=== PATIENT | male | born 1965 | race Caucasian/White ===

== ENCOUNTER → 2017-12-12 09:40 | Outpatient (CLI) | payer BC, SELFPAY ==
[2017-12-12 11:07] LABS: Amphetamine Urine VISTA NEGATIVE (<1000 ng/mL); Barbiturate Urine VISTA NEGATIVE (< 200 ng/mL); Benzodiazepine Urine VISTA NEGATIVE (< 200 ng/mL); Cocaine Urine VISTA NEGATIVE (< 300 ng/mL); Ecstacy Urine VISTA NEGATIVE (< 500 ng/mL); Methadone Urine VISTA NEGATIVE (< 300 ng/mL); PCP Urine VISTA NEGATIVE (< 25 ng/mL); THC Urine VISTA NEGATIVE (< 50 ng/mL); Vista UDS pH Range 5
== END ==
PROVIDERS: Family Provider Family Medicine; PCP Family Medicine; Referring Provider Anesthesiology Pain Medicine; Visit Provider Anesthesiology Pain Medicine
DX: F11.20 Opioid dependence, uncomplicated (principal)
CPT/HCPCS: 80307

== ENCOUNTER → 2018-05-24 13:29 | Outpatient (CLI) | payer BC, SELFPAY ==
--- NOTE | 2018-05-24 13:34 | MRI_ITS ---
STUDY: MRI LUMBAR SPINE WITHOUT CONTRAST REASON FOR EXAM: Male, 52 years old. Lower back pain TECHNIQUE: Standardized fat and water weighted pulse sequences were obtained in the sagittal and axial planes. COMPARISON: None FINDINGS: T12-L1: Normal endplates. Normal disc height, hydration and morphology. Normal bilateral facet joints. Normal central canal and bilateral lateral recesses. Normal bilateral intervertebral neural foramina. Normal lumbar lordosis. There is no substantial scoliosis. Normal conus medullaris that terminates at the L1 level. L1-2: Endplate spondylosis. Decreased disc height and small circumferential disc bulge. Degenerative changes of the bilateral facet joints. Mild narrowing of the central canal and bilateral intervertebral neural foramina. L2-3: Normal endplates. Normal disc height, hydration and morphology. Normal bilateral facet joints. Normal central canal and bilateral lateral recesses. Normal bilateral intervertebral neural foramina. L3-4: Endplate spondylosis. Decreased disc height and small circumferential disc bulge. Degenerative changes of the bilateral facet joints. Mild narrowing of the central canal and bilateral intervertebral neural foramina. L4-5: Endplate spondylosis. Decreased disc height and moderate circumferential disc bulge. 5 mm spondylolisthesis. Degenerative changes of the bilateral facet joints. Severe narrowing of the central canal and moderate narrowing of the bilateral intervertebral neural foramina. L5-S1: Endplate spondylosis. Bilateral laminectomy and posterior fusion. Degenerative changes of the bilateral facet joints. Mild narrowing of the bilateral intervertebral neural foramina. Normal visualized sacral ala. Normal visualized paraspinous soft tissue structures. MRI/Spine Lumbar (Routine) IMPRESSION: Multilevel degenerative changes, as described above. Electronically Signed: Clint Cope, at 8:21 EDT Tel , Service support ,
--- NOTE | 2018-05-24 13:50 | RAD_ITS ---
STUDY: X-RAY - ORBITS REASON FOR EXAM: Male, 52 years old. This study is being performed as a clearance examination for exclusion of orbital metal, prior to the performance of an MRI examination. TECHNIQUE: 2 view(s) of the orbits were obtained. COMPARISON: None. FINDINGS: Normal bilateral orbits without a metallic orbital foreign body. Normal visualized facial bones. Normal paranasal sinuses. The soft tissue structures are unremarkable. RAD/Orbits for Foreign Body IMPRESSION: No demonstrated metallic orbital foreign body. The patient is cleared for an MRI examination. Electronically Signed: Severino Leone, at 13:59 EDT , Service support ,
== END ==
LOC: MRI 13:30
PROVIDERS: Family Provider Family Medicine; PCP Family Medicine; Referring Provider Anesthesiology Pain Medicine; Visit Provider Anesthesiology Pain Medicine
DX: M54.9 Dorsalgia, unspecified (principal); M79.606 Pain in leg, unspecified
CPT/HCPCS: 70030; 72148

== ENCOUNTER → 2019-09-24 10:05 | Outpatient (CLI) | payer BC, SELFPAY ==
[2019-09-24 12:29] LABS: Amphetamine Urine VISTA NEGATIVE (<1000 ng/mL); Barbiturate Urine VISTA NEGATIVE (< 200 ng/mL); Benzodiazepine Urine VISTA NEGATIVE (< 200 ng/mL); Cocaine Urine VISTA NEGATIVE (< 300 ng/mL); Ecstacy Urine VISTA NEGATIVE (< 500 ng/mL); Methadone Urine VISTA NEGATIVE (< 300 ng/mL); PCP Urine VISTA NEGATIVE (< 25 ng/mL); THC Urine VISTA NEGATIVE (< 50 ng/mL); Vista UDS pH Range 7
== END ==
PROVIDERS: PCP Family Medicine; Referring Provider Anesthesiology Pain Medicine; Visit Provider Anesthesiology Pain Medicine
DX: F11.20 Opioid dependence, uncomplicated (principal)
CPT/HCPCS: 80307

== ENCOUNTER → 2020-04-05 09:18 | Outpatient (CLI) | payer BC, SELFPAY ==
[2020-04-05 10:13] LABS: Amphetamine Urine VISTA NEGATIVE (<1000 ng/mL); Barbiturate Urine VISTA NEGATIVE (< 200 ng/mL); Benzodiazepine Urine VISTA NEGATIVE (< 200 ng/mL); Cocaine Urine VISTA NEGATIVE (< 300 ng/mL); Ecstacy Urine VISTA POSITIVE (< 500 ng/mL); Methadone Urine VISTA NEGATIVE (< 300 ng/mL); PCP Urine VISTA NEGATIVE (< 25 ng/mL); THC Urine VISTA NEGATIVE (< 50 ng/mL); Vista UDS pH Range 5
== END ==
PROVIDERS: PCP Family Medicine; Referring Provider Anesthesiology Pain Medicine; Visit Provider Anesthesiology Pain Medicine
DX: F11.20 Opioid dependence, uncomplicated (principal)
CPT/HCPCS: 80307

== ENCOUNTER → 2021-02-24 10:24 | Outpatient (CLI) | payer BC, SELFPAY ==
[2021-02-24 11:05] LABS: Amphetamine Urine VISTA NEGATIVE (<1000 ng/mL); Barbiturate Urine VISTA NEGATIVE (< 200 ng/mL); Benzodiazepine Urine VISTA NEGATIVE (< 200 ng/mL); Cocaine Urine VISTA NEGATIVE (< 300 ng/mL); Ecstacy Urine VISTA POSITIVE (< 500 ng/mL); Methadone Urine VISTA NEGATIVE (< 300 ng/mL); PCP Urine VISTA NEGATIVE (< 25 ng/mL); THC Urine VISTA NEGATIVE (< 50 ng/mL); Vista UDS pH Range 6
== END ==
PROVIDERS: PCP Family Medicine; Visit Provider Anesthesiology Pain Medicine
DX: F11.20 Opioid dependence, uncomplicated (principal)
CPT/HCPCS: 80307

== ENCOUNTER → 2022-02-23 | Outpatient (CLI) | payer BC, SELFPAY ==
[2022-02-23 10:45] LABS: Amphetamine Urine VISTA NEGATIVE (<1000 ng/mL); Barbiturate Urine VISTA NEGATIVE (< 200 ng/mL); Benzodiazepine Urine VISTA NEGATIVE (< 200 ng/mL); Cocaine Urine VISTA NEGATIVE (< 300 ng/mL); Ecstacy Urine VISTA POSITIVE (< 500 ng/mL); Methadone Urine VISTA NEGATIVE (< 300 ng/mL); PCP Urine VISTA NEGATIVE (< 25 ng/mL); THC Urine VISTA NEGATIVE (< 50 ng/mL); Vista UDS pH Range 5
== END | disposition home or self-care (01) ==
PROVIDERS: PCP Family Medicine; Referring Provider Anesthesiology Pain Medicine; Visit Provider Anesthesiology Pain Medicine
DX: F11.20 Opioid dependence, uncomplicated (principal)
CPT/HCPCS: 80307

== ENCOUNTER → 2024-10-30 | Outpatient (CLI) | payer BC, SELFPAY ==
--- NOTE | 2024-10-30 08:34 | RAD_ITS ---
PROCEDURE: CERV SPINE 2 OR 3 VIEWS 10/30/2024 REASON FOR EXAM: RADICULOPATHY, CERVICAL REGION TECHNIQUE: CERV SPINE 2 OR 3 VIEWS COMPARISON: None. FINDINGS: BONES: No fracture or focal osseous lesion. Anatomic spinal alignment. DISC/DEGENERATIVE CHANGES: Moderate disc space narrowing at C6-C7. Minimal vertebral endplate osteophytes at a few levels. Multilevel facet arthropathy bilaterally. SOFT TISSUES: No acute abnormality seen. RAD/Cerv Spine 2 or 3 Views IMPRESSION: 1. No acute osseous abnormality. 2. Spondylosis and degenerative disc disease. Reading Location: [id number]
== END | disposition home or self-care (01) ==
PROVIDERS: PCP Family Medicine; Referring Provider Anesthesiology Pain Medicine; Visit Provider Anesthesiology Pain Medicine
DX: M54.12 Radiculopathy, cervical region (principal)
CPT/HCPCS: 72040

== ENCOUNTER → 2024-12-12 | Outpatient (CLI) | payer BC, SELFPAY ==
--- NOTE | 2024-12-12 07:29 | MRI_ITS ---
PROCEDURE: SPINE CERVICAL (ROUTINE) 12/12/2024 REASON FOR EXAM: RADICULOPATHY TECHNIQUE: Procedure Code: MRISP Modality: MR Procedure: SPINE CERVICAL (ROUTINE) Multiplanar and multisequence images were obtained without IV contrast administration. COMPARISON: Radiographs dated 10/30/2024. FINDINGS: No acute fracture. Minimal grade 1 anterolisthesis of C4 on C5. Minimal to mild disc narrowing with anterior and posterior annular tears are noted at C4-5, C5-6, and C6-7. The bone marrow signal is unremarkable. The cervical cord is normal in size and signal. The cervicomedullary junction and prevertebral soft tissues appear unremarkable. C2-3: Unremarkable. No significant canal or neural foraminal narrowing. C3-4: Mild posterior disc bulge and mild bilateral facet arthrosis result in mild bilateral neural foraminal narrowing. No significant thecal sac narrowing. C4-5: Minimal grade 1 anterolisthesis of C4 on C5, mild disc narrowing, mild bilateral uncovertebral spurring, and left facet arthrosis result in moderate left and mild right neural foraminal narrowing. C5-6: Mild disc narrowing, a diffuse posterior disc bulge, bilateral uncovertebral spurring, and bilateral facet arthrosis result in mild narrowing of the thecal sac to 9 mm (AP) and severe bilateral neural foraminal narrowing. C6-7: Moderate disc narrowing, a diffuse posterior disc bulge, bilateral uncovertebral spurring, and bilateral facet arthrosis result in borderline narrowing of the thecal sac to 10 mm (AP) and severe right and mild left neural foraminal narrowing. C7-T1: Unremarkable. No significant canal or neural foraminal narrowing. MRI/Spine Cervical (Routine) IMPRESSION: Moderate cervical spondylosis, as described above. Reading Location: [id number]
--- OUTSIDE RECORDS SUMMARY | 2024-12-12 07:30 | XMS RPT_ITS | CCD ---
Author Organization [facility] Care Team Providers Care Independent Distributor Name Role Phone Silvia TERRENCE, Marimar Hutchison Unavailable Unavailable Primary Care Provider Unavailabl e Jose Manuel TREVINO, Kelli Unavailable Patrice CATHERINE, Marin Olsen Unavailable [phone] Sheets DO, Navya C Primary Care Provider Sheets DO, Navya C Primary Care Provider Sheets DO, Navya C Primary Care Provider [phone] Sheets DO, Navya C Primary Care Provider SHEETS, NAVYA C Referring Unavailable SHEETS, NAVYA C Primary Care Unavailable Unavailable Primary Care Provider UnavailLianet Pierce MD Unavailable [phone] SHEETS, NAVYA C Primary Care Unavailable KARON BRANDON Attending Unavailable SHEETS, NAVYA C Attending Unavailable SELF Referring Unavailable SHEETS, NAVYA C Primary Care Unavailable SHEETS, NAVYA C Referring Unavailable SHEETS, NAVYA C Primary Care Unavailable SHEETS, NAVYA C Attending Unavailable SHEETS, NAVYA C Primary Care Unavailable SHEETS, NAVYA C Attending Unavailable SELF Referring Unavailable SHEETS, NAVYA C Primary Care Unavailable SHEETS, NAVYA C Referring Unavailable SHEETS, NAVYA C Primary Care Unavailable PROVIDER, UNKNOWN Admitting Unavailable PROVIDER, UNKNOWN Attending Unavailable LIANET ALONZO Attending Unavailable PROVIDER, UNKNOWN Admitting Unavailable PROVIDER, UNKNOWN Attending Unavailable PROVIDER, UNKNOWN Admitting Unavailable PROVIDER, UNKNOWN Admitting Unavailable PROVIDER, UNKNOWN Attending Unavailable PROVIDER, UNKNOWN Admitting Unavailable LIANET ALONZO Attending Unavailable Sheets DO, Dr. Navya Primary Care Provider Dr. Michael King MD Attending Provider Dr. Michael King MD Referring Provider Navya Rodríguez Primary Care Unavailable Michael King Attending Unavailable Michael King Referring Unavailable Michael King Referring Unavailable Navya Rodríguez Primary Care Unavailable Michael King Attending Unavailable Allergies Allergy Classification Reported Allergen(s) Allergy Type Date of Onset Reaction(s) Facility Chlorpheniramine / Pseudoephedrine (2 sources) Chlorpheniramine / Pseudoephedrine Drug Allergy 10-20-19 16 [facility] Glycopeptides (antibiotic) (2 sources) Vancomycin Drug Allergy 10-20-19 16 [facility] Pollen (2 sources) Pollen Substance Allergy 11-28-19 15 Other: See Comments [facility] (4 sources) House dust mite; Translations: [DUST MITES] allergy to substance 11-28-19 15 head congestion [facility] Work Phone: (4 sources) Mold Extract; Translations: [MOLD] Drug Allergy 09-24-19 21 head congestion [facility] Work Phone: (4 sources) PLANT POLLENS; Translations: [PLANT POLLENS] allergy to substance 09-24-19 21 hay fever [facility] Work Phone: (20 sources) Chlorpheniramine / Pseudoephedrine; Translations: [MED-HIST] Drug Allergy 10-20-19 16 [facility] (20 sources) Pollen; Translations: [POLLENS EXTRACT] Drug Allergy 11-28-19 15 Other: See Comments [facility] (20 sources) Vancomycin; Translations: [VANCOMYCIN] Drug Allergy 10-20-19 16 [facility] (14 sources) redtop grass pollen extract; Translations: [GRAMINEAE POLLENS] Drug Allergy 11-28-19 15 Other [facility] Medications Current Medications Medication Drug Class(es) Dates Sig (Normalized) Sig (Original) cephalexin 500 mg oral capsule (3 sources) Cephalosporin Antibacterial Start: 08-28-2023 End: 09-02-2023 take 1 capsule by mouth four times daily cephALEXin (KEFLEX) 500 mg capsule Take 1 capsule by mouth four times daily for 5 days. 20 capsule 0 08/28/2023 09/02/2023 Active Start: 08-18-2022 End: 08-25-2022 take 1 capsule by mouth four times daily cephALEXin (KEFLEX) 500 mg capsule Take 1 capsule by mouth four times daily for 7 days. 28 capsule 0 08/18/2022 08/25/2022 Active Comment on above: Take 1 capsule by [facility] four times daily for 7 days. erythromycin 0.005 mg/mg ophthalmic ointment (1 source) Macrolide, Macrolide Antimicrobial Start: 023 End: erythromycin (ROMYCIN) 5 mg/gram (0.5 %) ophthalmic ointment Use 1 application in the left eye four times daily for 7 days. 1 g 0 07/08/2022 07/15/2022 Active Comment on above: Use 1 application in the left eye four times daily for 7 days. ondansetron 4 mg disintegrating oral tablet (1 source) Serotonin-3 Receptor Antagonist Start: End: take 1 tablet by mouth every six hours as needed ondansetron orally disintegrating (ZOFRAN ODT) 4 mg disintegrating tablet Take 1 tablet by mouth every 6 hours as needed for nausea/vomiting for up to 7 days. 20 tablet 0 07/11/2021 07/18/2021 Active Comment on above: Take 1 tablet by [facility] every 6 hours as needed for nausea/vomiting for up to 7 days. predniSONE 1 mg oral tablet (20 sources) Start: 025 End: 025 take 2 tablets by mouth once daily, then take 1 tablet by mouth once daily predniSONE (DELTASONE) 1 MG tablet Indications: Polymyalgia rheumatica (HCC) Take 2 Tablets by mouth daily for 30 days, THEN 1 Tablet daily. 90 Tablet 09/29/2024 11/28/2024 Active Start: 07-03-2024 End: 09-01-2024 take 4 tablets by mouth once daily, then take 3 tablets by mouth once daily predniSONE (DELTASONE) 1 MG tablet Indications: Polymyalgia rheumatica (HCC) Take 4 Tablets by mouth daily for 30 days, THEN 3 Tablets daily. 210 Tablet 07/03/2024 09/01/2024 Active Start: 03-03-2024 End: 06-01-2024 take 4 tablets by mouth once daily, then take 3 tablets by mouth once daily, then take 2 tablets by mouth once daily predniSONE (DELTASONE) 1 MG tablet Take 4 Tablets by mouth daily for 30 days, THEN 3 Tablets daily for 30 days, THEN 2 Tablets daily. 270 Tablet 03/03/2024 06/01/2024 Active Start: 03-03-2024 End: 10-06-2024 take 1 tablet by mouth once daily predniSONE (DELTASONE) 5 MG tablet Take 1 Tablet by mouth daily. 30 Tablet 2 03/03/2024 07/03/2024 Discontinued Start: 12-10-2023 End: 02-08-2024 take 3.5 tablets by mouth once daily predniSONE (DELTASONE) 5 MG tablet Take 3.5 Tablets by mouth daily. 105 Tablet 1 12/10/2023 02/08/2024 Active Start: 08-21-2023 End: 12-10-2023 take 1 tablet by mouth once daily predniSONE (DELTASONE) 20 mg tablet Indications: Arthralgia, unspecified joint Take 1 tablet by mouth once daily. 20 tablet 11/23/2023 Active Start: 09-11-2022 End: 09-16-2022 take 2 tablets by mouth once daily predniSONE (DELTASONE) 20 mg tablet Take 2 tablets by mouth once daily for 5 days. 10 tablet 0 09/11/2022 09/16/2022 Active Start: 10-13-2021 take 3 tablets by mo ut once daily, then take 2 tablets by mouth once daily, then take 1 tablet by mouth once daily predniSONE (DELTASONE) 20 mg tablet Indications: Poison sai Take 3 pills by mouth daily for 3 days, then 2 pills by mouth daily for 3 days, then 1 pill by mouth daily for 3 days 18 tablet 0 10/13/2021 Active take 1 tablet by danny once daily predniSONE (DELTASONE) 1 mg tablet Indications: Chronic left shoulder pain Take 1 mg by mouth once daily. Active Comment on above: Take 3 pills by mout h daily for 3 days, then 2 pills by mouth daily for 3 days, then 1 pill by mouth daily for 3 days Take 2 tablets by mo uth once daily for 5 days. sertraline 50 mg oral tablet (20 sources) Serotonin Reuptake Inhibitor Start: 05-07-2023 End: 08-28-2024 take 1 tablet by mouth once daily sertraline (ZOLOFT) 50 MG tablet Take 50 mg by mouth daily. 10/15/2023 Active Start: 08-06-2020 End: 02-12-2023 take 1 tablet by mouth once daily sertraline (ZOLOFT) 50 mg tablet Indications: Depressive disorder take 1 tablet by mouth once daily 30 tablet 2 02/12/2023 Active Comment on above: take 1 tablet by danny th once daily SUMAtriptan 100 mg oral tablet (20 sources) Serotonin-1b and Serotonin-1d Receptor Agonist Start: 1 End: 5 take 1 tablet by mouth every two hours, then take 2 tablets by mouth every twenty-four hours SUMAtriptan (IMITREX) 100 MG tablet take 1 tablet by mouth AT ONSET OF HEADACHE may repeat in 2 hours IF headache PERSISTS maximum daily dose of 2 tablets ( 200 milligrams ) every 24 hours 11/13/2023 Active Comment on above: take 1 tablet by danny th AT ONSET OF HEADACHE may repeat in 2 hours if needed maximum daily dose of 2 Take 1 tablet when h eadache starts, may take again in 2 hours, no more than 2 tablets in 24 hours traMADol hydrochloride 50 mg oral tablet (20 sources) Opioid Agonist Start: 0 take 1 tablet by mouth twice daily TRAMADOL HCL 50 MG TABS 1 tablet by mouth twice a day tramadol [id number] [facility] Start: 05-12-2019 take 1 tablet by danny th three times daily tramadol (ULTRAM) 50 MG tablet Take 50 mg by mouth 3 times daily. 11/02/2023 Active Comment on above: tid traZODone hydrochloride 150 mg oral tablet (20 sources) Serotonin Reuptake Inhibitor Start: 2 End: 5 take 1 tablet by mouth at bedtime trazodone 150 MG tablet Take 150 mg by mouth at bedtime. 10/04/2023 Active Start: 05-08-2021 take 1 tablet by danny th at bedtime traZODone (DESYREL) 150 mg tablet Indications: Chronic insomnia take 1 tablet by mouth at bedtime 30 tablet 5 05/08/2021 Active Start: 09-23-2020 take 2 tablets by mo uth once daily TRAZODONE HCL 50 MG TABS 2 tablet by mouth every night trazodone [id number] Tamra Campos [employer] ARTIST Comment on above: take 1 tablet by danny th at bedtime Take 1 tablet by danny th daily at bedtime. Completed/Discontinued Medications Medication Drug Class(es) Dates Sig (Normalized) Sig (Original) [id number] 200 actuat albuterol 0.09 mg/actuat metered dose inhaler (20 sources) beta2-Adrenergic Agonist Start: 07-15-2020 End: 09-04-2023 take 2 puff(s) by inhalation every four hours as needed albuterol HFA (PROAIR HFA) 90 mcg/actuation inhaler Indications: Mild intermittent asthma with acute exacerbation Inhale 2 Puffs as instructed every 4 hours as needed. 1 Each 2 07/15/2020 09/04/2023 Discontinued Comment on above: Inhale 2 Puffs as in structed every 4 hours as needed. betamethasone 3 mg/ml / betamethasone acetate 3 mg/ml injectable suspension (1 source) Corticosteroid Start: 04-23-2023 End: 04-23-2023 betamethasone acetate-betamethas one sodium phosphate 6 mg injection (CELESTONE) fluticasone propionate 0.05 mg/actuat metered dose nasal spray (20 sources) Corticosteroid Start: 04-04-2021 End: 09-04-2023 take 1 spray(s) nasal route once daily fluticasone (FLONASE) 50 mcg/actuation nasal spray instill 1 spray into each nostril once daily 16 g 2 09/20/2021 09/04/2023 Discontinued Comment on above: instill 1 spray into each nostril once daily fluticasone / salmeterol (20 sources) Corticosteroid, beta2-Adrenergic Agonist Start: 06-29-2021 End: 08-21-2023 take 1 puff(s) by mouth twice daily fluticasone-salmet neena (ADVAIR, WIXELA) 250-50 mcg/dose inhaler Indications: Moderate persistent asthma, uncomplicated inhale 1 puff by mouth twice a day 1 Each 2 06/29/2021 08/21/2023 Discontinued (Other) Start: 06-29-2021 take 1 puff(s) by [facility] twice daily fluticasone-salmeterol (ADVAIR, WIXELA) 250-50 mcg/dose inhaler Indications: Moderate persistent asthma, uncomplicated inhale 1 puff by mouth twice a day 1 Each 2 06/29/2021 Active Start: 05-04-2021 End: 06-29-2021 take 1 puff(s) by mouth twice daily fluticasone-salmeterol (ADVAIR, WIXELA) 250-50 mcg/dose inhaler Indications: Moderate persistent asthma, uncomplicated inhale 1 puff by mouth twice a day 1 Each 2 06/29/2021 Active Comment on above: inhale 1 puff by danny th twice a day inhale 1 puff by danny and INTO THE LUNGS twice a day Lidocaine (1 source) Antiarrhythmic, Amide Local Anesthetic Start: 4 End: 4 lidocaine 10 mg/mL (1 %) 1 mL injection (XYLOCAINE) lisinopril 10 mg oral tablet (11 sources) Angiotensin Converting Enzyme Inhibitor Start: 2 take 1 tablet by mouth once daily lisinopril (ZESTRIL, PRINIVIL) 10 mg tablet Indications: Essential hypertension take 1 tablet by mouth once daily 30 tablet 1 05/19/2021 Active lisinopril table t tablet by mouth lisinopril tablet Shahida Lopez Comment on above: take 1 tablet by danny once daily loperamide hydrochloride 2 mg oral capsule (5 sources) Opioid Agonist Start: 2 End: 2 take 1 capsule by mouth every six hours as needed loperamide (IMODIUM) 2 mg cap(s) Take 1 capsule by mouth four times daily as needed for diarrhea for up to 7 days. 20 capsule 0 07/11/2021 Active Comment on above: Take 1 capsule by [facility] four times daily as needed for diarrhea for up to 7 days. 12 hr morphine sulfate 15 mg extended release oral tablet (20 sources) Opioid Agonist Start: 1 take 1 tablet by mouth twice daily MS CONTIN 15 MG CR-TABS 1 tablet by mouth twice a day morphine [id number] Tamra Pichardos [employer] Start: 10-22-2019 take 1 tablet by danny th twice daily morphine SR (MS CONTIN, ORAMORPH SR) 15 mg 12 hr tablet TAKE 1 TABLET BY MOUTH TWICE DAILY for up to 28 days 10/22/2019 Active Comment on above: TAKE 1 TABLET BY DANNY TH TWICE DAILY for up to 28 days naproxen 500 mg oral tablet (1 source) Nonsteroidal Anti-inflammatory Drug Start: 12-05-2019 NAPROSYN 500 MG TABS 1 tablet by mouth as directed as needed naproxen [id number] Tamra Campos [employer] ART[employer] Problems Active Problems Problem Classification Problem Date Documented Da te Episodic/Chronic Allergic reactions (12 sources) Contact dermatitis due to poison sai; Translations: [Allergic contact dermatitis due to plants, except food] Onset: 05-03-2018 05-03-2018 Episodic Asthma (20 sources) Uncomplicated moderate persistent asthma; Translations: [Moderate persistent asthma, uncomplicated] Onset: 11-19-2015 Chronic Disorders of lipid metabolism (20 sources) Mixed hyperlipidemia; Translations: [Mixed hyperlipidemia] Onset: 06-22-2017 06-22-2017 Chronic Essential hypertension (11 sources) Essential hypertension; Translations: [Essential (primary) hypertension] 03-08-2021 Chronic Headache; including migraine (20 sources) Migraine without aura, not refractory ; Translations: [Migraine without aura, not intractable, without status migrainosus] Onset: 05-03-2018 05-03-2018 Chronic Miscellaneous mental health disorders (20 sources) Chronic insomnia; Translations: [Psychophysiologic insomnia] Onset: 10-13-2016 Resolved: 03-23-2017 03-23-2017 Chronic Mood disorders (20 sources) Depressive disorder; Translations: [Depressive disorder] 03-08-2021 Chronic Osteoarthritis (4 sources) Bilateral primary osteoarthritis of knee; Translations: [Osteoarthrosis, localized, primary, lower leg] Onset: 08-21-2019 08-21-2019 Chronic Other aftercare (2 sources) Postoperative visit; Translations: [Encounter for other specified surgical aftercare] Onset: 06-21-2021 06-22-2021 Episodic Other connective tissue disease (4 sources) History of total knee arthroplasty; Translations: [Presence of right artificial knee joint] Onset: 04-04-2021 04-05-2021 Chronic Other connective tissue disease (20 sources) Polymyalgia rheumatica; Translations: [Polymyalgia rheumatica] Onset: 12-25-2023 12-25-2023 Chronic Other connective tissue disease (1 source) Polymyalgia rheumatica; Translations: [Polymyalgia rheumatica (HCC)] Onset: 12-31-2023 Chronic Other connective tissue disease (3 sources) H/O: osteoarthritis; Translations: [Personal history of other diseases of the musculoskeletal system and connective tissue] 11-23-2023 Episodic Other gastrointestinal disorders (1 source) Stool DNA-based colorectal cancer screening positive; Translations: [Other fecal abnormalities] 11-03-2022 Episodic Other nervous system disorders (1 source) Other chronic pain; Translations: [Chronic left shoulder pain] Onset: 10-06-2024 Chronic Other nervous system disorders (3 sources) Paresthesia of hand ; Translations: [Anesthesia of skin] 08-29-2023 Episodic Other nervous system disorders (2 sources) Anesthesia of skin; Translations: [Numbness and tingling in left hand] Onset: 08-29-2023 Episodic Other nervous system disorders (2 sources) Paresthesia of skin; Translations: [Numbness and tingling in left hand] Onset: 08-29-2023 Episodic Other non-traumatic joint disorders (4 sources) Arthropathy of knee joint; Translations: [Ankylosis, unspecified knee] Onset: 05-20-2021 05-20-2021 Chronic Other non-traumatic joint disorders (20 sources) Pain in left shoulder; Translations: [Pain in joint, shoulder region] Onset: 06-22-2017 06-22-2017 Episodic Other non-traumatic joint disorders (2 sources) Joint pain; Translations: [Pain in unspecified joint] 10-23-2023 Episodic Other non-traumatic joint disorders (2 sources) Hip pain; Translations: [Pain in right hip] 10-23-2023 Episodic Other non-traumatic joint disorders (6 sources) Multiple joint pain; Translations: [Pain in unspecified joint] 11-23-2023 Episodic Other non-traumatic joint disorders (1 source) Chronic pain of left upper limb; Translations: [Pain in left shoulder] 10-06-2024 Episodic Other nutritional; endocrine; and metabolic disorders (20 sources) Obese class I; Translations: [Obesity, unspecified] Onset: 06-22-2017 06-22-2017 Chronic Other nutritional; endocrine; and metabolic disorders (20 sources) Body mass index 30+ - obesity; Translations: [Body mass index (BMI) 31.0-31.9, adult] Onset: 04-21-2019 05-20-2021 Chronic Other screening for suspected conditions (not mental disorders or infectious disease) (1 source) Encounter for screening for malignant neoplasm of prostate; Translations: [Screening for prostate cancer] Onset: 10-06-2024 Episodic Residual codes; unclassified (3 sources) Edema of right lower leg; Translations: [Localized edema] Onset: 06-20-2021 06-20-2021 Episodic Spondylosis; intervertebral disc disorders; other back problems (4 sources) Degeneration of lumbar intervertebral disc; Translations: [Other intervertebral disc degeneration, lumbar region] Onset: 06-24-2018 06-24-2018 Chronic Spondylosis; intervertebral disc disorders; other back problems (20 sources) Spinal stenosis; Translations: [Spinal stenosis, site unspecified] Onset: 11-19-2015 Resolved: 05-26-2016 06-24-2018 Episodic Superficial injury; contusion (1 source) Abrasion of left upper arm, initial encounter; Translations: [Abrasion of left arm, initial encounter] Onset: 10-24-2024 Episodic Unclassified (1 source) Chronic pain of left upper limb 10-28-2024 Unclassified (1 source) Obesity, Class I, BMI 30-34.9; Translations: [Obesity, Class I, BMI 30-34.9] Onset: 06-22-2017 Unclassified (1 source) F/U HTN 6 Month Onset: 07-02-2024 Past or Other Problems Problem Classification Problem Date Documented Date Episodic/Chronic Fracture of lower limb (20 sources) Fracture of tibial plateau; Translations: [Displaced bicondylar fracture of unspecified tibia, initial encounter for closed fracture] Onset: 01-07-2015 Resolved: 11-19-2015 11-19-2015 Episodic Immunizations and screening for infectious disease (11 sources) Patient encounter status; Translations: [Encounter for immunization] Onset: 11-23-2023 09-22-2022 Episodic Infective arthritis and osteomyelitis (except that caused by tuberculosis or sexually transmitted disease) (4 sources) Bacterial arthritis; Translations: [Pyogenic arthritis, unspecified] Onset: 12-17-2014 12-17-2014 Episodic Joint disorders and dislocations; trauma-related (4 sources) Tear of medial meniscus of knee; Translations: [Other tear of medial meniscus, current injury, left knee, initial encounter] Onset: 10-31-2019 10-31-2019 Episodic Joint disorders and dislocations; trauma-related (4 sources) Tear of medial meniscus of knee; Translations: [Other tear of medial meniscus, current injury, right knee, initial encounter] Onset: 12-02-2015 12-02-2015 Episodic Other acquired deformities (4 sources) Stenosis of lumbar vertebral foramen; Translations: [Other biomechanical lesions of lumbar region] Onset: 06-24-2018 06-24-2018 Episodic Other acquired deformities (4 sources) Spondylolisthesis; Translations: [Spondylolisthesis, lumbar region] Onset: 06-24-2018 06-24-2018 Episodic Other circulatory disease (20 sources) Elevated blood-pressure reading without diagnosis of hypertension; Translations: [Elevated blood-pressure reading, without diagnosis of hypertension] Onset: 08-21-2023 08-21-2023 Episodic Other connective tissue disease (4 sources) Lateral epicondylitis of right humerus; Translations: [Lateral epicondylitis, right elbow] Onset: 2019 2019 Episodic Other connective tissue disease (4 sources) Complete rotator cuff tear or rupture of left shoulder, not specified as traumatic; Translations: [Complete rupture of rotator cuff] Onset: 09-06-2017 09-06-2017 Episodic Other connective tissue disease (8 sources) Impingement syndrome of shoulder region; Translations: [Impingement syndrome of left shoulder] Onset: 06-24-2015 09-06-2017 Episodic Other connective tissue disease (20 sources) Triggering of digit; Translations: [Trigger finger, right middle finger] Onset: 09-22-2022 09-22-2022 Episodic Other connective tissue disease (20 sources) Tendonitis of left ankle; Translations: [Other enthesopathy of left foot and ankle] Onset: 08-21-2023 08-21-2023 Episodic Other infections; including parasitic (20 sources) Personal history of other infectious and parasitic diseases; Translations: [History of COVID-19] Onset: 05-20-2021 05-20-2021 Episodic Other non-traumatic joint disorders (9 sources) Shoulder pain; Translations: [Pain in left shoulder] Onset: 06-22-2017 06-22-2017 Episodic Other non-traumatic joint disorders (20 sources) Bilateral chronic pain of upper limbs; Translations: [Pain in right shoulder] Onset: 08-21-2023 08-21-2023 Episodic Other non-traumatic joint disorders (2 sources) Pain in unspecified joint; Translations: [Arthralgia, unspecified joint] Onset: 11-23-2023 Episodic Other nutritional; endocrine; and metabolic disorders (1 source) Personal history of other endocrine, nutritional and metabolic disease; Translations: [History of hypokalemia] Onset: 12-28-2023 Episodic Other skin disorders (20 sources) Eruption; Translations: [Rash and other nonspecific skin eruption] Onset: 03-23-2017 Resolved: 06-22-2017 06-22-2017 Episodic Residual codes; unclassified (4 sources) Edema of left lower leg; Translations: [Localized edema] Onset: 12-05-2019 12-05-2019 Episodic Residual codes; unclassified (4 sources) History of arthroscopy of knee joint; Translations: [Other specified postprocedural states] Onset: 12-05-2019 12-05-2019 Episodic Residual codes; unclassified (4 sources) History of arthroscopy of knee joint; Translations: [Other specified postprocedural states] Onset: 12-17-2015 12-17-2015 Episodic Unclassified (4 sources) Problem Results Test Name Value Interpretation Reference Range Facility C-REACTIVE PROTEINon 025 CRP [Mass/Vol] mg/L Normal <0.5 [facility] Comment on above: Performed By: #### C RP #### [facility] [address] [place], [place], ERYTHROCYTE SEDIMENTATION RA Annelise 10-31-2024 ESR (Bld) [Velocity] 27 mm/h High <=20 [facility] Comment on above: Performed By: #### E SR ####[facility] [id number] [place], [place], Progress Noteson 10-31-2024 Internet Developer Authentication Interface Message Text Patient was identified by name and date of . Savannah Lion MA Venipuncture performed on right hand with no complications. Site free of swelling and redness. Pressure held on site until hemostasis achieved. Placed cotton ball and tape on site. Pt tolerated procedure well. Normal [facility] [employer] [facility] Cerv Spine 2 or 3 Viewson Cerv Spine 2 or 3 Views [facility] [address] [place], [place] [address] Cerv Spine 2 or 3 Views MR#: [id number] Acct: [id number] Name: ALIX WOODY Rep #: [id number] : 1965 M 58 From: Natalia Sanabria MD PCP: Dr. Navya Rodríguez DO Status: REG CLI Study: Cerv Spine 2 or 3 Views Date of Exam: 10/30/24 Exam# [id number] Ordering Dr: Michael King MD PROCEDURE: CERV SPINE 2 OR 3 VIEWS 10/30/2024 REASON FOR EXAM: RADICULOPATHY, CERVICAL REGION TECHNIQUE: CERV SPINE 2 OR 3 VIEWS COMPARISON: None. FINDINGS: BONES: No fracture or focal osseous lesion. Anatomic spinal alignment. DISC/DEGENERATIVE CHANGES: Moderate disc space narrowing at C6-C7. Minimal vertebral endplate osteophytes at a few levels. Multilevel facet arthropathy bilaterally. SOFT TISSUES: No acute abnormality seen. RAD/Cerv Spine 2 or 3 Views IMPRESSION: 1. No acute osseous abnormality. 2. Spondylosis and degenerative disc disease. Reading Location: [facility] CC: Dr. Michael King MD; Dr. Navya Rodríguez DO Production Control Planner: Signed [facility] ED NOTEon 10-24-2024 ED NOTE HNO ID: [id number] Author: KEVEN VANESSA RN Service: Nursing Author Type: Registered Nurse Type: ED Notes Filed: 10/24/2024 19:06 Note Text: Pt was chopping wood and was cut by the tree as it was a falling Normal [facility] ED PROV NOTEon 10-24-2024 ED PROV NOTE HNO ID: [id number] Author: KARON BRANDON MD Service: Emergency Medicine Author Type: Physician Type: ED Provider Notes Filed: 10/24/2024 22:57 Note Text: ED Provider Note Patient Name: Alix Woody : 1965 SERVICE DATE: 10/24/24 History Patient presents with: Laceration Alix Woody is a 58 year old male with history of no chronic medical problems who presents with Laceration. Patient took nothing for this prior to arrival. - Symptoms began this evening. - Severity: mild - Timing: constant - Quality: Left arm abrasion - Laceration is exacerbated by movement. - Laceration is not exacerbated by rest. - Symptoms are associated with nothing. - Symptoms are not associated with pain. - Improved by nothing. Patient was cutting a tree down and the tree fell one of the sharp branches caught him on the top of the left forearm he has a skin injury and is not sure if it needs to be sutured plus he needs a tetanus shot he has not had one for many years PAST MEDICAL HISTORY Diagnosis Date Allergic rhinitis - Rx for Flonase nasal spray Asthma (HCC) - moderate persistent, Advair Backache - continue to see Dr. King, pain management Chronic back pain - chronic back pain, was seen and treated by Dr. Bailey, pain management at [facility], without relief, will refer to Dr. King, pain management, [place], [place] Depressive disorder - improved on Sertraline, trazodone Essential hypertension - continue Lisinopril - pt encouraged to put his medication in a daily pill dispenser to be able to keep track of taking it, check CBC, CMP, FLP Gastroesophageal reflux disease Insomnia - Restart trazodone Knee pain, right - s/p trauma, 2 prior surgeries in this knee, seeing Dr. Salgado, ortho, in [place]. Pt may return to work on 12/28/14 with limitations of not working more than 6 hours per day. Methicillin resistant Staphylococcus aureus infection - picc line is clogged - order given for pt to go to [facility] and have Picc line flushed with normal saline and heparin per protocol Migraine - less than twice per week, trial of motrin 800 mg every 8 hours as needed for pain Shoulder joint pain - handout on shoulder exercises, f/u with pain management for further plan of care Sleep deficient Staphylococcal arthritis, right knee (HCC) - s/p hospitalization, infection after arthroscopic surgery by Dr. Ibrahim, on home IV antibiotics PAST SURGICAL HISTORY Procedure Laterality Date APPENDECTOMY 1984 KNEE SURGERY HX Right 1977 right knee ORTHOPEDICS SURGERY HX PAST SURGICAL HISTORY OF 2004 Fusion of Spine- L5 - S1 PAST SURGICAL HISTORY OF 1994 Revision of lumbar spine- microdisection L5 - S1 SHOULDER ARTHROSCOPY/SURGERY Left 12/30/2010 left, subacromial decompression, Dr Ibrahim SEPTEMBER 2017 second surgery WRIST ARTHROSCOPY/SURGERY Left 2004 left. broken FAMILY HISTORY Problem Relation Age of Onset other (aortic aneurysm rupture) Paternal Grandfather Asthma Mother Ischemic Heart Disease Father other (Heart disease) Father Prostate Cancer Maternal Grandfather Social History[1] ALLERGIES Allergen Reactions Med-Hist Hives Hay Pollens Extract Other: See Comments Vancomycin Rash Review of Systems Gastrointestinal: Negative for nausea and vomiting. Skin: Positive for wound. Negative for color change. Allergic/Immunologic: Negative for environmental allergies, food allergies and immunocompromised state. Physical Exam Vitals BP Pulse Temp Temp src Resp SpO2 Weight Height 10/24/24 1905 10/24/24 19010/24/24 190 -- 10/24/24 1902 10/24/24 1902 10/24/24 190 -- 146/96 83 36.8 ?C (98.3 ?F) 16 95 % 99.8 kg (220 lb) Physical Exam Vitals and nursing note reviewed. Constitutional: General: He is not in acute distress. Appearance: Normal appearance. He is not ill-appearing. Pulmonary: Effort: Pulmonary effort is normal. No respiratory distress. Musculoskeletal: General: No swelling or tenderness. Comments: Superficial skin abrasion and avulsion left forearm about 4 cm in length no distal neurovascular changes. No foreign bodies noted. Skin: General: Skin is warm and dry. Capillary Refill: Capillary refill takes less than 2 seconds. Findings: No rash. Neurological: General: No focal deficit present. Mental Status: He is alert and oriented to person, place, and time. Psychiatric: Mood and Affect: Mood normal. Behavior: Behavior normal. Thought Content: Thought content normal. Diagnostic Testing ED Labs Ordered and Reviewed - No data to display Procedures ED Course / Clinical Impression Clinical Impressions as of 10/24/24 4159 Abrasion of left arm, initial encounter MDM / Disposition / Plan Left forearm wound is not requiring suture closure I think will do better to let the abrasion heal and there is a few small areas of superficial avulsion but no deep penetration into the (more content not included)... Normal [facility] CBC panel Auto (Bld)on 10-10 Erythrocyte distribution width (RBC) [Ratio] 12.2 % 11.5 - 15.0 % [facility] Hematocrit (Bld) [Volume fraction] 43.0 % 39.0 - 51.0 % [facility] Hemoglobin (Bld) [Mass/Vol] 14.5 g/dL 13.0 - 17.0 g/dL [facility] Interpretation and review of laboratory results Normal [facility] MCH (RBC) [Entitic mass] 30.8 pg 26.0 - 34.0 pg [facility] MCHC (RBC) [Mass/Vol] 33.7 g/dL 30.5 - 36.0 g/dL [facility] MCV (RBC) [Entitic vol] 91.3 fL 80.0 - 100.0 fL [facility] Platelet mean volume (Bld) [Entitic vol] 9.3 fL 9.0 - 12.7 fL [facility] Platelets (Bld) [#/Vol] 293 10*3/uL [facility] RBC (Bld) [#/Vol] 4.71 10*6/uL 4.20 - 6.0 0 m/uL [facility] WBC (Bld) [#/Vol] 6.89 10*3/uL [facility] Erythrocyte distribution width (RBC) [Ratio] 12.2 % Normal 11.5-15.0 [facility] Comment on above: Order Comment: Speci men Type: BLOOD SPECIMENOrdering Facility: [facility] Address: [address] [place] [address] Performed By: #### 5 8410-2 ####[facility] LABCLIA [id number] [place] [address] [facility] Hematocrit (Bld) [Volume fraction] 43.0 % Normal 39.0-51.0 [facility] Comment on above: Order Comment: Speci men Type: BLOOD SPECIMENOrdering Facility: [facility] Address: [address] [place] [address] Performed By: #### 5 8410-2 ####[facility] LABCLIA [id number] [place] [address] [facility] Hemoglobin (Bld) [Mass/Vol] 14.5 g/dL Normal 13.0-17.0 [facility] Comment on above: Order Comment: Speci men Type: BLOOD SPECIMENOrdering Facility: [facility] Address: [address] [place] [address] Performed By: #### 5 8410-2 ####[facility] LABCLIA [id number] [place] [address] [place] [facility] MCH (RBC) [Entitic mass] 30.8 pg Normal 26.0-34.0 [facility] Comment on above: Order Comment: Speci men Type: BLOOD SPECIMENOrdering Facility: [facility] Address: [address] [place] [address] Performed By: #### 5 8410-2 ####[facility] LABCLIA [id number] [place] [address] [place] [facility] MCHC (RBC) [Mass/Vol] 33.7 g/dL Normal 30.5-36.0 [facility] Comment on above: Order Comment: Speci men Type: BLOOD SPECIMENOrdering Facility: [facility] Address: [address] [place] [address] Performed By: #### 5 8410-2 ####[facility] LABCLIA [id number] [place] [address] [place] MCV (RBC) [Entitic vol] 91.3 fL Normal 80.0-100.0 [facility] Comment on above: Order Comment: Speci men Type: BLOOD SPECIMENOrdering Facility: [facility] Address: [address] [place] [address] Performed By: #### 5 8410-2 ####[facility] LABCLIA [id number] [place] [address] [place] Platelet mean volume (Bld) [Entitic vol] 9.3 fL Normal 9.0-12.7 [facility] Comment on above: Order Comment: Speci men Type: BLOOD SPECIMENOrdering Facility: [facility] Address: [address] [place] [address] Performed By: #### 5 8410-2 ####[facility] LABCLIA [id number] [place] [address] [place] Platelets (Bld) [#/Vol] 293 10*3/uL Normal 150-400 [facility] Comment on above: Order Comment: Speci men Type: BLOOD SPECIMENOrdering Facility: [facility] Address: [address] [place] [address] Performed By: #### 5 8410-2 ####[facility] LABCLIA [id number] [place] [address] [place] RBC (Bld) [#/Vol] 4.71 10*6/uL Normal 4.20-6.00 [facility] Comment on above: Order Comment: Speci men Type: BLOOD SPECIMENOrdering Facility: [facility] Address: [address] [place] [address] Performed By: #### 5 8410-2 ####[facility] LABCLIA [id number] [place] [address] [facility] WBC (Bld) [#/Vol] 6.89 10*3/uL Normal 3.70-11.00 [facility] Comment on above: Order Comment: Speci men Type: BLOOD SPECIMENOrdering Facility: [facility] Address: [address] [place] [address] Performed By: #### 5 8410-2 ####[facility] LABCLIA [id number] [place] [address] [facility] Cobalamin (Vitamin B12) [Mas s/Vol]on 10-10-2024 Interpretation and review of laboratory results Normal [facility] Comprehensive metabolic 2000 panelon 10-10-2024 Albumin [Mass/Vol] 4.2 g/dL 3.9 - 4.9 g/dL [facility] ALP [Catalytic activity/Vol] 93 U/L 38 - 113 U/L [facility] ALT With P-5'-P [Catalytic activity/Vol] 21 U/L 10 - 54 U/L [facility] Anion gap [Moles/Vol] 10 mmol/L 8 - 15 mmol/L [facility] AST With P-5'-P [Catalytic activity/Vol] 26 U/L 14 - 40 U/L [facility] Bilirubin [Mass/Vol] 0.5 mg/dL 0.2 - 1.3 mg/dL [facility] Calcium [Mass/Vol] 9.5 mg/dL 8.5 - 10. 2 mg/dL [facility] Chloride [Moles/Vol] 102 mmol/L 98 - 107 mmol/L [facility] CO2 [Moles/Vol] 27 mmol/L 22 - 30 mmol/L [facility] Creatinine [Mass/Vol] 1.07 mg/dL 0.73 - 1.22 mg/dL [facility] GFR/1.73 sq M.predicted among non-blacks MDRD (S/P/Bld) [Vol rate/Area] 79 mL/min/{1.73_m2} - PINF [facility] Comment on above: Estimated Glomerular Filtration Rate (eGFR) is calculated using the 2020 CKD-EPI creatinine equation. This equation utilizes serum creatinine, sex, and age as parameters. The creatinine assay has traceable calibration to isotope dilution-mass spectrometry. Refer to KDIGO guidelines for clinical interpretation. In patients with unstable renal function, e.g. those with acute kidney injury, the eGFR may not accurately reflect actual GFR. Glucose [Mass/Vol] 97 mg/dL 74 - 99 mg/dL [facility] Comment on above: The [place] Diabete s Association (ADA) provides guidance for cutoff values for fasting glucose and random glucose. The ADA defines fasting as no caloric intake for at least 8 hours. Fasting plasma glucose results between 100 to 125 mg/dL indicate increased risk for diabetes (prediabetes). Fasting plasma glucose results greater than or equal to 126 mg/dL meet the criteria for diagnosis of diabetes. In the absence of unequivocal hyperglycemia, results should be confirmed by repeat testing. In a patient with classic symptoms of hyperglycemia or hyperglycemic crisis, random plasma glucose results greater than or equal to 200 mg/dL meet the criteria for diagnosis of diabetes. Reference: Standards of Medical Care in Diabetes 2016, [place] Diabetes Association. Diabetes Care. 2016.39(Suppl 1). Potassium [Moles/Vol] 3.9 mmol/L 3.7 - 5.1 mmol/L [facility] Protein [Mass/Vol] 7.7 g/dL 6.3 - 8.0 g/dL [facility] Sodium [Moles/Vol] 139 mmol/L 136 - 144 mmol/L [facility] Urea nitrogen [Mass/Vol] 17 mg/dL 9 - 24 mg/dL [facility] Albumin [Mass/Vol] 4.2 g/dL Normal 3.9-4.9 [facility] Comment on above: Order Comment: Speci men Type: BLOOD SPECIMENOrdering Facility: [facility] Address: [address] [place] [address] Performed By: #### 2 4323-8, 3016-3, 75712-9 ####[facility] LABCLIA [id number] [place] [address] [facility] ALP [Catalytic activity/Vol] 93 U/L Normal 38-113 [facility] Comment on above: Order Comment: Speci men Type: BLOOD SPECIMENOrdering Facility: [facility] Address: [address] [place] [address] Performed By: #### 2 4323-8, 3016-3, 15143-7 ####[facility] LABCLIA [id number] [place] [address] [place] ALT With P-5'-P [Catalytic activity/Vol] 21 U/L Normal 10-54 [facility] Comment on above: Order Comment: Speci men Type: BLOOD SPECIMENOrdering Facility: [facility] Address: [address] [place] [address] Performed By: #### 2 4323-8, 6-3, 88548-7 ####[facility] LABCLIA [id number] [place] [address] [facility] Anion gap [Moles/Vol] 10 mmol/L Normal 8-15 [facility] Comment on above: Order Comment: Speci men Type: BLOOD SPECIMENOrdering Facility: [facility] Address: [address] [place] [address] Performed By: #### 2 4323-8, 3016-3, 60665-2 ####[facility] LABCLIA [id number] [place] [address] [place] AST With P-5'-P [Catalytic activity/Vol] 26 U/L Normal 14-40 [facility] Comment on above: Order Comment: Speci men Type: BLOOD SPECIMENOrdering Facility: [facility] Address: [address] [place] [address] Performed By: #### 2 4323-8, 6-3, 23159-2 ####[facility] LABCLIA [id number] [place] [address] [place] Bilirubin [Mass/Vol] 0.5 mg/dL Normal 0.2-1.3 [facility] Comment on above: Order Comment: Speci men Type: BLOOD SPECIMENOrdering Facility: [facility] Address: [address] [place] [address] Performed By: #### 2 4323-8, 6-3, 12064-6 ####[facility] LABCLIA [id number] [place] [address] [place] Calcium [Mass/Vol] 9.5 mg/dL Normal 8.5-10.2 [facility] Comment on above: Order Comment: Speci men Type: BLOOD SPECIMENOrdering Facility: [facility] Address: [address] [place] [address] Performed By: #### 2 4323-8, 6-3, 77897-2 ####[facility] LABCLIA [id number] [place] [address] [place] Chloride [Moles/Vol] 102 mmol/L Normal 98-107 [facility] Comment on above: Order Comment: Speci men Type: BLOOD SPECIMENOrdering Facility: [facility] Address: [address] [place] [address] Performed By: #### 2 4323-8, 3016-3, 02400-9 ####[facility] LABCLIA [id number] [place] [address] [place] CO2 [Moles/Vol] 27 mmol/L Normal 22-30 [facility] Comment on above: Order Comment: Speci men Type: BLOOD SPECIMENOrdering Facility: [facility] Address: [address] [place] [address] Performed By: #### 2 4323-8, 3015-05, ####[facility] LABCLIA [id number] [place] [address] [place] Creatinine [Mass/Vol] 1.07 mg/dL Normal 0.73-1.22 [facility] Comment on above: Order Comment: Speci men Type: BLOOD SPECIMENOrdering Facility: [facility] Address: [address] [place] [address] Performed By: #### 2 4323-8, 3015-05, ####[facility] LABCLIA [id number] [place] [address] [place] eGFRcr SerPlBld CKD-EPI 2020 79 mL/min/1.73m??? Normal >=60 [facility] Comment on above: Order Comment: Speci men Type: BLOOD SPECIMENOrdering Facility: [facility] Address: [address] [place] [address] Result Comment: Jolie mated Glomerular Filtration Rate (eGFR) is calculated using the 2020 CKD-EPI creatinine equation. This equation utilizes serum creatinine, sex, and age as parameters. The creatinine assay has traceable calibration to isotope dilution-mass spectrometry. Refer to KDIGO guidelines for clinical interpretation. In patients with unstable renal function, e.g. those with acute kidney injury, the eGFR may not accurately reflect actual GFR. Performed By: #### 2 4323-8, 3015-3, ####[facility] LABCLIA [id number] [place] [address] [place] Glucose [Mass/Vol] 97 mg/dL Normal 74-99 [facility] Comment on above: Order Comment: Awilda murphy Type: BLOOD SPECIMENOrdering Facility: [facility] Address: [address] [place] [address] Result Comment: The [place] Diabetes Association (ADA) provides guidance for cutoff values for fasting glucose and random glucose. The ADA defines fasting as no caloric intake for at least 8 hours. Fasting plasma glucose results between 100 to 125 mg/dL indicate increased risk for diabetes (prediabetes). Fasting plasma glucose results greater than or equal to 126 mg/dL meet the criteria for diagnosis of diabetes. In the absence of unequivocal hyperglycemia, results should be confirmed by repeat testing. In a patient with classic symptoms of hyperglycemia or hyperglycemic crisis, random plasma glucose results greater than or equal to 200 mg/dL meet the criteria for diagnosis of diabetes. Reference: Standards of Medical Care in Diabetes 2016, [place] Diabetes Association. Diabetes Care. 2016.39(Suppl 1). Performed By: #### 2 4323-8, 3016-3, 52528-4 ####[facility] LABCLIA [id number] [place] [address] [place] Potassium [Moles/Vol] 3.9 mmol/L Normal 3.7-5.1 [facility] Comment on above: Order Comment: Awilda murphy Type: BLOOD SPECIMENOrdering Facility: [facility] Address: [address] [place] [address] Performed By: #### 2 4323-8, 3016-3, 94971-1 ####[facility] LABCLIA [id number] [place] [address] [place] Protein [Mass/Vol] 7.7 g/dL Normal 6.3-8.0 [facility] Comment on above: Order Comment: Awilda murphy Type: BLOOD SPECIMENOrdering Facility: [facility] Address: [address] [place], [place] [address] Performed By: #### 2 4323-8, 3016-3, 04261-4 ####[facility] LABCLIA [id number] [place] [address] [place] Sodium [Moles/Vol] 139 mmol/L Normal 136-144 [facility] Comment on above: Order Comment: Speci men Type: BLOOD SPECIMENOrdering Facility: [facility] Address: [address] [place] [address] Performed By: #### 2 4323-8, 3016-3, 38128-6 ####[facility] LABCLIA [id number] [place] [address] [facility] Urea nitrogen [Mass/Vol] 17 mg/dL Normal 9-24 [facility] Comment on above: Order Comment: Speci men Type: BLOOD SPECIMENOrdering Facility: [facility] Address: [address] [place] [address] Performed By: #### 2 4323-8, 3016-3, 15788-6 ####[facility] LABCLIA [id number] [place] [address] [facility] Lipid 1996 panelon 5 Cholesterol [Mass/Vol] 184 mg/dL NINF - 200 mg/dL [facility] Comment on above: <200 mg/dL, Desirabl e 200-239 mg/dL, Borderline high >239 mg/dL, High Cholesterol in HDL [Mass/Vol] 42 mg/dL 39 - PINF mg/dL [facility] Comment on above: 40-59 mg/dL, Accepta ble >59 mg/dL, High: Negative risk factor for coronary heart disease <40 mg/dL, Low: Positive risk factor for coronary heart disease Cholesterol in LDL [Mass/Vol] 124 mg/dL High NINF - 100 mg/dL [facility] Comment on above: <100 mg/dL, Optimal 100-129 mg/dL, Near optimal/above optimal 130-159 mg/dL, Borderline high 160-189 mg/dL, High >189 mg/dL, Very high Secondary prevention optimal LDL Cholesterol levels are recommended to be <70 mg/dL LDL cholesterol is calculated using the Mills-NIH equation. Cholesterol in LDL/Cholesterol in HDL [Mass ratio] 2.95 {ratio} High NINF - 2.54 [facility] Comment on above: Reference: 1. National Cholesterol Education Program ATP III Guideline At-A-Glance Quick Desk Reference: National Heart, Lung, and Blood [place]. National Institutes of Health. 2001: NIH Publication No. 01-3305. 2. An International Atherosclerosis Society position paper: global recommendations for the management of dyslipidemia: executive summary, Atherosclerosis. 2014: 232(2):410-413. Cholesterol in VLDL [Mass/Vol] 17 mg/dL NINF - 30 mg/dL [facility] Cholesterol non HDL [Mass/Vol] 142 mg/dL High NINF - 130 mg/dL [facility] Comment on above: <130 mg/dL, Optimal 130-159 mg/dL, Near optimal/above optimal 160-189 mg/dL, Borderline high 190-219 mg/dL, High >219 mg/dL, Very high Secondary prevention optimal non HDL Cholesterol levels are recommended to be <100 mg/dL Cholesterol.total/ Cholesterol in HDL [Mass ratio] 4.38 {ratio} NINF - 5.10 [facility] Fasting Time 12 hrs [facility] Interpretation and review of laboratory results Abnormal [facility] Triglyceride [Mass/Vol] 96 mg/dL NINF - 150 mg/dL [facility] Comment on above: <150 mg/dL, Normal 150-199 mg/dL, Borderline high 200-499 mg/dL, High >499 mg/dL, Very high Cholesterol [Mass/Vol] 184 mg/dL Normal <200 [facility] Comment on above: Order Comment: Awilda murphy Type: BLOOD SPECIMENOrdering Facility: [facility] Address: [address] [place] [address] Result Comment: <200 mg/dL, Desirable 200-239 mg/dL, Borderline high >239 mg/dL, High Performed By: #### 2 4323-8, 3016-3, 57109-5 ####[facility] LABCLIA [id number] [place] [address] [facility] Cholesterol in HDL [Mass/Vol] 42 mg/dL Normal >39 [facility] Comment on above: Order Comment: Awilda murphy Type: BLOOD SPECIMENOrdering Facility: [facility] Address: [address] [place] [address] Result Comment: 40-5 9 mg/dL, Acceptable >59 mg/dL, High: Negative risk factor for coronary heart disease <40 mg/dL, Low: Positive risk factor for coronary heart disease Performed By: #### 2 4323-8, 6-3, 50772-0 ####[facility] LABCLIA [id number] [place] [address] [facility] Cholesterol in LDL [Mass/Vol] 124 mg/dL High <100 [facility] Comment on above: Order Comment: Speci men Type: BLOOD SPECIMENOrdering Facility: [facility] Address: [address] [place] [address] Result Comment: <100 mg/dL, Optimal 100-129 mg/dL, Near optimal/above optimal 130-159 mg/dL, Borderline high 160-189 mg/dL, High >189 mg/dL, Very high Secondary prevention optimal LDL Cholesterol levels are recommended to be <70 mg/dL LDL cholesterol is calculated using the Mills-NIH equation. Performed By: #### 2 4323-8, 3015-3, 49958-5 ####[facility] Strikingly LABIA [id number] [place] [address] [facility] Cholesterol in LDL/Cholesterol in HDL [Mass ratio] 2.95 {ratio} High <2.54 [facility] Comment on above: Order Comment: Speci men Type: BLOOD SPECIMENOrdering Facility: [facility] Address: [address] [place] [address] Result Comment: Liana owens: 1. National Cholesterol Education Program ATP III Guideline At-A-Glance Quick Desk Reference: National Heart, Lung, and Blood [place]. National Institutes of Health. 2001: NIH Publication No. 01-3305. 2. An International Atherosclerosis Society position paper: global recommendations for the management of dyslipidemia: executive summary, Atherosclerosis. 2014: 232(2):410-413. Performed By: #### 2 4323-8, 6-3, 22128-5 ####[facility] StrikinglyI LABCLIA [id number] [place] [address] [place] [facility] Cholesterol in VLDL [Mass/Vol] 17 mg/dL Normal <30 [facility] Comment on above: Order Comment: Speci men Type: BLOOD SPECIMENOrdering Facility: [facility] Address: [address] [place] [address] Performed By: #### 2 4323-8, 3015-3, 08535-2 ####[facility] LABCLIA [id number] [place] [address] [facility] Cholesterol non HDL [Mass/Vol] 142 mg/dL High <130 [facility] Comment on above: Order Comment: Speci men Type: BLOOD SPECIMENOrdering Facility: [facility] Address: [address] [place] [address] Result Comment: <130 mg/dL, Optimal 130-159 mg/dL, Near optimal/above optimal 160-189 mg/dL, Borderline high 190-219 mg/dL, High >219 mg/dL, Very high Secondary prevention optimal non HDL Cholesterol levels are recommended to be <100 mg/dL Performed By: #### 2 4323-8, 3015-3, 17494-1 ####[facility] LABCLIA [id number] [place] [address] [facility] Cholesterol.total/ Cholesterol in HDL [Mass ratio] 4.38 {ratio} Normal <5.10 [facility] Comment on above: Order Comment: Speci men Type: BLOOD SPECIMENOrdering Facility: [facility] Address: [address] [place] [address] Performed By: #### 2 4323-8, 3, 77927-9 ####[facility] LABCLIA [id number] [place] [address] [facility] FASTING TIME 12 hrs Normal [facility] Comment on above: Order Comment: Speci men Type: BLOOD SPECIMENOrdering Facility: [facility] Address: [address] [place] [address] Performed By: #### 2 4323-8, 3015-3, 69850-2 ####[facility] LABCLIA [id number] [place] [address] [facility] Triglyceride [Mass/Vol] 96 mg/dL Normal <150 [facility] Comment on above: Order Comment: Speci men Type: BLOOD SPECIMENOrdering Facility: [facility] Address: [address] [place] [address] Result Comment: <150 mg/dL, Normal 150-199 mg/dL, Borderline high 200-499 mg/dL, High >499 mg/dL, Very high Performed By: #### 2 4323-8, 3016-3, 08893-5 ####[facility] LABCLIA [id number] [place] [address] [place] No Panel Informationon 10-10 Interpretation and review of laboratory results Normal [facility] PSA/PROSTATE SPECIFIC ANTIGE N SCREENINGon 10-10-2024 Interpretation and review of laboratory results Normal [facility] Prostate specific Ag [Mass/Vol] 1.51 ng/mL NINF - 2.60 ng/mL [facility] Comment on above: Total PSA test metho dology used is the Electrochemiluminescence Immunoassay by [employer]. Total PSA values by differing methodologies cannot be interchanged. [facility] Prostate specific Ag [Mass/Vol] 1.51 ng/mL Normal <2.60 [facility] Comment on above: Order Comment: Speci men Type: BLOOD SPECIMENOrdering Facility: [facility] Address: [address] [place] [address] Result Comment: Tota l PSA test methodology used is the Electrochemiluminescence Immunoassay by [employer]. Total PSA values by differing methodologies cannot be interchanged. Performed By: #### P SAS1 ####[facility] LABORATORYCLIA [id number] OF [place] THYROID STIMULATING HORMONEo n 10-10-2024 TSH Qn 1.630 m[IU]/L [facility] TSH SerPl-aCncon 10-10-2024 TSH Qn 1.630 m[IU]/L Normal 0.270-4.200 [facility] Comment on above: Order Comment: Speci men Type: BLOOD SPECIMENOrdering Facility: [facility] Address: [address] [place] [address] Performed By: #### 2 4323-8, 6-3, 64101-1 ####[facility] LABCLIA [id number] [place] [address] [place] VITAMIN B12on 10-10-2024 Cobalamin (Vitamin B12) [Mass/Vol] 891 pg/mL 232 - 1245 pg/mL [facility] Vit B12 SerPl-mCncon 025 Cobalamin (Vitamin B12) [Mass/Vol] 891 pg/mL Normal 232-1245 [facility] Comment on above: Order Comment: Speci men Type: BLOOD SPECIMENOrdering Facility: [facility] Address: [facility] [place] [address] Performed By: #### 2 132-9 ####[facility] LABORATORYCLIA [id number] [place] [address] [place] [facility] CNOVon 10-06-2024 CNOV Office Visit (HILARIA LONGO) -- ALIX WOODY ([id number]) 1965 M Date Time Provider Department 10/06/24 9:20 AM NAVYA RODRÍGUEZ During your visit today, we recorded the following information about you: Temperature Pulse Respiration Blood pressure 99.2 degrees 77/minute 16/minute 132/70 Weight Height 99.8 kg 1.803 m Navya Rodríguez DO 10/28/2024 1:47 PM Signed Subjective Sonu Arroyo Annalise is a 58-year-old male with a history of left shoulder labral tear and cyst formation, presenting for worsening left upper extremity numbness and tingling. Left Upper Extremity Paresthesia: - Chronic numbness and tingling in the left upper extremity, worsening as Prednisone taper progresses. - Currently on 1 mg Prednisone daily, prescribed by area captain. - EMG performed a year ago showed no abnormalities. - History of left shoulder labral tear and cyst formation in 2017, with similar symptoms. - Previous surgery by Dr. Marin Ibrahim at [facility] in [place]. - Denies numbness or tingling in the right upper extremity. Left Shoulder Pain: - Chronic pain in the left shoulder, with limited ROM. - Unable to lift any weight above shoulder level. - No current medication for shoulder pain. HPI ALLERGIES Allergen Reactions Med-Hist Hives Hay Pollens Extract Other: See Comments Vancomycin Rash Current Outpatient Medications Medication Sig Dispense Refill predniSONE (DELTASONE) 1 mg tablet Take 1 mg by mouth once daily. sertraline (ZOLOFT) 50 mg tablet take 1 tablet by mouth once daily. 30 tablet 2 SUMAtriptan (IMITREX) 100 mg tablet TAKE 1 TABLET BY MOUTH AT THE ONSET OF A HEADACHE. MAY REPEAT IN 2 (TWO) HOURS IF HEADACHE PERSISTS. MAXIMUM DAILY DOSE 2 (TWO) TABLETS EVERY 24 HOURS 10 tablet 1 traZODone (DESYREL) 150 mg tablet Take 1 tablet by mouth daily at bedtime. 30 tablet 11 morphine SR (MS CONTIN, ORAMORPH SR) 15 mg 12 hr tablet TAKE 1 TABLET BY MOUTH TWICE DAILY for up to 28 days traMADol (ULTRAM) 50 mg tablet Take 50 mg by mouth three times a day. tid predniSONE (DELTASONE) 5 mg tablet Take 5 mg by mouth once daily. (Patient not taking: Reported on 10/06/2024) zoster vaccine, recombinant, adjuvanted, (SHINGRIX) 50 mcg/0.5 mL injection Repeat 2nd dose in 2-6 months. 1 Each 0 No current facility-administered medications for this visit. ACTIVE PROBLEM LIST Depressive Disorder Moderate Persistent Asthma Without Complication ([facility]) Chronic Midline Low Back Pain With Bilateral Sciatica Chronic Insomnia Acute Pain of Left Shoulder Obesity, Class I, Bmi 30-34.9 Hyperlipidemia, Mixed Migraine Without Aura and Without Status Migrainosus, Not Intractable Bmi 31.0-31.9,Adult History of Covid-19 Trigger Finger, Right Middle Finger Chronic Pain of Both Shoulders Left Ankle Tendonitis Elevated Blood Pressure Reading Without Diagnosis of Hypertension Pmr (Polymyalgia Rheumatica) ([facility]) Social History Tobacco Use Smoking status: Never Smokeless tobacco: Never Tobacco comments: Tobacco no use; Vaping Use Vaping status: Never Used Substance Use Topics Alcohol use: Never Comment: no reported history Drug use: Never Family History Problem Relation Age of Onset other (aortic aneurysm rupture) Paternal Grandfather Asthma Mother Ischemic Heart Disease Father other (Heart disease) Father Prostate Cancer Maternal Grandfather Reviewed past medical history, family history and surgeries. All medications and supplements were reviewed with the patient. Review of Systems Constitutional: Negative for activity change, appetite change and unexpected weight change. Respiratory: Negative for chest tightness and shortness of breath. Cardiovascular: Negative for chest pain. Gastrointestinal: Negative for abdominal pain. Genitourinary: Negative for difficulty urinating. Musculoskeletal: Positive for arthralgias. Neurological: Positive for weakness and numbness. Objective BP 152/84 Pulse 77 Temp 37.3 ?C (99.2 ?F) Resp 16 Ht 180.3 cm (5' 11) Wt 99.8 kg (220 lb) SpO2 95% BMI 30.68 kg/m? Physical Exam Constitutional: Appearance: Normal appearance. HENT: Mouth/Throat: Dentition: Normal dentition. Eyes: General: Lids are normal. Conjunctiva/sclera: Conjunctivae normal. Pupils: Pupils are equal, round, and reactive to light. Neck: Thyroid: No thyroid mass or thyromegaly. Vascular: No carotid bruit. Trachea: Phonation normal. Cardiovascular: Rate and Rhythm: Normal rate and regular rhythm. Heart sounds: Normal heart sounds. No murmur heard. No friction rub. No gallop. Pulmonary: Effort: Pulmonary effort is normal. Breath sounds: Normal breath sounds. No wheezing or rales. Abdominal: General: Bowel sounds are normal. There is no distension. Palpations: Abdomen is soft. There is no mass. Tenderness: There is no abdom (more content not included)... Normal [facility] Telephone Encounteron 2024 Internet Developer Authentication Interface Message Text Left voicemail to callback for scheduling Normal [employer] Internet Developer Authentication Interface Message Text Repeat prednisone being filled however patient has not had regular labs done as requested Replacing labs and requesting ESR/CRP monthly while on prednisone and 1-month after completion as well Normal [employer] [facility] ([id number]) 1965 M Date Time Provider Department 09/05/24 NAVYA RODRÍGUEZ During your visit today, we recorded the following information about you: Atul Katz MA 09/05/2024 11:10 AM Signed Central scheduling hospitality house supervisor called stating patient is having numbness starting at his shoulders and going down his arms. We were able to get patient scheduled for 09/17/24 with Fior Brown CNP. Did you want patient to do anything else prior. Please advise. JORGE Ramon Kimberly C, DO 09/05/2024 11:23 AM Signed He needs to go to ED DO Shaka Don Mary, MA 09/05/2024 11:59 AM Signed Patients notified. Also lm on pt . Vm with all information. Elisabet Sellers MA Allergies As of Date: 09/05/2024 Noted Allergy Reaction MED-HIST 10/20/2015 4 - Hives Comments: Hay POLLENS EXTRACT 11/27/2014 14 - Other: See Comments VANCOMYCIN 10/20/2015 2 - Rash Date Reviewed: 07/02/2024 Reviewed by: Navya Rodríguez DO - Fully Assessed Reason for Visit: Patient Update [1234] Prescriptions as of 09/05/2024 - sertraline (ZOLOFT) 50 mg tablet take 1 tablet by mouth once daily. - SUMAtriptan (IMITREX) 100 mg tablet TAKE 1 TABLET BY MOUTH AT THE ONSET OF A HEADACHE. MAY REPEAT IN 2 (TWO) HOURS IF HEADACHE PERSISTS. MAXIMUM DAILY DOSE 2 (TWO) TABLETS EVERY 24 HOURS - predniSONE (DELTASONE) 5 mg tablet Take 5 mg by mouth once daily. - traZODone (DESYREL) 150 mg tablet Take 1 tablet by mouth daily at bedtime. - zoster vaccine, recombinant, adjuvanted, (SHINGRIX) 50 mcg/0.5 mL injection Repeat 2nd dose in 2-6 months. - morphine SR (MS CONTIN, ORAMORPH SR) 15 mg 12 hr tablet TAKE 1 TABLET BY MOUTH TWICE DAILY for up to 28 days - traMADol (ULTRAM) 50 mg tablet Take 50 mg by mouth three times a day. tid Problem List As Of Date 09/05/2024 Noted Resolved Thoracic or lumbosacral neuritis or radiculitis* 11/19/2015 Tibial plateau fracture [S82.143A] 01/07/2015 11/19/2015 Depressive disorder [F32.A] Moderate persistent asthma without complication*11/19/2015 Chronic midline low back pain [M54.50, G89.29] 11/19/2015 05/26/2016 Chronic midline low back pain with bilateral sc*05/26/2016 Primary insomnia [F51.01] 10/13/2016 03/23/2017 Chronic insomnia [F51.04] 03/23/2017 Rash [R21] 03/23/2017 06/22/2017 Acute pain of left shoulder [M25.512] 06/22/2017 Obesity, Class I, BMI 30-34.9 [E66.811] 06/22/2017 Hyperlipidemia, mixed [E78.2] 06/22/2017 Migraine without aura and without status migrai*05/03/2018 BMI 31.0-31.9,adult [Z68.31] 04/21/2019 History of COVID-19 [Z86.16] 05/20/2021 Trigger finger, right middle finger [M65.331] 09/22/2022 Chronic pain of both shoulders [M25.511, G89.29*08/21/2023 Left ankle tendonitis [M77.52] 08/21/2023 Elevated blood pressure reading without diagnos*08/21/2023 PMR (polymyalgia rheumatica) ([facility]) [M35.3] 12/25/2023 Encounter Status:Closed by ELISABET SELLERS on 09/05/24 [facility] K[facility]on 07-02-2024 [facility] Office Visit (HILARIA LONGO) -- ALIX WOODY ([id number]) 1965 M Date Time Provider Department 07/02/24 9:00 AM NAVYA RODRÍGUEZ During your visit today, we recorded the following information about you: Temperature Pulse Respiration Blood pressure 98.1 degrees 77/minute 18/minute 122/74 Weight Height 99.8 kg 1.803 m Navya RodríguezDO 07/02/2024 4:25 PM Signed Subjective The history is provided by the patient. Pt is here for f/u for insomnia and depression. He is taking trazodone 150 mg at bedtime, and sertraline 50 mg daily, and they are working well. He had pain in his left shoulder, thought to be a pinched nerve The pain has gone away He was having trouble urinating, getting up several times through the night, and was not able to completely empty his bladder ALLERGIES Allergen Reactions Med-Hist Hives Hay Pollens Extract Other: See Comments Vancomycin Rash Current Outpatient Medications Medication Sig Dispense Refill predniSONE (DELTASONE) 5 mg tablet Take 5 mg by mouth once daily. sertraline (ZOLOFT) 50 mg tablet take 1 tablet by mouth once daily. 30 tablet 2 SUMAtriptan (IMITREX) 100 mg tablet take 1 tablet by mouth AT ONSET OF HEADACHE may repeat in 2 hours IF headache PERSISTS maximum daily dose of 2 tablets (200 milligrams) every 24 hours 10 tablet 1 traZODone (DESYREL) 150 mg tablet Take 1 tablet by mouth daily at bedtime. 30 tablet 11 zoster vaccine, recombinant, adjuvanted, (SHINGRIX) 50 mcg/0.5 mL injection Repeat 2nd dose in 2-6 months. 1 Each 0 morphine SR (MS CONTIN, ORAMORPH SR) 15 mg 12 hr tablet TAKE 1 TABLET BY MOUTH TWICE DAILY for up to 28 days traMADol (ULTRAM) 50 mg tablet Take 50 mg by mouth three times a day. tid No current facility-administered medications for this visit. ACTIVE PROBLEM LIST Depressive Disorder Moderate Persistent Asthma Without Complication ([facility]) Chronic Midline Low Back Pain With Bilateral Sciatica Chronic Insomnia Acute Pain of Left Shoulder Obesity, Class I, Bmi 30-34.9 Hyperlipidemia, Mixed Migraine Without Aura and Without Status Migrainosus, Not Intractable Bmi 31.0-31.9,Adult History of Covid-19 Trigger Finger, Right Middle Finger Chronic Pain of Both Shoulders Left Ankle Tendonitis Elevated Blood Pressure Reading Without Diagnosis of Hypertension Pmr (Polymyalgia Rheumatica) ([facility]) Social History Tobacco Use Smoking status: Never Smokeless tobacco: Never Tobacco comments: Tobacco no use; Vaping Use Vaping status: Never Used Substance Use Topics Alcohol use: Never Comment: no reported history Drug use: Never Family History Problem Relation Age of Onset other (aortic aneurysm rupture) Paternal Grandfather Asthma Mother Ischemic Heart Disease Father other (Heart disease) Father Prostate Cancer Maternal Grandfather Reviewed past medical history, family history and surgeries. All medications and supplements were reviewed with the patient. Review of Systems Constitutional: Negative for chills, diaphoresis, fever and weight loss. HENT: Negative for ear pain and hearing loss. Eyes: Negative for double vision. Respiratory: Negative for cough. Cardiovascular: Negative for leg swelling. Gastrointestinal: Negative for constipation, diarrhea and heartburn. Genitourinary: Negative for dysuria and frequency. Musculoskeletal: Negative for back pain, falls, joint pain and myalgias. Skin: Negative for itching and rash. Neurological: Negative for dizziness and weakness. Endo/Heme/Allergies: Does not bruise/bleed easily. Psychiatric/Behavioral: Negative for depression and substance abuse. The patient does not have insomnia. Objective BP 122/74 Pulse 77 Temp 36.7 ?C (98.1 ?F) (Oral) Resp 18 Ht 180.3 cm (5' 11) Wt 99.8 kg (220 lb) SpO2 96% BMI 30.68 kg/m? Physical Exam Constitutional: Appearance: Normal appearance. He is obese. HENT: Head: Normocephalic and atraumatic. Nose: Nose normal. Mouth/Throat: Mouth: Mucous membranes are moist. Dentition: Normal dentition. Eyes: General: Lids are normal. Extraocular Movements: Extraocular movements intact. Conjunctiva/sclera: Conjunctivae normal. Pupils: Pupils are equal, round, and reactive to light. Neck: Thyroid: No thyroid mass or thyromegaly. Vascular: No carotid bruit. Trachea: Phonation normal. Cardiovascular: Rate and Rhythm: Normal rate and regular rhythm. Heart sounds: Normal heart sounds. No murmur heard. No friction rub. No gallop. Pulmonary: Effort: Pulmonary effort is normal. Breath sounds: Normal breath sounds. No wheezing or rales. Abdominal: General: Bowel sounds are normal. There is no distension. Palpations: Abdomen is soft. There is no mass. Tenderness: There is no abdominal tenderness. Musculoskeletal: General: No swelling or tenderness. Normal range of motio (more content not included)... Normal [facility] CNPNon 02-19-2024 CNPN Telephone (JESSELUMAFERNANDA) -- ALIX WOODY ([id number]) 1965 M Date Time Provider Department 02/19/24 NAVYA RODRÍGUEZ During your visit today, we recorded the following information about you: Eleanor Bacon MA 02/19/2024 2:23 PM Signed Naida from [facility] called she was informed by patient that he is currently weaning off his chronic prednisone. For the procedure he is getting done they give them prednisone so she was wondering what they could do in place JORGE Gonsalves Kimberly C, DO 02/19/2024 2:25 PM Signed Please find out from Naida how the prednisone they give is prescribed or given ie what dosage, how many days, etc. Thanks DO Shaka Don Mary, MA 02/19/2024 3:06 PM Signed Patient is on 10mg every of prednisone everyday per naida at [facility]. She states he was on 20mg , but has been tapering down. JORGE Rodriguez Kimberly C, DO 02/19/2024 3:46 PM Signed I called and spoke to Naida. He is on steroids for PMR, is tapering off steroids and will be on 9 mg of steroids by the time of his surgery. They typically give dexamethasone 10 mg one day before, day of and 2 days after. We discussed that the patient double his dose on the day of surgery, and then resume tapering on the day after surgery. Naida will call him with the instructions. Navya Rodríguez DO Allergies As of Date: 02/19/2024 Noted Allergy Reaction MED-HIST 10/20/2015 4 - Hives Comments: Hay POLLENS EXTRACT 11/27/2014 14 - Other: See Comments VANCOMYCIN 10/20/2015 2 - Rash Date Reviewed: 11/23/2023 Reviewed by: Navya Rodríguez DO - Fully Assessed Reason for Visit: Medication Problem [65] Prescriptions as of 02/19/2024 - SUMAtriptan (IMITREX) 100 mg tablet take 1 tablet by mouth AT ONSET OF HEADACHE may repeat in 2 hours IF headache PERSISTS maximum daily dose of 2 tablets (200 milligrams) every 24 hours - sertraline (ZOLOFT) 50 mg tablet take 1 tablet by mouth once daily. - predniSONE (DELTASONE) 20 mg tablet Take 1 tablet by mouth once daily. - traZODone (DESYREL) 150 mg tablet Take 1 tablet by mouth daily at bedtime. - zoster vaccine, recombinant, adjuvanted, (SHINGRIX) 50 mcg/0.5 mL injection Repeat 2nd dose in 2-6 months. - morphine SR (MS CONTIN, ORAMORPH SR) 15 mg 12 hr tablet TAKE 1 TABLET BY MOUTH TWICE DAILY for up to 28 days - traMADol (ULTRAM) 50 mg tablet Take 50 mg by mouth three times a day. tid Problem List As Of Date 02/19/2024 Noted Resolved Thoracic or lumbosacral neuritis or radiculitis* 11/19/2015 Tibial plateau fracture [S82.143A] 01/07/2015 11/19/2015 Depressive disorder [F32.A] Moderate persistent asthma without complication*11/19/2015 Chronic midline low back pain [M54.50, G89.29] 11/19/2015 05/26/2016 Chronic midline low back pain with bilateral sc*05/26/2016 Primary insomnia [F51.01] 10/13/2016 03/23/2017 Chronic insomnia [F51.04] 03/23/2017 Rash [R21] 03/23/2017 06/22/2017 Acute pain of left shoulder [M25.512] 06/22/2017 Obesity, Class I, BMI 30-34.9 [E66.811] 06/22/2017 Hyperlipidemia, mixed [E78.2] 06/22/2017 Migraine without aura and without status migrai*05/03/2018 BMI 31.0-31.9,adult [Z68.31] 04/21/2019 History of COVID-19 [Z86.16] 05/20/2021 Trigger finger, right middle finger [M65.331] 09/22/2022 Chronic pain of both shoulders [M25.511, G89.29*08/21/2023 Left ankle tendonitis [M77.52] 08/21/2023 Elevated blood pressure reading without diagnos*08/21/2023 PMR (polymyalgia rheumatica) ([facility]) [M35.3] 12/25/2023 Encounter Status:Closed by ELEANOR BACON on 02/19/24 Normal [facility] CNPNon 01-30-2024 CNPN Telephone (AGFAMPLE) -- ALIX WOODY ([id number]) 1965 Date Time Provider Department 01/30/24 NAVYA RODRÍGUEZFERNANDA During your visit today, we recorded the following information about you: Atul Katz MA 01/30/2024 12:12 PM Signed [facility] Clearance to have all remaining upper and lower teeth removed with immediate implant placement, requires IV sedation placed in Dr. Rodríguez green folder to be filled out and signed. JORGE Ramon Mary, MA 02/11/2024 2:24 PM Signed Second call. Please advise. Navya Rodríguez DO 02/11/2024 4:38 PM Signed Pt needs appt for surgical clearance DO Anibal Don Janie, MA 02/11/2024 5:21 PM Signed Patient has appointment 02/20 with Charleen Maravilla CNP for surgery clearance. JORGE Ramon Kimberly C, DO 03/13/2024 5:23 PM Signed Pt was not seen on 02/20, please have him make appt for surgical clearance DO Anibal Don Janie, MA 03/14/2024 2:54 PM Signed Tiffany Rowe You; Navya Rodríguez DOJust now (2:53 PM) Pt states he already had the dental procedure done and no longer needs clearance. Dental surgery was done in Feb. Allergies As of Date: 01/30/2024 Noted Allergy Reaction MED-HIST 10/20/2015 4 - Hives Comments: Hay POLLENS EXTRACT 11/27/2014 14 - Other: See Comments VANCOMYCIN 10/20/2015 2 - Rash Date Reviewed: 11/23/2023 Reviewed by: Navya Rodríguez DO - Fully Assessed Reason for Visit: Forms [913] Cmt: [facility] Clear[facility] to have all remaining upper and lower teeth removed with immediate implant placement, requires IV sedation Prescriptions as of 03/14/2024 - SUMAtriptan (IMITREX) 100 mg tablet take 1 tablet by mouth AT ONSET OF HEADACHE may repeat in 2 hours IF headache PERSISTS maximum daily dose of 2 tablets (200 milligrams) every 24 hours - sertraline (ZOLOFT) 50 mg tablet take 1 tablet by mouth once daily. - predniSONE (DELTASONE) 20 mg tablet Take 1 tablet by mouth once daily. - traZODone (DESYREL) 150 mg tablet Take 1 tablet by mouth daily at bedtime. - zoster vaccine, recombinant, adjuvanted, (SHINGRIX) 50 mcg/0.5 mL injection Repeat 2nd dose in 2-6 months. - morphine SR (MS CONTIN, ORAMORPH SR) 15 mg 12 hr tablet TAKE 1 TABLET BY MOUTH TWICE DAILY for up to 28 days - traMADol (ULTRAM) 50 mg tablet Take 50 mg by mouth three times a day. tid Problem List As Of Date 01/30/2024 Noted Resolved Thoracic or lumbosacral neuritis or radiculitis* 11/19/2015 Tibial plateau fracture [S82.143A] 01/07/2015 11/19/2015 Depressive disorder [F32.A] Moderate persistent asthma without complication*11/19/2015 Chronic midline low back pain [M54.50, G89.29] 11/19/2015 05/26/2016 Chronic midline low back pain with bilateral sc*05/26/2016 Primary insomnia [F51.01] 10/13/2016 03/23/2017 Chronic insomnia [F51.04] 03/23/2017 Rash [R21] 03/23/2017 06/22/2017 Acute pain of left shoulder [M25.512] 06/22/2017 Obesity, Class I, BMI 30-34.9 [E66.811] 06/22/2017 Hyperlipidemia, mixed [E78.2] 06/22/2017 Migraine without aura and without status migrai*05/03/2018 BMI 31.0-31.9,adult [Z68.31] 04/21/2019 History of COVID-19 [Z86.16] 05/20/2021 Trigger finger, right middle finger [M65.331] 09/22/2022 Chronic pain of both shoulders [M25.511, G89.29*08/21/2023 Left ankle tendonitis [M77.52] 08/21/2023 Elevated blood pressure reading without diagnos*08/21/2023 PMR (polymyalgia rheumatica) (HCC) [M35.3] 12/25/2023 Encounter Status:Closed by ATUL KATZ on 02/25/24 Normal [facility] BASIC METABOLIC PANELon 10-2 Anion gap [Moles/Vol] 13 mmol/L Normal 10-20 [facility] Comment on above: Performed By: #### Cruz Rod8, MG #### [facility] [address] [place] [address], Calcium [Mass/Vol] 9.3 mg/dL Normal 8.6-10.3 [facility] Comment on above: Performed By: #### Cruz H8, MG #### [facility] [address] [place] [address], Chloride [Moles/Vol] 101 mmol/L Normal 98-107 [facility] Comment on above: Performed By: #### Cruz H8, MG #### [facility] [address] [place] [address], CO2 [Moles/Vol] 28 mmol/L Normal 21-31 [facility] Comment on above: Performed By: #### Cruz H8, MG #### [facility] [address] [place] [address], Creatinine [Mass/Vol] 0.98 mg/dL Normal 0.70-1.30 [facility] Comment on above: Performed By: #### Cruz H8, MG #### [facility] [address] [place] [address], ESTIMATED GFR (CKD-EPI) 88 mL/min/1.73sqm Normal >=60 [facility] Comment on above: Result Comment: 2020 CKD EPI Equation using Creatinine without Race Comment: Estimated glomerular filtration rate (eGFR) is calculated without a race coefficient. Values should be interpreted in the context of the patient's full clinical presentation. Reference: 1. Rome C, Kristine M, Tootie ORR, et al.. A Unifying Approach for GFR Estimation: Recommendations of the NKF-ASN Task Force on Reassessing the Inclusion of Race in Diagnosing Kidney Disease. [place] Journal of Kidney Diseases 2021;79(2):268-88.e1. 2. N Engl J Med 2020 Vol. 385 Issue 19 Pages 4061-2338 Performed By: #### Cruz H8, MG #### [facility] [address] [place] [address], Glucose [Mass/Vol] 84 mg/dL Normal 74-109 [facility] Comment on above: Performed By: #### Cruz H8, MG #### [facility] [address] [place] [address], Potassium [Moles/Vol] 4.3 mmol/L Normal 3.5-5.0 [facility] Comment on above: Performed By: #### Cruz H8, MG #### [facility] [address] [place] [address], Sodium [Moles/Vol] 138 mmol/L Normal 136-145 [facility] Comment on above: Performed By: #### C H8, MG #### [facility] [address] [place] [address], Urea nitrogen [Mass/Vol] 33 mg/dL High 7-25 [facility] Comment on above: Performed By: #### C H8, MG #### [facility] [address] [place] [address], Basic metabolic 2000 panelon 12-31-2023 Anion gap [Moles/Vol] 13 mmol/L 10 - 20 [facility] Calcium [Mass/Vol] 9.3 mg/dL 8.6 - 10. 3 mg/dL [facility] Chloride [Moles/Vol] 101 mmol/L 98 - 107 mmol/L [facility] CO2 [Moles/Vol] 28 mmol/L 21 - 31 mmol/L [facility] Creatinine [Mass/Vol] 0.98 mg/dL 0.70 - 1.30 mg/dL [facility] GFR/1.73 sq M.predicted CKD-EPI (S/P/Bld) [Vol rate/Area] 88 - PINF [facility] Comment on above: 2020 CKD EPI Equatio n using Creatinine without Race Comment: Estimated glomerular filtration rate (eGFR) is calculated without a race coefficient. Values should be interpreted in the context of the patient's full clinical presentation. Reference: 1. Rome C, Kristine M, Tootie DC, et al.. A Unifying Approach for GFR Estimation: Recommendations of the NKF-ASN Task Force on Reassessing the Inclusion of Race in Diagnosing Kidney Disease. [place] Journal of Kidney Diseases 202;79(2):268-88.e1. 2. N Engl J Med 2020 Vol. 385 Issue 19 Pages 4964-8506 Glucose [Mass/Vol] 84 mg/dL 74 - 109 mg/dL [facility] Interpretation and review of laboratory results Abnormal [facility] Potassium [Moles/Vol] 4.3 mmol/L 3.5 - 5.0 mmol/L [facility] Sodium [Moles/Vol] 138 mmol/L 136 - 145 mmol/L [facility] Urea nitrogen [Mass/Vol] 33 mg/dL High 7 - 25 mg/dL [facility] C-REACTIVE PROTEINon 024 CRP [Mass/Vol] mg/dL NINF - 0.5 mg/dL [facility] CRP [Mass/Vol] mg/L Normal <0.5 [facility] Comment on above: Performed By: #### C RP #### [facility] [address] [place] [address], [phone] ERYTHROCYTE SEDIMENTATION RA Annelise 12-31-2023 ESR (Bld) [Velocity] 26 mm/h High [facility] Interpretation and review of laboratory results Abnormal [facility] ESR (Bld) [Velocity] 26 mm/h High <=20 [facility] [place] Comment on above: Performed By: #### E SR #### [facility] [address] [place], [place], MAGNESIUMon 12-31-2023 Magnesium [Mass/Vol] 2.2 mg/dL 1.9 - 2.7 mg/dL [facility] Magnesium [Mass/Vol] 2.2 mg/dL Normal 1.9-2.7 [facility] Comment on above: Performed By: #### C H8, MG #### [facility] [address] [place], [place], No Panel Informationon 12-30 Interpretation and review of laboratory results Normal [facility] Patient Instructionson 12-30 Internet Developer Authentication Interface Message Text It was a pleasure to see you today! Please continue taking your medications as advised: Start 15 mg prednisone (10 mg in morning, 5 mg in evening) Taper to 12.5 mg in 1-month Remember to have your labs drawn I look forward to seeing you at your next appointment. If you have any questions or concerns in the meantime, don't hesitate to reach out. Normal [facility] Progress Noteson 12-31-2023 Internet Developer Authentication Interface Message Text Rheumatology Follow-Up Note Alix Woody is a 58 year old year old male presents to the Rheumatology clinic for follow-up of: Recall: - Est care 11/2023: concern for b/L shoulder + hip stiffness + pain x4-6 months, improved with pred but relapsed? Concern for PMR, re-initiated steroids for monitoring. Elev ESR + CRP Presenting complaint(s): Polymyalgia rheumatica Re-initiated Prednisone taper at 20-mg and have been coming down by 2.5 mg every 4-weeks Since November, has been feeling much better in regards to stiffness and pain, almost at 0/10. He does however note 2-3 days out of the week where his symptoms increase to mild bilateral shoulder pain and stiffness which lasts for a few hours before resolving. Denies any issues at his hips. He is however noticing increased muscle cramps initiated a few weeks ago, across lower extremities, and thighs. Worse at night, and improve with hydration or eating bananas, Denies similar symptoms in upper extremities. Recent labs with normal potassium. Denies headaches, vision changes, jaw claudication. Strength preserved on exam. 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 Review of Systems: All 10 systems were reviewed completely. Pertinent positives are in HPI above. Physical Examination: Vitals: 12/31/23 1037 BP: 161/81 Pulse: 90 Temp: 98.5 ???F (36.9 ???C) General: no acute distress Eyes: no photophobia, sclerae without injunction or icterus Respiratory: Nonlabored breathing Cardiovascular: No cyanosis Skin: warm and dry, without rashes or lesions Joint Examination: Neck: Full ROM without pain. . Shoulders: Full ROM without pain, No swelling, warmth or tenderness. . Elbows: Full ROM without pain, No swelling, warmth or tenderness. . Wrists: Full ROM without pain, No swelling, warmth or tenderness. . Hands: Full ROM without pain, No swelling, warmth or tenderness. . Knees: Full ROM without pain, No swelling, warmth or point tenderness. . Ankles: Full ROM, No swelling, warmth or tenderness. . LABS: BMP (last 1 year, up to 8 values) 10/24/2023 12:12 PM Na 138 Cl 103 CO2 25 Glu 106 BUN 22 Cr 1.00 Ca 9.2 LFT's (last 3 years, up to 8 values) 10/24/2023 09/22/2022 07/11/2021 12:12 PM 8:47 AM 6:00 PM T Bili 0.3 0.4 0.6 Sed Rate (ESR) (mm/Hr) Date Value 11/23/2023 31 (H) C-Reactive Protein (mg/dL) Date Value 11/23/2023 2.1 (H) IMAGING: No pertinent imaging ASSESSMENT/PLAN: Alix Woody is a 58 year old male with history of Asthma, degenerative disc disease seen for a follow up visit: Polymyalgia Rheumatica Plan: Will taper down to 15 mg today for 1-month Patient prefers to split prednisone dosing as he feels worse the next day, continue 10 mg AM 5 mg PM Then taper by 2.5 mg every month until 10 mg Will taper by 1 mg once at 10-mg Will repeat inflammatory markers today Will order BMP, Mag due to concern for muscle cramps likely related to prednisone use however RTC: 3-months Patient staffed w/ Dr. Tilley. Lianet Alonzo MD Rheumatology Fellow PGY4 Normal The [employer] Interface Message Text ATTENDING NOTE Teaching Physician Note: I saw and evaluated the patient. I personally obtained the [place] and critical portions of the history and physical exam. I reviewed the resident's documentation and discussed the patient with the resident. I agree with the resident's medical decision making as documented in the resident's note. Doyle Tilley MD Alix Woody has polymyalgia rheumatica. Responded well to prednisone 20mg daily, but has leg cramps which may be associated with his prednisone use. Alix Woody is currently on prednisone 17.5mg daily for the past 2 weeks. He will decrease to 15mg daily for 1 month, 12.5mg daily for 1 month, 10mg daily for 1 month, then decrease by 1mg per month. He finds that prednisone once daily dosing does not last throughout the day. He will take prednisone 10mg in AM and 5mg in PM for the 15mg per day doseing, then 10mg in AM and 2.5mg in PM for the 12.5mg per day dosing. Will then see if can tolerated 10mg in AM for the 10mg daily. If not, then may need to dose at 5mg BID when he is at 10mg per day dosing. Check Hep B/C and TB in case Kevzara may be needed for polymyalgia rheumatica management. Doyle Tilley MD Normal The [employer] Internet Developer Authentication Interface Message Text Patient was identified by name and date of . Shirley Pederson Patient at risk for falls:No Falls Risk protocol implemented: No Normal [facility] [employer] POTASSIUMon 12-28-2023 Potassium [Moles/Vol] 3.8 mmol/L Normal 3.7-5.1 [facility] Comment on above: Order Comment: Speci men Type: BLOOD SPECIMENOrdering Facility: [facility] Address: [address], [place] [address] Performed By: #### K 1 ####LUIS ANTONIO ZIMMER ANGELINA CLARK [id number] [place] [address] [facility] CNPNon 12-25-2023 CNPN Telephone (AGFAMPLE) -- ALIX WOODY ([id number]) 1965 M Date Time Provider Department 12/25/23 NAVYA RODRÍGUEZ AGFAMPLE During your visit today, we recorded the following information about you: Navya Rodríguez DO 12/25/2023 3:21 PM Signed Please call pt- blood work in October shows slightly abnormal marker of inflammation and elevated cholesterol. The rest of the blood work was normal. Has had made appt with area captain yet? I would like for him to start on cholesterol medication and recheck the FLP/LFT in 3 months. Is he willing to do that? Elisabet Sellers MA 12/25/2023 4:37 PM Signed Left message on patients voicemail to contact office. JORGE Rodriguez Kimberly C, DO 12/26/2023 6:58 PM Signed Order attached DO Marcos Don Kimberly C, DO 12/26/2023 6:58 PM Signed Addended by: NAVYA RODRÍGUEZ on: 12/26/2023 06:58 PM Modules accepted: Orders Elisabet Sellers MA 12/28/2023 3:11 PM Signed Patient read his my chart message.e Elisabet Sellers MA Allergies As of Date: 12/25/2023 Noted Allergy Reaction MED-HIST 10/20/2015 4 - Hives Comments: Hay POLLENS EXTRACT 11/27/2014 14 - Other: See Comments VANCOMYCIN 10/20/2015 2 - Rash Date Reviewed: 11/23/2023 Reviewed by: Navya Rodríguez DO - Fully Assessed Reason for Visit: Results [95] Primary Visit Diagnosis:PMR (polymyalgia rheumatica) ([facility]) [M35.3] Other Visit Diagnosis:History of hypokalemia [Z86.39] Order(s):POTASSIUM [SQK1] Order #: [id number] FUTURE Prescriptions as of 12/28/2023 - SUMAtriptan (IMITREX) 100 mg tablet take 1 tablet by mouth AT ONSET OF HEADACHE may repeat in 2 hours IF headache PERSISTS maximum daily dose of 2 tablets (200 milligrams) every 24 hours - predniSONE (DELTASONE) 20 mg tablet Take 1 tablet by mouth once daily. - sertraline (ZOLOFT) 50 mg tablet Take 1 tablet by mouth once daily. - traZODone (DESYREL) 150 mg tablet Take 1 tablet by mouth daily at bedtime. - zoster vaccine, recombinant, adjuvanted, (SHINGRIX) 50 mcg/0.5 mL injection Repeat 2nd dose in 2-6 months. - morphine SR (MS CONTIN, ORAMORPH SR) 15 mg 12 hr tablet TAKE 1 TABLET BY MOUTH TWICE DAILY for up to 28 days - traMADol (ULTRAM) 50 mg tablet Take 50 mg by mouth three times a day. tid Problem List As Of Date 12/25/2023 Noted Resolved Thoracic or lumbosacral neuritis or radiculitis* 11/19/2015 Tibial plateau fracture [S82.143A] 01/07/2015 11/19/2015 Depressive disorder [F32.A] Moderate persistent asthma without complication*11/19/2015 Chronic midline low back pain [M54.50, G89.29] 11/19/2015 05/26/2016 Chronic midline low back pain with bilateral sc*05/26/2016 Primary insomnia [F51.01] 10/13/2016 03/23/2017 Chronic insomnia [F51.04] 03/23/2017 Rash [R21] 03/23/2017 06/22/2017 Acute pain of left shoulder [M25.512] 06/22/2017 Obesity, Class I, BMI 30-34.9 [E66.811] 06/22/2017 Hyperlipidemia, mixed [E78.2] 06/22/2017 Migraine without aura and without status migrai*05/03/2018 BMI 31.0-31.9,adult [Z68.31] 04/21/2019 History of COVID-19 [Z86.16] 05/20/2021 Trigger finger, right middle finger [M65.331] 09/22/2022 Chronic pain of both shoulders [M25.511, G89.29*08/21/2023 Left ankle tendonitis [M77.52] 08/21/2023 Elevated blood pressure reading without diagnos*08/21/2023 PMR (polymyalgia rheumatica) (HCC) [M35.3] 12/25/2023 Encounter Status:Closed by NAVYA RODRÍGUEZ on 12/25/23 Normal [facility] Addendum Noteon 12-10-2023 Internet Developer Authentication Interface Message Text Addended by: LIANET ALONZO on: 12/10/2023 09:50 AM Modules accepted: Orders Normal [facility] C-REACTIVE PROTEINon 024 CRP [Mass/Vol] 2.1 mg/dL High NINF - 0.5 mg/dL [facility] Interpretation and review of laboratory results Abnormal [facility] CRP 2.1 mg/dL High <0.5 [facility] Comment on above: Performed By: #### C K, CRP ####[facility] [id number] [facility] [place], [address] CNOVon 11-23-2023 CNOV Office Visit (HILARIA LONGO) -- ALIX WOODY ([id number]) 1965 M Date Time Provider Department 11/23/23 10:40 AM NAVYA RODRÍGUEZ During your visit today, we recorded the following information about you: Temperature Pulse Respiration Blood pressure 98.2 degrees 86/minute 16/minute 130/80 Weight Height 98.9 kg 1.803 m Navya Rodríguez, DO 12/15/2023 12:39 PM Signed Subjective HPI Pt continues to have joint pain in both shoulders, both hips and hands b/l He wakes up with the pain, which used to get better at noon, but now does not go away He tried PT and cortisone injections in both shoulders, which did not help He tried prednisone for the pain, which did help ALLERGIES Allergen Reactions Med-Hist Hives Hay Pollens Extract Other: See Comments Vancomycin Rash Current Outpatient Medications Medication Sig Dispense Refill SUMAtriptan (IMITREX) 100 mg tablet take 1 tablet by mouth AT ONSET OF HEADACHE may repeat in 2 hours IF headache PERSISTS maximum daily dose of 2 tablets ( 200 milligrams ) every 24 hours 10 tablet 0 sertraline (ZOLOFT) 50 mg tablet Take 1 tablet by mouth once daily. 30 tablet 2 traZODone (DESYREL) 150 mg tablet Take 1 tablet by mouth daily at bedtime. 30 tablet 11 zoster vaccine, recombinant, adjuvanted, (SHINGRIX) 50 mcg/0.5 mL injection Repeat 2nd dose in 2-6 months. 1 Each 0 morphine SR (MS CONTIN, ORAMORPH SR) 15 mg 12 hr tablet TAKE 1 TABLET BY MOUTH TWICE DAILY for up to 28 days traMADol (ULTRAM) 50 mg tablet Take 50 mg by mouth three times a day. tid predniSONE (DELTASONE) 20 mg tablet Take 1 tablet by mouth once daily. (Patient not taking: Reported on 11/23/2023) 20 tablet 0 No current facility-administered medications for this visit. ACTIVE PROBLEM LIST Depressive Disorder Moderate Persistent Asthma Without Complication Chronic Midline Low Back Pain With Bilateral Sciatica Chronic Insomnia Acute Pain of Left Shoulder Obesity, Class I, Bmi 30-34.9 Hyperlipidemia, Mixed Migraine Without Aura and Without Status Migrainosus, Not Intractable Bmi 31.0-31.9,Adult History of Covid-19 Trigger Finger, Right Middle Finger Chronic Pain of Both Shoulders Left Ankle Tendonitis Elevated Blood Pressure Reading Without Diagnosis of Hypertension Social History Tobacco Use Smoking status: Never Smokeless tobacco: Never Tobacco comments: Tobacco no use; Vaping Use Vaping status: Never Used Substance Use Topics Alcohol use: No Drug use: No Family History Problem Relation Age of Onset other (aortic aneurysm rupture) Paternal Grandfather Asthma Mother Ischemic Heart Disease Father other (Heart disease) Father Prostate Cancer Maternal Grandfather Reviewed past medical history, family history and surgeries. All medications and supplements were reviewed with the patient. Review of Systems Constitutional: Negative for chills, diaphoresis, fever, malaise/fatigue and weight loss. HENT: Negative for ear pain and hearing loss. Eyes: Negative for blurred vision and double vision. Respiratory: Negative for cough and shortness of breath. Cardiovascular: Negative for chest pain, palpitations and leg swelling. Gastrointestinal: Negative for constipation, diarrhea and heartburn. Genitourinary: Negative for dysuria and frequency. Musculoskeletal: Positive for joint pain. Negative for back pain, falls and myalgias. Skin: Negative for itching and rash. Neurological: Negative for dizziness, weakness and headaches. Endo/Heme/Allergies: Does not bruise/bleed easily. Psychiatric/Behavioral: Negative for depression and substance abuse. The patient does not have insomnia. Objective BP 120/80 Pulse 86 Temp 36.8 ?C (98.2 ?F) Resp 16 Ht 180.3 cm (5' 11) Wt 98.9 kg (218 lb) SpO2 94% BMI 30.40 kg/m? Physical Exam Constitutional: Appearance: Normal appearance. HENT: Head: Normocephalic and atraumatic. Nose: Nose normal. Mouth/Throat: Mouth: Mucous membranes are moist. Dentition: Normal dentition. Eyes: General: Lids are normal. Extraocular Movements: Extraocular movements intact. Conjunctiva/sclera: Conjunctivae normal. Pupils: Pupils are equal, round, and reactive to light. Neck: Thyroid: No thyroid mass or thyromegaly. Vascular: No carotid bruit. Trachea: Phonation normal. Cardiovascular: Rate and Rhythm: Normal rate and regular rhythm. Heart sounds: Normal heart sounds. No murmur heard. No friction rub. No gallop. Pulmonary: Effort: Pulmonary effort is normal. Breath sounds: Normal breath sounds. No wheezing or rales. Abdominal: General: Bowel sounds are normal. There is no distension. Palpations: Abdomen is soft. There is no mass. Tenderness: There is no abdominal tenderness. Musculoskeletal: General: No swelling or tenderness (over anterior GH joints b/l). Normal range of mo (more content not included)... Normal [facility] CREATINE KINASEon 11-23-2023 CK [Catalytic activity/Vol] 67 U/L [facility] Interpretation and review of laboratory results Normal [facility] [place] CK [Catalytic activity/Vol] 67 U/L Normal 30-233 [facility] Comment on above: Performed By: #### C K, CRP ####[facility] [id number] [place], [place], CYCLIC CITRULLINATED PEPTIDE ,*on 11-23-2023 Cyclic citrullinated peptide IgG Qn U/mL NINF - 3.0 U/mL [facility] Interpretation and review of laboratory results Normal [facility] Reference Range: Negative: < 3.0 U/mL Positive: > or = 3.0 U/mL [facility] CYCLIC CITRULL. PEPTIDE AB, IGG < 0.5 Normal <3.0 [facility] Comment on above: Order Comment: Refer ence Range: Negative: < 3.0 U/mL Positive: > or = 3.0 U/mL Performed By: #### C CP #### [facility] [address] [place], [place], ERYTHROCYTE SEDIMENTATION RA Annelise 11-23-2023 ESR (Bld) [Velocity] 31 mm/h High [facility] Interpretation and review of laboratory results Abnormal [facility] ESR (Bld) [Velocity] 31 mm/h High <=20 [facility] Comment on above: Performed By: #### E SR #### S [facility]Y LABORATORY [address] [place], [place], MYOSITIS SPECIFIC 11 ANTIBOD Y PANELon 11-23-2023 EJ AB <11 Normal <11 [facility] Comment on above: Order Comment: [facility] Address Site ID: EZ Name: [email or web address] [facility], Address: [address] [place] [id number] Director: Jess Gray MD,PhD,FREDDIE Performed By: #### M MEIJO1 #### [facility] Pathology [address] [place], [place] NORIS-1 AB <11 Normal <11 [facility] Comment on above: Order Comment: [facility] Address Site ID: EZ Name: [email or web address] [facility], Address: [address] [place], [place] [id number] Director: Jess Gray MD,PhD,FREDDIE Performed By: #### M YOJO1 #### [facility] [address] [facility] [place], [place] MDA5 AB <11 Normal <11 [facility] Comment on above: Order Comment: [facility] Address Site ID: EZ Name: [email or web address] [facility], Address: [address] [place], [place] [id number] Director: Jess Gray MD,PhD,FREDDIE Performed By: #### M [email or web address] #### [facility] [address] [place], [place]-2 ALPHA AB <11 Normal <11 [facility] Comment on above: Order Comment: [facility] Address Site ID: EZ Name: [email or web address] [facility], Address: [address] [place] [address] Director: Jess Gray MD,PhD,FREDDIE Performed By: #### M YOJO1 #### [facility] [address] [facility] [place], [place] MN-2 BETA AB <11 Normal <11 [facility] Comment on above: Order Comment: [facility] Address Site ID: EZ Name: [email or web address] [facility], Address: [address] [place], [place] [id number] Director: Jess Gray MD,PhD,FREDDIE Performed By: #### M [email or web address] #### [facility] [address] [place], [place] MJ AB <11 Normal <11 [facility] Comment on above: Order Comment: [facility] Address Site ID: EZ Name: [email or web address] [facility], Address: [address] [place], [place] [id number] Director: eJss Gray MD,PhD,FREDDIE Result Comment: Myositis-specific autoantibodies (MSAs) are highly selective, generally mutually exclusive, and are associated with a particular clinical phenotype within the myositis spectrum. Anti-synthetase syndrome is associated with MSAs to cytoplasmic enzymes and tRNAs involved with the synthesis of proteins. Target antigens include Noris-1, PL-7, PL-12, EJ, and OJ. Clinically, anti-synthetase syndrome is primarily characterized by myositis and lung inflammation. Dermatomyositis is associated with MSAs to SRP, Mi-2A, Mi-2B, and clinically this disease is characterized by myositis in association with a rash. Additionally, MSAs to MDA5 ([id number]) have been identified in patients with clinically amyopathic dermatomyositis and rapidly progressive lung disease. MSAs to TIF1-y and NXP-2, collectively, are seen in >40% of children with dermatomyositis and appear to identify those with more severe disease. Finally, TIF1-y Ab has been reported in adults with dermatomyositis and is associated with malignancy, but not in children. SRP Ab has also been associated with necrotizing myopathy, a disease with unique histological features and an aggressive clinical course. This test was developed and its analytical performance characteristics have been determined by [employer]. It has not been cleared or approved by the FDA. This assay has been validated pursuant to the CLIA regulations and is used for clinical purposes. Performed By: #### M ROGELIO1 #### [facility] Pathology [address] [place] [address] [place], [place] OJ AB <11 Normal <11 [facility] Comment on above: Order Comment: [facility] Address Site ID: EZ Name: [email or web address] [facility], Address: [address] [place] [id number] Director: Jess Gray MD,PhD,FREDDIE Performed By: #### M [email or web address] #### [facility] Pathology [address] [place] [address] [place], [place] PL-12 AB <11 Normal <11 [facility] Comment on above: Order Comment: [facility] Address Site ID: EZ Name: [email or web address] [facility], Address: [address] [place] [id number] Director: Jess Gray MD,PhD,FREDDIE Performed By: #### M YOJO1 #### [facility] [address] [facility] [place] [id number] PL-7 AB <11 Normal <11 [facility] Comment on above: Order Comment: [facility] Address Site ID: EZ Name: [email or web address] [facility], Address: [address] [place] [address] Director: Jess Gray MD,PhD,FREDDIE Performed By: #### Raúl YOJO1 #### [facility] [address] [place] [id number] SRP AB <11 Normal <11 [facility] Comment on above: Order Comment: [facility] Address Site ID: EZ Name: [email or web address] [facility], Address: [address] [place] [address] Director: Jess Gray MD,PhD,FREDDIE Performed By: #### Raúl YOJO1 #### [facility] [address] [place] [id number] TIF1-GAMMA AB <11 Normal <11 [facility] Comment on above: Order Comment: [facility] Address Site ID: EZ Name: [email or web address] [facility], Address: [address] [place] [address] Director: Jess Gray MD,PhD,FREDDIE Performed By: #### M YOJO1 #### [facility] Pathology [address] [place], [place] No Panel Informationon 11-22 [facility] Patient Instructionson 11-22 [employer] Authentication Interface Message Text It was a pleasure to see you today! Please continue taking your medications as advised: Take Prednisone 20 mg for the next 2-weeks Please message me in 12-14 days and tell me about your progress We will tailor medications accordingly Remember to have your labs drawn I look forward to seeing you at your next appointment. If you have any questions or concerns in the meantime, don't hesitate to reach out. Normal [facility] [employer] Progress Noteson 11-23-2023 Internet Developer Authentication Interface Message Text TEACHING PHYSICIAN DOCUMENTATION On this day I saw and examined the patient and was physically present for the [place] portions of the services provided. I agree with the resident's plan and notes. The history, physical findings, and medical decision-making are as follows: Patient here with neck and shoulder pain that responded after 3 days of 20 mg prednisone. Has marked morning stiffness. 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 O: WD, WN white man. No temporal artery nodularity or tenderness. Shoulders: decreased ROM right. Right wrist slightly swollen. Rest of fingers OK. 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 Right knee slightly puffy. A: polymyalgia rheumatica is most probably diagnosis. Challenge is that 20 mg prednisone has not completely resolved his issues except perhaps his inflammatory markers which unfortunately were never obtained at the onset of illness. Less likely is early inflammatory arthritis. Even less likely would be an inflammatory myopathy. P: per Dr. Alonzo. Repeat labs today - check CK, CCP. Take 20 mg prednisone a day for 2 weeks and report back. If symptoms not completely better will go up to 30 mg prednisone a day. Once better, will taper down per usual with periodic checking of labs along the way. Sole Uriarte MD Normal [facility] [employer] [facility] Internet Developer Authentication Interface Message Text Rheumatology New Clinic Patient Note Referring Physician: no referring provider Reason for referral: New patient, establish relationship History of present illness: Sonu Woody is a 58 year old male with PMH of Degenerative Disc Disease who presents to [facility] rheumatology clinic for evaluation of: Patient notes that around 4-6 months prior, he has noted bilateral shoulder and posterior neck pain, and bilateral hips (anterolateral). Symptoms are worse in the morning, with associated stiffness that lasts over 2-3 hours to be able to do regular tasks. Symptoms seem to be worsening this past month, extending into the evening and involve hands. Denies significant joint swelling. Was on prednisone 2-months prior due to poison sai and noted significant benefit. He has been consistently on this regimen for 30-days, noted significant benefit earlier on in the month however notes symptoms are getting worse now. Denies rashes, fevers/chills. Denies headaches, vision changes, jaw claudication. Has history of chronic lower back pain in setting of degenerative disease with lumbar fusion however symptoms of back are stable. 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 Pertinent positives are in HPI above. PHYSICAL EXAMINATION: Vitals: 11/23/23 1456 BP: 147/93 Pulse: 78 Temp: 98.4 ???F (36.9 ???C) General: no acute distress Eyes: no photophobia, sclerae without injunction or icterus Respiratory: nonlabored breathing Cardiovascular: no cyanosis Skin: warm and dry, without rashes or lesions DETAILED JOINT EXAMINATION: Neck: Full ROM without pain. Shoulders: Full ROM without pain, No swelling, warmth or tenderness. Elbows: Full ROM without pain, No swelling, warmth or tenderness. Wrists: Full ROM without pain, No swelling, warmth or tenderness. MCP: No swelling, warmth or tenderness. PIP: No swelling, warmth or tenderness. DIP: No swelling, warmth or tenderness. 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 Back: No scoliosis or kyphosis, No spinous process tenderness, Full ROM. Sacroiliac joints: MILES negative. Hips: Mild lateral tenderness to palpation Knees: Full ROM without pain, No swelling, warmth or point tenderness. Ankles: Full ROM, No swelling, warmth or tenderness. Toes: No swelling, warmth or tenderness. LABS: ESR 32 (10/2023) Normal RF Neg RANDI Normal CRP Normal lyme studies IMAGING: B/L hip x-ray 10/2023: No acute radiographic abnormality. ASSESSMENT/PLAN: Sonu Woody is a 58 year old male with PMH of Asthma, Degen disc disease who presents for eval for: Bilateral Shoulder + Hip Girdle Pain + Stiffness, concerning for polymyalgia rheumatica This is not a typical history, he started Pred 20-mg with improvement over 2-3 days however sx worsened a few weeks later on same dose. However over the past week he has been getting worse and he has been tapering on his own to 10-mg. ESR was 32, however was checked in the 2 weeks after prednisone 20 mg had been started Degenerative Disc Disease Plan: - We will plan to continue prednisone 20 mg for another 2 weeks consistently - Informed to contact me in 2 weeks to inform of progress - Labs including ESR, CRP, CCP, Myositis panel, CPK today to be complete and track progress - If symptoms not improving in 2-weeks, we will increase dose to 30-mg daily - If symptoms are improving, we will begin taper by 2.5 mg every month - We will also monitor ESR and CRP at this time - Once at 10-mg, we will taper by 1 mg monthly RTC: 4-weeks Staffed with Dr. Uriarte. Lianet Alonzo MD PGY4 Rheumatology Fellow Normal [facility] [employer] [facility] Internet Developer Authentication Interface Message Text Patient was identified by name and date of . Rylie Souzachandni Patient at risk for falls:No Falls Risk protocol implemented: No Normal [facility] [employer] [facility] CNPAkanksha 11-15-2023 CNPN Telephone (AGFAMPLE) -- ALIX WOODY ([id number]) 1965 M Date Time Provider Department 11/15/23 NAVYA RODRÍGUEZ During your visit today, we recorded the following information about you: Atul Katz MA 11/15/2023 8:12 AM Signed [facility] Visit Date 11/12/[address] Rodríguez green folder to be signed. JORGE Ramon Janie, MA 11/16/2023 10:48 AM Signed Signed by Dr. Rodríguez and faxed back to [phone]. Atul Katz MA Allergies As of Date: 11/15/2023 Noted Allergy Reaction MED-HIST 10/20/2015 4 - Hives Comments: Hay POLLENS EXTRACT 11/27/2014 14 - Other: See Comments VANCOMYCIN 10/20/2015 2 - Rash Date Reviewed: 10/23/2023 Reviewed by: Navya Rodríguez DO - Fully Assessed Reason for Visit: Forms [913] Cmt: [facility] Visit Date 11/12/23 Prescriptions as of 11/16/2023 - SUMAtriptan (IMITREX) 100 mg tablet take 1 tablet by mouth AT ONSET OF HEADACHE may repeat in 2 hours IF headache PERSISTS maximum daily dose of 2 tablets ( 200 milligrams ) every 24 hours - predniSONE (DELTASONE) 20 mg tablet Take 1 tablet by mouth once daily. - sertraline (ZOLOFT) 50 mg tablet Take 1 tablet by mouth once daily. - traZODone (DESYREL) 150 mg tablet Take 1 tablet by mouth daily at bedtime. - zoster vaccine, recombinant, adjuvanted, (SHINGRIX) 50 mcg/0.5 mL injection Repeat 2nd dose in 2-6 months. - morphine SR (MS CONTIN, ORAMORPH SR) 15 mg 12 hr tablet TAKE 1 TABLET BY MOUTH TWICE DAILY for up to 28 days - traMADol (ULTRAM) 50 mg tablet Take 50 mg by mouth three times a day. tid Problem List As Of Date 11/15/2023 Noted Resolved Thoracic or lumbosacral neuritis or radiculitis* 11/19/2015 Tibial plateau fracture [S82.143A] 01/07/2015 11/19/2015 Depressive disorder [F32.A] Moderate persistent asthma without complication*11/19/2015 Chronic midline low back pain [M54.50, G89.29] 11/19/2015 05/26/2016 Chronic midline low back pain with bilateral sc*05/26/2016 Primary insomnia [F51.01] 10/13/2016 03/23/2017 Chronic insomnia [F51.04] 03/23/2017 Rash [R21] 03/23/2017 06/22/2017 Acute pain of left shoulder [M25.512] 06/22/2017 Obesity, Class I, BMI 30-34.9 [E66.9] 06/22/2017 Hyperlipidemia, mixed [E78.2] 06/22/2017 Migraine without aura and without status migrai*05/03/2018 BMI 31.0-31.9,adult [Z68.31] 04/21/2019 History of COVID-19 [Z86.16] 05/20/2021 Trigger finger, right middle finger [M65.331] 09/22/2022 Chronic pain of both shoulders [M25.511, G89.29*08/21/2023 Left ankle tendonitis [M77.52] 08/21/2023 Elevated blood pressure reading without diagnos*08/21/2023 Encounter Status:Closed by ATUL KATZ on 11/15/23 Normal [facility] No Panel Informationon 08-28 Results can be seen in attached scanned documents. If you are a patient reviewing this test result, call the doctor who ordered the test with any questions. [facility] CBC panel Auto (Bld)on 09-22 Erythrocyte distribution width (RBC) [Ratio] 12.0 % 11.5 - 15.0 % [facility] Hematocrit (Bld) [Volume fraction] 43.5 % 39.0 - 51.0 % [facility] Hemoglobin (Bld) [Mass/Vol] 14.2 g/dL 13.0 - 17.0 g/dL [facility] MCH (RBC) [Entitic mass] 30.7 pg 26.0 - 34.0 pg [facility] MCHC (RBC) [Mass/Vol] 32.6 g/dL 30.5 - 36.0 g/dL [facility] MCV (RBC) [Entitic vol] 94.0 fL 80.0 - 100.0 fL [facility] Platelet mean volume (Bld) [Entitic vol] 9.8 fL 9.0 - 12.7 fL [facility] Platelets (Bld) [#/Vol] 304 10*3/uL 150 - 400 k/uL [facility] RBC (Bld) [#/Vol] 4.63 10*6/uL 4.20 - 6.0 0 m/uL [facility] WBC (Bld) [#/Vol] 7.98 10*3/uL 3.70 - 11.00 k/uL [facility] Comprehensive metabolic 2000 panelon 09-22-2022 Albumin [Mass/Vol] 4.5 g/dL 3.9 - 4.9 g/dL [facility] ALP [Catalytic activity/Vol] 73 U/L 38 - 113 U/L [facility] ALT With P-5'-P [Catalytic activity/Vol] 16 U/L 10 - 54 U/L [facility] Anion gap [Moles/Vol] 10 mmol/L 9 - 18 mmol/L [facility] AST With P-5'-P [Catalytic activity/Vol] 22 U/L 14 - 40 U/L [facility] Bilirubin [Mass/Vol] 0.4 mg/dL 0.2 - 1.3 mg/dL [facility] Calcium [Mass/Vol] 9.6 mg/dL 8.5 - 10. 2 mg/dL [facility] Chloride [Moles/Vol] 104 mmol/L 97 - 105 mmol/L [facility] CO2 [Moles/Vol] 28 mmol/L 22 - 30 mmol/L [facility] Creatinine [Mass/Vol] 1.20 mg/dL 0.73 - 1.22 mg/dL [facility] Estimated Glomerular Filtration Rate 70 mL/min/1.73m >=60 mL/min/1.73 m [facility] Glucose [Mass/Vol] 109 mg/dL High 74 - 99 mg/dL [facility] Potassium [Moles/Vol] 4.5 mmol/L 3.7 - 5.1 mmol/L [facility] Protein [Mass/Vol] 7.8 g/dL 6.3 - 8.0 g/dL [facility] Sodium [Moles/Vol] 142 mmol/L 136 - 144 mmol/L [facility] Urea nitrogen [Mass/Vol] 17 mg/dL 9 - 24 mg/dL [facility] Lipid 1996 panelon 3 Cholesterol [Mass/Vol] 178 mg/dL <200 mg/dL [facility] Cholesterol in HDL [Mass/Vol] 39 mg/dL Low >39 mg/dL [facility] Cholesterol in LDL [Mass/Vol] 120 mg/dL High <100 mg/dL [facility] Cholesterol in LDL/Cholesterol in HDL [Mass ratio] 3.08 {ratio} High <2.54 [facility] Cholesterol in VLDL [Mass/Vol] 19 mg/dL <30 mg/dL [facility] Cholesterol non HDL [Mass/Vol] 139 mg/dL High <130 mg/dL [facility] Cholesterol.total/ Cholesterol in HDL [Mass ratio] 4.56 {ratio} <5.10 [facility] Fasting Time 12 hrs [facility] Triglyceride [Mass/Vol] 93 mg/dL <150 mg/dL [facility] PSA/PROSTSPECAG SCRNon 09-22 Prostate specific Ag [Mass/Vol] 1.39 ng/mL <2.60 ng/mL [facility] Laboratory - Drug toxicology on 02-23-2022 Amphetamines Ql (U) Negative <1000 ng/mL [facility] Work Phone: Benzodiazepines Ql (U) Negative < 200 ng/mL [facility] Work Phone: Cannabinoids Screen Ql (U) Negative < 50 ng/mL [facility] Work Phone: Cocaine Ql (U) Negative < 300 ng/mL [facility] Work Phone: Opiates Ql (U) Positive < 300 ng/mL [facility] Work Phone: No Panel Informationon 02-23 MDMA (Ecstasy) Screen Positive < 500 ng/mL [facility] Work Phone: Urine Barbiturates Screen Negative < 200 ng/mL [facility] Work Phone: Urine Drug Screen Comment [facility] Work Phone: Comment on above: CONFIRMATORY TESTING FOR ALL POSITIVE URINE DRUG SCREENRESULTS WILL ONLY BE SENT OUT UPON PHYSICIAN ORDER. VISTA Urine Drug Screen methods provide only preliminaryanalytical test results. A more specific alternate chemicalmethod must be used in order to obtain a confirmedanalytical result. Gas chromatography/mass spectrometery(GC/MS) is the preferred confirmatory method. Clinicalconsideration and professional judgement should be appliedto any drug of abuse test result, particularly whenpreliminary positive results are used. URINE TCA TESTING MUST BE ORDERED SEPARATELY. USE TESTMNEMONIC: [facility] Urine Methadone Screen Negative < 300 ng/mL [facility] Work Phone: Urine phencyclidine (PCP) de tectionon 02-23-2022 Phencyclidine Ql (U) Negative < 25 ng/mL [facility] Work Phone: Clinical Summary: Donato 06-23-2021 [facility] OP Visit Invalid Interpretation Code [facility] Work Phone: Office Visit: Postop - subse quent visit, Rm: 4on 06-23-2021 NEGATED: Highlighted rowUltrasound (unspecified), date done of the right lower extremity on 06/20/2021 at [facility] Invalid Interpretation Code [facility] Work Phone: Clinical Summary: Donato 06-21-2021 [facility] Visit Invalid Interpretation Code [facility] Work Phone: Clinical Summary: Br[place] 06-20-2021 [facility] OP Visit Invalid Interpretation Code [facility] Work Phone: VL DUP LOWER EXTREMITY VENOU S RIGHTon 06-20-2021 [facility] Right Lower Extremity Venous Duplex Report Patient Annalise, : 1965 Study 06/20/2021 Name: Alix (55yrs) Date: Patient [id number] Age: 55 Account: [id number] ID: Gender: M Loc: BP: Ordering Physician: Marimar Mooney Pickle Sorter: Irina Sams RDMS, RVT Interpreting Physician: Alejandro rAaya MD Location: [facility] Indications: Edema right knee. Preliminary result was reported to Faxed to [phone] , by [facility] , on 06/20/2021 , at 11:43 AM. Conclusions 1. There is no evidence of acute deep or superficial venous thrombosis noted in the right lower extremity. 2. The left common femoral vein fully compresses and demonstrates normal venous flow. History: Right lower extremity pain and swelling in knee since surgery Risk factors: Hypertension. Labs, prior tests, procedures, and surgery: Right knee replacement on 03-07-2021 and right knee manipulation x 1 week ago. Study data: Right lower extremity venous duplex evaluation. Right lateral evaluation with grayscale 2D imaging, color Doppler imaging, and spectral Doppler analysis. Location: Vascular laboratory. Procedure: A vascular evaluation was performed with the patient in the supine position. Images were obtained using a [employer] i700 [employer] vascular ultrasound machine. Findings Systemic veins: Patient is not on blood thinners. Venous flow and imaging: + +-------+ + +Location +Overall+Properties + + +-------+ + +R CFV +Patent +Normal phasicity; spontaneous; + + + +normal augmentation; compressible + + +-------+ + +R saphenofemoral junction+Patent +Compressible + + +-------+ + +R profunda femoral +Patent + + + +-------+ + +R FV - prox. +Patent +Compressible + + +-------+ + +R FV - mid +Patent +Normal phasicity; spontaneous; + + + +normal augmentation; compressible + + +-------+ + +R FV - distal +Patent +Compressible + + +-------+ + +R popliteal +Patent +Normal phasicity; spontaneous; + + + +normal augmentation; compressible + + +-------+ + +R gastrocnemius +Patent +Compressible + + +-------+ + +R PTV +Patent +Compressible + + +-------+ + +R peroneal +Patent +Compressible + + +-------+ + +R soleal +Patent +Compressible + + +-------+ + +R GSV +Patent +Compressible + + +-------+ + +R SSV +Patent +Compressible + + +-------+ + +L CFV +Patent +Normal phasicity; spontaneous; + + + +normal augmentation; compressible + + +-------+ + Prepared and electronically signed by Alejandro Araya MD 06/20/2021 13:56 [facility] Alejandro Araya MD - 06/20/2021 [facility] Right Lower Extremity Venous Duplex Report Patient Annalise, : 1965 Study 06/20/2021 Name: Alix (55yrs) Date: Patient [id number] Age: 55 Account: [id number] ID: Gender: M Loc: BP: Ordering Physician: Marimar Mooney Pickle Sorter: Irina Sams RDMS, RVT Interpreting Physician: Alejandro Araya MD Location: [facility] Indications: Edema right knee. Preliminary result was reported to Faxed to [phone] , by Irina Sams [facility] , on 06/20/2021 , at 11:43 AM. Conclusions 1. There is no evidence of acute deep or superficial venous thrombosis noted in the right lower extremity. 2. The left common femoral vein fully compresses and demonstrates normal venous flow. History: Right lower extremity pain and swelling in knee since surgery Risk factors: Hypertension. Labs, prior tests, procedures, and surgery: Right knee replacement on 03-07-2021 and right knee manipulation x 1 week ago. Study data: Right lower extremity venous duplex evaluation. Right lateral evaluation with grayscale 2D imaging, color Doppler imaging, and spectral Doppler analysis. Location: Vascular laboratory. Procedure: A vascular evaluation was performed with the patient in the supine position. Images were obtained using a [employer] i700 [employer] vascular ultrasound machine. Findings Systemic veins: Patient is not on blood thinners. Venous flow and imaging: + +-------+ + +Location +Overall+Properties + + +-------+ + +R CFV +Patent +Normal phasicity; spontaneous; + + + +normal augmentation; compressible + + +-------+ + +R saphenofemoral junction+Patent +Compressible + + +-------+ + +R profunda femoral +Patent + + + +-------+ + +R FV - prox. +Patent +Compressible + + +-------+ + +R FV - mid +Patent +Normal phasicity; spontaneous; + + + +normal augmentation; compressible + + +-------+ + +R FV - distal +Patent +Compressible + + +-------+ + +R popliteal +Patent +Normal phasicity; spontaneous; + + + +normal augmentation; compressible + + +-------+ + +R gastrocnemius +Patent +Compressible + + +-------+ + +R PTV +Patent +Compressible + + +-------+ + +R peroneal +Patent +Compressible + + +-------+ + +R soleal +Patent +Compressible + + +-------+ + +R GSV +Patent +Compressible + + +-------+ + +R SSV +Patent +Compressible + + +-------+ + +L CFV +Patent +Normal phasicity; spontaneous; + + + +normal augmentation; compressible + + +-------+ + Prepared and electronically signed by Alejandro Araya MD 06/20/2021 13:56 [facility] Work Phone: Radiology Study observation (narrative) [employer] Work Phone: VL DUP LOWER EXTREMITY VENOU S RIGHTOrdered By: Alejandro Araya on 06-20-2021 [employer] Work Phone: VL Venous Duplex US Lower Ex t Righton 06-20-2021 VL Venous Duplex US Lower Ext Right Patient Name: ALIX WOODY Ultrasound ACCESSION EXAM DATE/TIME PROCEDURE ORDERING PROVIDER [id number] 06/20/2021 11:38 EDT VL Venous Duplex US SHANTEL MOONEY KAITLYN Lower Ext Right CPT code 72780 Reason For Exam (VL Venous Duplex US Lower Ext Right) R60.0 Report [facility] Right Lower Extremity Venous Duplex Report Patient DO AnnaliseB: 1965 Study 06/20/2021 Name: Alix (55yrs) Date: Patient [id number] Age: 55 Account: [id number] ID: Gender: M Loc: BP: Ordering Physician: Marimar Mooney Pickle Sorter: Irina Sams RDMS, RVT Interpreting Physician: Alejandro Araya MD Location: [facility] Indications: Edema right knee. Preliminary result was reported to Faxed to [phone] , by [facility] Sams [facility] , on 06/20/2021 , at 11:43 AM. Conclusions 1. There is no evidence of acute deep or superficial venous thrombosis noted in the right lower extremity. 2. The left common femoral vein fully compresses and demonstrates normal venous flow. History: Right lower extremity pain and swelling in knee since surgery Risk factors: Hypertension. Labs, prior tests, procedures, and surgery: Right knee replacement on 03-07-2021 and right knee manipulation x 1 week ago. Ultrasound Report Study data: Right lower extremity venous duplex evaluation. Right lateral evaluation with grayscale 2D imaging, color Doppler imaging, and spectral Doppler analysis. Location: Vascular laboratory. Procedure: A vascular evaluation was performed with the patient in the supine position. Images were obtained using a [employer] i700 Aplio vascular ultrasound machine. Findings Systemic veins: Patient is not on blood thinners. Venous flow and imaging: + +-------+ + +Location +Overall+Properties + + +-------+ + +R CFV +Patent +Normal phasicity; spontaneous; + + + +normal augmentation; compressible + + +-------+ + +R saphenofemoral junction+Patent +Compressible + + +-------+ + +R profunda femoral +Patent + + + +-------+ + +R FV - prox. +Patent +Compressible + + +-------+ + +R FV - mid +Patent +Normal phasicity; spontaneous; + + + +normal augmentation; compressible + + +-------+ + +R FV - distal +Patent +Compressible + + +-------+ + +R popliteal +Patent +Normal phasicity; spontaneous; + + + +normal augmentation; compressible + + +-------+ + +R gastrocnemius +Patent +Compressible + + +-------+ + +R PTV +Patent +Compressible + + +-------+ + +R peroneal +Patent +Compressible + + +-------+ + +R soleal +Patent +Compressible + + +-------+ + +R GSV +Patent +Compressible + + +-------+ + +R SSV +Patent +Compressible + + +-------+ + +L CFV +Patent +Normal phasicity; spontaneous; + + + +normal augmentation; compressible + + +-------+ + Prepared and electronically signed by Alejandro Araya MD Ultrasound Report 06/20/2021 13:56 Final Dictated: 06/20/2021 1:56 pm Dictating Physician: ALEJANDRO ARAYA Signed Date and Time: 06/20/2021 1:56 pm Signed by: ALEJANDRO ARAYA Cardiovascular ACCESSION EXAM DATE/TIME PROCEDURE [id number] 06/20/2021 11:38 EDT VL Venous Duplex US Lower Ext Right CPT code 04517 Reason For Exam (VL Venous Duplex US Lower Ext Ri (more content not included)... Normal [facility] Clinical Summary: Donato farley 05-20-2021 [facility] OP Visit Invalid Interpretation Code [facility] Work Phone: Office Visit: Postop - subse quent visit, Rm: 6on 05-20-2021 NEGATED: Highlighted rowxray history of the right knee on 04/04/2021 at [facility] Invalid Interpretation Code [facility] Work Phone: MRI ANKLE WO IVCON LTon 11-2 MRI ANKLE WO IVCON LT Final Report DATE OF EXAM: Feb 04 2020 4:41PM LDM 0163 - MRI ANKLE WO IVCON LT / PROCEDURE REASON: m72.2 pLANTAR FASCIITIS Physician Interpretation EXAM TITLE: MRI ANKLE WO IVCON LT DATE: 03/05/2020 COMPARISON: Radiographs 11/30/2019 CLINICAL INDICATION/HISTORY: Plantar fasciitis TECHNIQUE: MRI left ankle performed as per routine protocol FINDINGS: There are findings compatible with plantar fasciitis. There is a thickened and edematous proximal medial sleeve with edema noted within the adjacent soft tissues and calcaneal attachment. There is calcaneal enthesophyte formation. No fracture or stress-related change. No significant arthritic change. There is a longitudinal split tear of the peroneus brevis tendon. The peroneus longus tendon appears normal as do the flexor and extensor tendons. There is very minimal Achilles tendinosis demonstrating slight anterior convexity. The ligamentous structures about the ankle are normal. Also, the spring ligament and interosseous Lisfranc ligament appear to be intact. Normal talar dome and sinus tarsi fat. IMPRESSION: 1. Plantar fasciitis. 2. Longitudinal split tear of the peroneus brevis tendon. 3. Minimal Achilles tendinosis. Production Control Planner[facility] Transcribe Date/Time: Feb 05 2020 7:49P Dictated by : VENKATA JACINTO MD This examination was interpreted and the report reviewed and electronically signed by: VENKATA JACINTO MD on Feb 05 2020 7:54PM EST Normal [facility] XR FOOT 3V AP/LAT/OBL LTon 0 11-30-2019 XR FOOT 3V AP/LAT/OBL LT Final Report DATE OF EXAM: Nov 30 2019 2:52PM LDX 5336 - XR FOOT 3V AP/LAT/OBL LT / PROCEDURE REASON: Bone pain, foot Physician Interpretation LEFT FOOT, DORSAL PLANTAR, OBLIQUE AND LATERAL: CLINICAL INDICATION: Recent onset left foot pain, bottom of heel when walking. COMPARISON: Left foot 09/04/2014. The joint spaces are preserved. There are no periarticular erosions. There is no osteolytic or osteosclerotic abnormality. There is no acute fracture. There is a redemonstrated plantar calcaneal enthesophyte.. The enthesophyte measures 8 mm in length. There is new soft tissue mineralization plantar to the enthesophyte. IMPRESSION: Plantar calcaneal enthesopathy with soft tissue mineralization. Production Control Planner: JESSICA Transcribe Date/Time: Nov 30 2019 3:03P Dictated by : OMAYRA WONG MD This examination was interpreted and the report reviewed and electronically signed by: OMAYRA WONG MD on Nov 30 2019 3:07PM EST Normal [facility] US DVT LOWER RTon 11-27-2019 US DVT LOWER RT Final Report DATE OF EXAM: Nov 27 2019 10:04AM LDU 1007 - US DVT LOWER RT / PROCEDURE REASON: Swelling of right lower extremity Physician Interpretation EXAMINATION: RIGHT LOWER EXTREMITY DEEP VENOUS ULTRASOUND WITH DOPPLER IMAGING CLINICAL HISTORY: Leg pain or tenderness. TECHNIQUE: Grayscale with compression maneuvers, color Doppler and spectral Doppler at rest and with augmentation of the right distal external iliac, common femoral, femoral and popliteal veins was performed. Grayscale with compression maneuvers of the peroneal and posterior tibial veins was performed. The right great and small saphenous veins were also imaged in grayscale with compression maneuvers at their insertion to the deep system. The contralateral common femoral vein was imaged for comparison. Images were obtained and stored in a permanent archive. MQ: LER_1 COMPARISON: None RESULT: RIGHT LOWER EXTREMITY PROXIMAL DEEP VEINS Distal External Iliac and Common Femoral Veins: Compression: Normal Doppler: Normal, spontaneous respirophasic flow. Normal response to augmentation. Femoral vein: Compression: Normal Doppler: Normal, spontaneous flow. Normal response to augmentation. Popliteal vein: Compression: Normal Doppler: Normal, spontaneous flow. Normal response to augmentation. CALF DEEP VEINS Peroneal veins: Normal compression. Posterior tibial veins: Normal compression. Gastrocnemius and Soleal veins: Not imaged. SUPERFICIAL VEINS Great saphenous: Echogenic thrombus with lack of compressibility consistent with thrombosis. This corresponds to the area of concern at the medial aspect of the knee. Small Saphenous: Patent and compressible in the proximal calf, not otherwise assessed. LEFT LOWER EXTREMITY (FOR COMPARISON) Common Femoral Vein: Compression: Normal Doppler: Normal, spontaneous respirophasic flow. Normal response to augmentation. IMPRESSION: Negative study for acute proximal DVT in the right lower extremity. Negative study for acute calf DVT in the right lower extremity. Positive study for superficial thrombophlebitis of the right saphenous vein. This corresponds to the area of concern at the medial aspect of the knee. Production Control Planner: [facility] Transcribe Date/Time: Nov 27 2019 11:39A Dictated by : BOBBI CAMARENA MD This examination was interpreted and the report reviewed and electronically signed by: BOBBI CAMARENA MD on Nov 27 2019 11:47AM EST Normal [facility] MRI KNEE WO IVCON LTon 11-04 MRI KNEE WO IVCON LT Final Report DATE OF EXAM: Nov 05 2019 12:43PM [facility] 0212 - MRI KNEE WO IVCON LT / PROCEDURE REASON: Tear of Medial Meniscus fo lt knee Physician Interpretation EXAM: MRI LEFT KNEE CLINICAL HISTORY: Left knee pain. Concern for medial meniscal tear. COMPARISON: Knee radiographs 08/17/2019 TECHNIQUE: Routine MRI left knee FINDINGS: Irregular truncation of the free edge of the body segment medial meniscus noted with linear signal abnormality extending to the peripheral capsular surface. This is consistent with a complex predominantly radial tear. A small associated parameniscal cyst extends along the peripheral capsular surface of the tear. Mild chondral thinning and surface irregularity noted along the weightbearing surface of the medial femoral condyle. Medial collateral ligament is intact. Trace fluid interposed between the deep and superficial portions of the medial collateral ligament is consistent with mild tibial collateral ligament bursitis. Anterior and posterior cruciate ligaments are intact. There is no lateral meniscal tear. Minimal chondral fissuring of the lateral tibial plateau. Lateral collateral ligament and biceps femoris tendon are intact. Iliotibial band and popliteus tendon appear intact. Patellar retinacula are intact. Quadriceps and patellar tendons are intact. Chondral fissuring at the central and lateral femoral trochlea with subjacent subchondral cystic change. Small knee joint effusion. No fracture or pathologic marrow replacing lesion. IMPRESSION: 1. Complex predominantly radial tear involving the body segment medial meniscus with small associated parameniscal cyst. 2. Chondral fissuring at the central and lateral femoral trochlea with subjacent subchondral cystic change. 3. Small knee joint effusion. 4. Mild tibial collateral ligament bursitis. Mild chondral thinning and slight surface irregularity along the weightbearing surface medial femoral condyle. Minimal chondral fissuring lateral tibial plateau. Production Control Planner: [facility] Transcribe Date/Time: Nov 05 2019 4:40P Dictated by : BOBBI CAMARENA MD This examination was interpreted and the report reviewed and electronically signed by: BOBBI CAMARENA MD on Nov 05 2019 4:47PM [facility] XR KNEE 4V AP/PA BOTH+LAT/ME R RTon 10-30-2019 XR KNEE 4V AP/PA BOTH+LAT/JAVIER RT Final Report DATE OF EXAM: Oct 30 2019 12:25PM LDX 5203 - XR KNEE 4V AP/PA BOTH+LAT/JAVIER RT / PROCEDURE REASON: Acute pain of right knee Physician Interpretation EXAMINATION: XR KNEE 4V AP/PA BOTH+LAT/JAVIER RT CLINICAL HISTORY: fell of ladder pain both sides (lateral and medial) of knee area Acute pain of right knee Technique: XR KNEE 4V AP/PA BOTH+LAT/JAVIER RT -- RIGHT with 4 views on 4 images Comparison: None RESULT: No fracture or dislocation. Moderate medial compartment joint space narrowing with small marginal osteophytes. Mild to moderate patellofemoral degenerative changes with marginal osteophytes. No knee effusion. IMPRESSION: Degenerative changes without acute osseous findings. Production Control Planner: JESSICA Transcribe Date/Time: Oct 30 2019 1:01P Dictated by : NESSA BALDERAS MD This examination was interpreted and the report reviewed and electronically signed by: NESSA BALDERAS MD on Oct 30 2019 1:02PM EST Normal [facility] CT ABD/PEL W IVCONon 08-14-[address] ABD/PEL W IVCON Final Report DATE OF EXAM: Oct 24 2019 7:55PM [facility] 0530 - CT ABD/PEL W IVCON / PROCEDURE REASON: Abdomen-pelvis trauma, moderate, blunt Physician Interpretation EXAMINATION: CT ABDOMEN AND PELVIS WITH IV CONTRAST CLINICAL HISTORY: Fall from ladder. Abdominal trauma, blunt. TECHNIQUE: CT of the abdomen and pelvis was performed using standard technique, scanning from just above the dome of the diaphragm to the symphysis pubis. MQ: CTAP_3 Contrast: IV: 150 mL Omnipaque 300 IV Oral: None CT Dose-Length Product: 589.24 (chest) mGycm CT Dose Reduction Employed: mAs-kVp adjusted based on patient size-age COMPARISON: CT abdomen and pelvis 07/07/2015. RESULT: Liver: Unremarkable. Biliary: Mild intrahepatic bile duct dilatation. Contracted gallbladder with mild thick-walled appearing fundus. No pericholecystic inflammatory changes.. No extrahepatic bile duct dilatation. Spleen: Unremarkable. Pancreas: No mass or duct dilation. Adrenals: Unremarkable. Kidneys: Several subcentimeter cortical hypodensities, considered too small to characterize. No hydronephrosis. GI tract: No dilation or wall thickening. Lymph nodes: No abdominal or pelvic lymphadenopathy. Mesentery/Peritoneum: No hemoperitoneum. Retroperitoneum: No hematoma. Vasculature: The celiac axis and SMA are patent. The portal vein and branches, splenic vein, SMV, and hepatic veins are patent. Pelvis: No mass, ascites or fluid collection. Bones/Soft Tissues: For purposes of this report there are 5 nonrib-bearing lumbar vertebra with the L4-5 disc space at the level of the iliac crest. There are postoperative changes of posterior decompression L5 with posterior fixation L5-S1. There are moderate intervertebral disc degenerative changes at L4-5 with minimal anterolisthesis of L4 and L5. There is more pronounced thickening of the crura, right greater than left. Small fat-containing umbilical hernia. Lower thorax: See separate CT chest 10/24/2019. Road Boss (topogram) images: Noncontributory. IMPRESSION: No evidence of acute intra-abdominal traumatic abnormality. Mild intrahepatic bile duct dilatation with contracted, mild thick-walled appearing gallbladder fundus. Correlate with liver enzymes. Consider nonemergent right upper quadrant ultrasound for follow-up as indicated. Production Control Planner: JESSICA Transcribe Date/Time: Oct 24 2019 8:38P Dictated by : OMAYRA WONG MD This examination was interpreted and the report reviewed and electronically signed by: OMAYRA WONG MD on Oct 24 2019 8:49PM EST Normal [facility] CT BRAIN WO IVCONon 10-24-[address] BRAIN WO IVCON Final Report DATE OF EXAM: Oct 24 2019 7:41PM [facility] 0504 - CT BRAIN WO IVCON / PROCEDURE REASON: Head trauma, headache Physician Interpretation EXAMINATION: CT BRAIN WO IVCON CLINICAL HISTORY: Fall from ladder. Head trauma, blunt. TECHNIQUE: Serial axial images without IV contrast were obtained from the vertex to the foramen magnum. MQ: CTBWO_3 CT Dose-Length Product (DLP): 882.[address] Dose Reduction Employed: No dose reduction techniques were required COMPARISON: 09/21/2011. RESULT: Post-operative change: None. Acute change: No evidence of an acute infarct. Hemorrhage: No evidence of acute intracranial hemorrhage. Mass Lesion / Mass Effect: There is no evidence of an intracranial mass, extra-axial fluid collection or mass effect. Chronic change: None apparent. Parenchyma: There is no volume loss. The brain parenchyma is otherwise within normal limits for age. Ventricles: The ventricles are within normal limits of size and configuration for age. Paranasal sinuses and skull base: The visualized paranasal sinuses are clear. Road Boss (topogram) images: Noncontributory IMPRESSION: No acute abnormality. Production Control Planner: JESSICA Transcribe Date/Time: Oct 24 2019 8:25P Dictated by : OMAYRA WONG MD This examination was interpreted and the report reviewed and electronically signed by: OMAYRA WONG MD on Oct 24 2019 8:29PM EST Normal [facility] CT CERVICAL SPINE WO IVCONon 10-24-2019 CT CERVICAL SPINE WO IVCON Final Report DATE OF EXAM: Oct 24 2019 7:41PM [facility] 0505 - CT CERVICAL SPINE WO IVCON / PROCEDURE REASON: C-spine trauma, NEXUS/CCR positive Physician Interpretation EXAMINATION: CT CERVICAL SPINE WITHOUT CONTRAST CLINICAL HISTORY: C-spine trauma, NEXUS/CCR positive, fell 15ft with a ladder.patient reports he didn't have LOC, denies STRAUSS. patient reports landing on his R side onto the ladder. +neck stiffness TECHNIQUE: CT of the cervical spine without IV contrast. Spiral, high resolution axial images were obtained from the skull base to the cervicothoracic junction with sagittal and coronal planar reconstructions. CT Dose-Length Product (DLP): 431.[address] Dose Reduction Employed: None required. COMPARISON: None. RESULT: Counting reference: Craniocervical junction. Alignment: Alignment is anatomic. Craniocervical junction: Craniocervical junction is normal. Bone: Included bony structures are intact without fracture or destructive changes. Degenerative change: Mild degenerative disc changes at multiple cervical disc levels. Also mild facet arthritic changes at multiple levels. Spinal canal: No spinal stenosis detected but please note that evaluation of the spinal canal can be significantly compromised by artifact from surrounding dense bony structures, especially in the lower cervical spine. Cervical soft tissues: The paraspinal soft tissues planes are maintained. Other: Included upper thoracic structures are unremarkable. IMPRESSION: 1. No acute fracture or traumatic malalignment. Production Control Planner[facility] Transcribe Date/Time: Oct 24 2019 9:18P Dictated by : JETT CADENA MD This examination was interpreted and the report reviewed and electronically signed by: JETT CADENA MD on Oct 24 2019 9:23PM EST Normal [facility] CT CHEST W IVCONon 0 CT CHEST W IVCON Final Report DATE OF EXAM: Oct 24 2019 7:55PM [facility] 0539 - CT CHEST W IVCON / PROCEDURE REASON: Chest trauma, blunt Physician Interpretation EXAMINATION: CHEST CT WITH CONTRAST CLINICAL HISTORY: Fall from ladder. Chest trauma, blunt. Technique: Spiral CT acquisition of the chest from the thoracic inlet to the upper abdomen following IV contrast. MQ: CTCW_6 Contrast: 150 mL Omnipaque [address] Dose-Length Product: 589.24 (chest) mGycm CT Dose Reduction Employed: mAs-kVp adjusted based on patient size-age Comparison: Chest radiographs 01/02/[address] chest study 10/16/2010. RESULT: Limitations: Rest right motion. Lines, tubes, and devices: None. Lung parenchyma and airways: On the right, there is a 4 mm subpleural nonsolid nodule lateral upper lobe at the lico, image 97 of series 5. Stable. There is a 2 mm nodule in profile with the minor fissure, image 127. Stable. There is no parenchymal consolidation. On the left, there is a 2 mm anterior upper lobe subpleural nodule, image 75. There is a 4 mm anterior upper lobe nodule on the same image. There is a 4 mm upper lobe nodular density, image 120. There is no parenchymal consolidation. Pleural space: No hemothorax. No pneumothorax. Lower neck, lymph nodes, and mediastinum: The imaged thyroid gland is unremarkable. No lymphadenopathy in the supraclavicular, axillary, mediastinal, or hilar regions. Heart, pericardium, and thoracic vessels: The thoracic aorta and main pulmonary artery are normal in caliber. Evaluation of the aortic root and ascending thoracic is considered limited by pulsation artifact. The cardiac chambers are normal in size. No coronary artery atherosclerotic calcifications are noted, although the study is not optimized for coronary assessment. No pericardial effusion or thickening. Bones and soft tissues: No acute fracture. Chest wall is unremarkable. Upper abdomen: See separate CT abdomen and pelvis 10/24/2019.. Road Boss (topogram) images: Noncontributory. IMPRESSION: Sub-6 mm left upper lobe pulmonary nodules. Incidental Finding: No follow-up imaging for this/these incidentally detected lung nodule(s) is recommended. If there are risk factors for lung malignancy, a follow-up chest CT exam could be obtained in 12 months. Production Control Planner: [facility] Transcribe Date/Time: Oct 24 2019 8:29P Dictated by : OMAYRA WONG MD This examination was interpreted and the report reviewed and electronically signed by: OMAYRA WONG MD on Oct 24 2019 8:50PM EST Normal [facility] XR FOREARM 2V AP/LAT RTon XR FOREARM 2V AP/LAT RT Final Report DATE OF EXAM: Oct 24 2019 8:29PM LDX 5342 - XR FOREARM 2V AP/LAT RT / PROCEDURE REASON: Bone pain, forearm Physician Interpretation PROCEDURE: Right forearm, right humerus and right wrist INDICATION: Bone pain, forearm.fall elbow pain (accession [id number]), fall wrist pain (accession [id number]), fall elbow pain (accession [id number]) TECHNIQUE: XR FOREARM 2V AP/LAT RT, XR WRIST 4V PA/LAT/OBL/SCAPH RT, XR HUMERUS 2V AP/LAT RT, CT CERVICAL SPINE WO IVCON COMPARISON: None FINDINGS: Right humerus: No fractures or dislocations are seen. The bones, joint spaces and soft tissues are unremarkable. Right forearm: No fractures or dislocations are seen. The bones, joint spaces and soft tissues are unremarkable. Right wrist: No acute fracture or dislocation. Mild triscaphe and 1st CMC joint osteoarthrosis. Small calcifications in the soft tissues adjacent to the radial styloid. Mild degenerative spurring at the radioulnar joint. IMPRESSION: No acute abnormality Production Control Planner: JESSICA Transcribe Date/Time: Oct 24 2019 8:50P Dictated by : ANGELICA RUSH MD This examination was interpreted and the report reviewed and electronically signed by: ANGELICA RUSH MD on Oct 24 2019 8:50PM EST Normal [facility] XR HUMERUS 2V AP/LAT RTon XR HUMERUS 2V AP/LAT RT Final Report DATE OF EXAM: Oct 24 2019 8:26PM LDX 5355 - XR HUMERUS 2V AP/LAT RT / PROCEDURE REASON: Upper arm trauma, fx suspected, initial exam Physician Interpretation PROCEDURE: Right forearm, right humerus and right wrist INDICATION: Bone pain, forearm.fall elbow pain (accession [id number]), fall wrist pain (accession [id number]), fall elbow pain (accession [id number]) TECHNIQUE: XR FOREARM 2V AP/LAT RT, XR WRIST 4V PA/LAT/OBL/SCAPH RT, XR HUMERUS 2V AP/LAT RT, CT CERVICAL SPINE WO IVCON COMPARISON: None FINDINGS: Right humerus: No fractures or dislocations are seen. The bones, joint spaces and soft tissues are unremarkable. Right forearm: No fractures or dislocations are seen. The bones, joint spaces and soft tissues are unremarkable. Right wrist: No acute fracture or dislocation. Mild triscaphe and 1st CMC joint osteoarthrosis. Small calcifications in the soft tissues adjacent to the radial styloid. Mild degenerative spurring at the radioulnar joint. IMPRESSION: No acute abnormality Production Control Planner: JESSICA Transcribe Date/Time: Oct 24 2019 8:50P Dictated by : ANGELICA RUSH MD This examination was interpreted and the report reviewed and electronically signed by: ANGELICA RUSH MD on Oct 24 2019 8:50PM EST Normal [facility] XR WRIST 4V PA/LAT/OBL/SCAPH RTon 10-24-2019 XR WRIST 4V PA/LAT/OBL/SCAPH RT Final Report DATE OF EXAM: Oct 24 2019 8:28PM LDX 5273 - XR WRIST 4V PA/LAT/OBL/SCAPH RT / PROCEDURE REASON: Polytrauma, critical, upper ext injury suspected Physician Interpretation PROCEDURE: Right forearm, right humerus and right wrist INDICATION: Bone pain, forearm.fall elbow pain (accession [id number]), fall wrist pain (accession [id number]), fall elbow pain (accession [id number]) TECHNIQUE: XR FOREARM 2V AP/LAT RT, XR WRIST 4V PA/LAT/OBL/SCAPH RT, XR HUMERUS 2V AP/LAT RT, CT CERVICAL SPINE WO IVCON COMPARISON: None FINDINGS: Right humerus: No fractures or dislocations are seen. The bones, joint spaces and soft tissues are unremarkable. Right forearm: No fractures or dislocations are seen. The bones, joint spaces and soft tissues are unremarkable. Right wrist: No acute fracture or dislocation. Mild triscaphe and 1st CMC joint osteoarthrosis. Small calcifications in the soft tissues adjacent to the radial styloid. Mild degenerative spurring at the radioulnar joint. IMPRESSION: No acute abnormality Production Control Planner: JESSICA Transcribe Date/Time: Oct 24 2019 8:50P Dictated by : ANGELICA RUSH MD This examination was interpreted and the report reviewed and electronically signed by: ANGELICA RUSH MD on Oct 24 2019 8:50PM EST Normal [facility] XR KNEE 4V AP/LAT/OBLS LTon 08-17-2019 XR KNEE 4V AP/LAT/OBLS LT * * *Final Report* * * DATE OF EXAM: Aug 17 2019 12:31AM LDX 5204 - XR KNEE 4V AP/LAT/OBLS LT / PROCEDURE REASON: Bone pain, knee * * * * Physician Interpretation * * * * EXAMINATION: XR KNEE 4V AP/LAT/OBLS LT HISTORY: medial knee pain, swelling x a few weeks, no known injury Bone pain, knee. TECHNIQUE: XR KNEE 4V AP/LAT/OBLS LT Laterality: LEFT Number of different views (projections): 4 M: XB_1 COMPARISON: None RESULT: Medial and lateral compartment chondrocalcinosis. No acute fracture or malalignment. Small suprapatellar knee joint effusion. IMPRESSION: 1. Small knee joint effusion. 2. No acute osseous abnormality 3. Chondrocalcinosis can be seen with CPPD arthropathy Production Control Planner: JESSICA Transcribe Date/Time: Aug 17 2019 12:35A Dictated by : GENO MORALES MD This examination was interpreted and the report reviewed and electronically signed by: GENO MORALES MD on Aug 17 2019 12:37AM EST Normal [facility] MRI LUMBAR SPINE WO IVCONon 04-02-2019 MRI LUMBAR SPINE WO IVCON * * *Final Report* * * DATE OF EXAM: Apr 02 2019 9:43AM LDM 0303 - MRI LUMBAR SPINE WO IVCON / PROCEDURE REASON: Spinal stenosis of lumbar region with neurogenic claudication * * * * Physician Interpretation * * * * EXAMINATION: MRI LUMBAR SPINE WO IVCON CLINICAL HISTORY: Spinal stenosis of lumbar region with neurogenic claudication TECHNIQUE: Routine lumbosacral spine MR protocol without gadolinium. MQ: [id number] COMPARISON: Lumbar radiograph 10/20/2016 RESULT: Counting reference: Lumbosacral junction. For the purposes of this report, L4-5 is considered the level of the iliac crest and assume there are 5 lumbar-type vertebrae. Anatomic variant: None. Alignment: Mild retrolisthesis at L5-S1 due to facet arthropathy. Bone marrow signal/fracture: Postsurgical changes from L5-S1 laminectomy and instrumented posterior fusion are again seen No evidence of pathologic marrow infiltration. No evidence of prior fracture. Severe loss of disc height and signal at L5-S1. Conus: The conus is within normal limits of signal intensity and morphology. No evidence of arachnoiditis Paraspinal soft tissues: Paraspinal soft tissues are within normal limits. Lower thoracic spine: Visualized lower thoracic canal and foramina are patent. T12-L1: Canal and foramina are patent. L1-L2: Disc bulge and facet hypertrophy contribute to mild canal stenosis. Foramina are patent L2-L3: Canal and foramina are patent L3-L4: Disc bulge, facet hypertrophy and ligamentum flavum thickening contribute to mild to moderate canal stenosis and mild bilateral foraminal stenosis. L4-L5: Disc bulge, facet hypertrophy and ligamentum flavum thickening contribute to moderate canal stenosis, moderate right and mild left foraminal stenosis. There is bilateral moderate to severe subarticular stenosis. Stable L5-S1: Facet hypertrophy contribute to mild right foraminal stenosis. Canal is patent. Sacrum and iliac wings: The visualized sacrum and iliac wings are within normal limits. IMPRESSION: Postsurgical changes in the lumbar spine. Grossly stable lumbar spondylosis most pronounced at L4-5 with moderate canal and foraminal stenosis. Bilateral traversing L5 nerve roots may be impinged due to subarticular stenosis. Anatomic Thoracic/Lumbar Variant: None. L4-5 is considered the level of the iliac crest and assume there are 5 lumbar-type vertebrae. Production Control Planner: JESSICA Transcribe Date/Time: Apr 02 2019 12:56P Dictated by : JAYDE MEYERS MD This examination was interpreted and the report reviewed and electronically signed by: JAYDE MEYERS MD on Apr 02 2019 1:07PM EST Normal [facility] Basic Panelon 03-07-2019 Calcium [Mass/Vol] 8.6 mg/dL Normal 8.5-10.1 [facility] Comment on above: Performed By: #### L P8 #### [place] [address] CO2 Blood 26 mEq/L Normal 21-32 [facility] Comment on above: Performed By: #### L P8 #### [place] [address] Creatinine [Mass/Vol] 1.04 mg/dL Normal 0.67-1.17 [facility] Comment on above: Performed By: #### L P8 #### [address] [address] Glucose [Mass/Vol] 131 mg/dL High 70-99 [facility] Comment on above: Performed By: #### L P8 #### [place] [address] Urea nitrogen [Mass/Vol] 25 mg/dL High 7-18 [facility] Comment on above: Performed By: #### L P8 #### [facility] [address] [place] [address] Chloride [Moles/Vol] 103 mmol/L Normal 98-109 [facility] Comment on above: Result Comment: Test ing performed on an Alonzo i-STAT. Performed By: #### L P8 #### [place] [address] Potassium [Moles/Vol] 3.9 mmol/L Normal 3.5-4.9 [facility] Comment on above: Result Comment: Test ing performed on an Alonzo i-STAT. Performed By: #### L P8 #### [facility] [address] [place] [address] Sodium [Moles/Vol] 139 mmol/L Normal 138-146 [facility] Comment on above: Result Comment: Test ing performed on an [employer]onzo i-STAT. Performed By: #### L P8 #### [place] [address] CPKon 03-07-2019 CPK 318 U/L High 39-308 [facility] Comment on above: Performed By: #### L CK #### [place] [address] Hemogramon 03-07-2019 Erythrocyte distribution width (RBC) [Ratio] 11.8 % Normal 11.5-15.9 [facility] Comment on above: Performed By: #### L CBC #### [place] [address] Hematocrit (Bld) [Volume fraction] 41.4 % Low 42.0-52.0 [facility] Comment on above: Performed By: #### L CBC #### [place] [address] Hemoglobin (Bld) [Mass/Vol] 13.9 g/dL Low 14.0-18.0 [facility] Comment on above: Performed By: #### L CBC #### [place] [address] MCH (RBC) [Entitic mass] 31.3 pg High 27.0-31.0 [facility] Comment on above: Performed By: #### L CBC #### [facility] [address] [place], [place] [address] MCHC (RBC) [Mass/Vol] 33.6 % Normal 32.0-36.0 [facility] Comment on above: Performed By: #### L CBC #### [facility] [address] [place], [place] [address] MCV (RBC) [Entitic vol] 93.2 fL Normal 80.0-94.0 [facility] Comment on above: Performed By: #### L CBC #### [facility] [address] [place] [address] Platelet mean volume (Bld) [Entitic vol] 10.5 fL Normal 7.1-10.5 [facility] Comment on above: Performed By: #### L CBC #### [facility] [address] [place] [address] Platelets (Bld) [#/Vol] 326 thou/cmm Normal 150-400 [facility] Comment on above: Performed By: #### L CBC #### [facility] [address] [place], [place] [address] RBC (Bld) [#/Vol] 4.44 mil/cmm Low 4.60-6.20 [facility] Comment on above: Performed By: #### L CBC #### [facility] [address] [place] [address] WBC (Bld) [#/Vol] 9.2 thou/cmm Normal 4.8-10.5 [facility] Comment on above: Performed By: #### L CBC #### [facility] [address] [place], [place] [address] MDRD eGFRon 03-07-2019 GFR/1.73 sq M predicted among non-blacks MDRD (S/P/Bld) [Vol rate/Area] mL/min/{1.73_m2} Normal >60mL/min/1 .73m2 [facility] Comment on above: Result Comment: If t he patient is , multiply the result by 1.210. Performed By: #### L GFR #### [facility] [address] [place] [id number] TSHon 03-07-2019 TSH Qn 2.56 uIU/mL Normal 0.34-4.82 [facility] Comment on above: Performed By: #### L TSH #### [facility] [address] [place], [place] [address] Additional Injections: R charissa g A1 [facility] Vital Signs Date Time Vital Sign Value Performing Clinician Facility 10-06-2024 09:30-0400 Diastolic blood pressure 70 mm[Hg] Navya Sheets DO Work Phone: [facility] 10-06-2024 09:30-0400 Systolic blood pressure 132 mm[Hg] Navya Sheets DO Work Phone: [facility] 10-06-2024 09:13-0400 Body height 180.3 cm Navya Sheets DO Work Phone: [facility] 10-06-2024 09:13-0400 Body mass index (BMI) [Ratio] 30.68 kg/m2 Navya Sheets DO Work Phone: [facility] 10-06-2024 09:13-0400 Body temperature 99.19 [degF] Navya Sheets DO Work Phone: [facility] 10-06-2024 09:13-0400 Body weight 99.79 kg Navya Sheets DO Work Phone: [facility] 10-06-2024 09:13-0400 Heart rate 77 /min Navya Sheets DO Work Phone: [facility] 10-06-2024 09:13-0400 Respiratory rate 16 /min Navya Sheets DO Work Phone: [facility] 10-06-2024 09:13-0400 SaO2% (BldA) [Mass fraction] 95 % Navya Sheets DO Work Phone: [facility] 12-31-2023 10:37-0400 Body temperature 98.49 [degF] Lianet Alonzo MD Work Phone: [employer] 12-31-2023 10:37-0400 Body weight 101.33 kg [facility] 12-31-2023 10:37-0400 Diastolic blood pressure 81 mm[Hg] L[facility] 12-31-2023 10:37-0400 Heart rate 90 /min [facility]zo MD [facility] 12-31-2023 10:37-0400 Systolic blood pressure 161 mm[Hg] L[facility]et [facility]zo MD [facility] 11-23-2023 14:56-0400 Body temperature 98.4 [degF] Lianet [facility]zo MD [facility] 11-23-2023 14:56-0400 Body weight 99.29 kg Lianet Al[facility]zo MD [facility] 11-23-2023 14:56-0400 Diastolic blood pressure 93 mm[Hg] Lianet Al[facility]zo MD [facility] 11-23-2023 14:56-0400 Heart rate 78 /min Lianet Alonzo MD [facility] 11-23-2023 14:56-0400 Systolic blood pressure 147 mm[Hg] Lianet Alonzo MD Work Phone: [facility] [place] [employer] [employer] 11-23-2023 11:10-0400 Diastolic blood pressure 80 mm[Hg] Navya Sheets DO Work Phone: [facility] 11-23-2023 11:10-0400 Systolic blood pressure 130 mm[Hg] Navya Sheets DO Work Phone: [facility] 11-23-2023 10:40-0400 Body height 180.3 cm Navya Sheets DO Work Phone: [facility] 11-23-2023 10:40-0400 Body mass index (BMI) [Ratio] 30.4 kg/m2 Navya Sheets DO Work Phone: [facility] 11-23-2023 10:40-0400 Body temperature 98.2 [degF] Navya Sheets DO Work Phone: [facility] 11-23-2023 10:40-0400 Body weight 98.88 kg Navya Sheets DO Work Phone: [facility] 11-23-2023 10:40-0400 Heart rate 86 /min Navya Sheets DO Work Phone: [facility] 11-23-2023 10:40-0400 Respiratory rate 16 /min Navya Sheets DO Work Phone: [facility] 11-23-2023 10:40-0400 SaO2% (BldA) [Mass fraction] 94 % Navya Sheets DO Work Phone: [facility] 10-23-2023 13:48-0400 Body height 180.3 cm Navya Sheets DO Work Phone: [facility] 10-23-2023 13:48-0400 Body mass index (BMI) [Ratio] 29.99 kg/m2 Navya Sheets DO Work Phone: [facility] 10-23-2023 13:48-0400 Body temperature 98.4 [degF] Navya Sheets DO Work Phone: [facility] 10-23-2023 13:48-0400 Body weight 97.52 kg Navya Sheets DO Work Phone: [facility] 10-23-2023 13:48-0400 Diastolic blood pressure 78 mm[Hg] Navya Sheets DO Work Phone: [facility] 10-23-2023 13:48-0400 Heart rate 83 /min Navya Sheets DO Work Phone: [facility] 10-23-2023 13:48-0400 Respiratory rate 16 /min Navya Sheets DO Work Phone: [facility] 10-23-2023 13:48-0400 SaO2% (BldA) [Mass fraction] 97 % Navya Sheets DO Work Phone: [facility] 10-23-2023 13:48-0400 Systolic blood pressure 122 mm[Hg] Navya Sheets DO Work Phone: [facility] 08-21-2023 10:15-0400 Diastolic blood pressure 90 mm[Hg] Navya Sheets DO Work Phone: [facility] 08-21-2023 10:15-0400 Systolic blood pressure 126 mm[Hg] Navya Sheets DO Work Phone: [facility] 08-21-2023 09:48-0400 Body height 180.3 cm Navya Sheets DO Work Phone: [facility] 08-21-2023 09:48-0400 Body mass index (BMI) [Ratio] 29.99 kg/m2 Navya Sheets DO Work Phone: [facility] 08-21-2023 09:48-0400 Body temperature 98.4 [degF] Navya Sheets DO Work Phone: [facility] 08-21-2023 09:48-0400 Body weight 97.52 kg Navya Sheets DO Work Phone: [facility] 08-21-2023 09:48-0400 Heart rate 71 /min Navya Sheets DO Work Phone: [facility] 08-21-2023 09:48-0400 Respiratory rate 16 /min Navya Sheets DO Work Phone: [facility] 08-21-2023 09:48-0400 SaO2% (BldA) [Mass fraction] 94 % Navya Sheets DO Work Phone: [facility] 04-23-2023 08:43-0500 Body height 180.3 cm Jed Bustillos MD Work Phone: [facility] 04-23-2023 08:43-0500 Body temperature 98.29 [degF] Jed Bustillos MD Work Phone: [facility] 04-23-2023 08:43-0500 Body weight 100.25 kg Jed Bustillos MD Work Phone: [facility] 09-22-2022 08:30-0400 Diastolic blood pressure 70 mm[Hg] Navya Sheets DO Work Phone: [facility] 09-22-2022 08:30-0400 Systolic blood pressure 112 mm[Hg] Navya Sheets DO Work Phone: [facility] 09-22-2022 08:01-0400 Body height 180.3 cm Navya Sheets DO Work Phone: [facility] 09-22-2022 08:01-0400 Body temperature 98.1 [degF] Navya Sheets DO Work Phone: [facility] 09-22-2022 08:01-0400 Body weight 98.52 kg Navya Sheets DO Work Phone: [facility] 09-22-2022 08:01-0400 Heart rate 73 /min Navya Sheets DO Work Phone: [facility] 09-22-2022 08:01-0400 Respiratory rate 16 /min Navya Sheets DO Work Phone: [facility] 09-22-2022 08:01-0400 SaO2% (BldA) [Mass fraction] 94 % Navya Sheets DO Work Phone: [facility] NEGATED: Highlighted [id number] 09:14-0400 Body height 180.34 cm [facility] Work Phone: NEGATED: Highlighted [id number] 09:14-0400 Body height 180 cm [facility] Work Phone: NEGATED: Highlighted [id number] 09:14-0400 Body mass index (BMI) [Ratio] 35.69 kg/m2 [facility]: NEGATED: Highlighted [id number] 09:14-0400 [facility] NEGATED: Highlighted [id number] 09:14-0400 Body [facility]: NEGATED: Highlighted [id number] 21:01-0400 Body height 180.34 cm Pasquale Janene AT [facility] Work Phone: NEGATED: Highlighted [id number] 21:01-0400 Body height 180 cm Pasquale Janene AT [facility] Work Phone: NEGATED: Highlighted [id number] 21:01-0400 Body mass index (BMI) [Ratio] 35.69 kg/m2 Pasquale Janene AT [facility] Work Phone: NEGATED: Highlighted [id number] 21:01-0400 Body temperature 98.7 [degF] Pasquale Kelbach AT [facility] Work Phone: NEGATED: Highlighted [id number] 21:01-0400 Body temperature 98.78 [degF] Pasquale Kelbach AT [facility] Work Phone: NEGATED: Highlighted [id number] 21:01-0400 Body weight 115.67 kg Pasquale Kelbach AT [facility] Work Phone: NEGATED: Highlighted [id number] 21:01-0400 Body weight 116 kg Pasquale Jpbach AT [facility] Work Phone: NEGATED: Highlighted [id number] 10:22-0400 Body height 180.34 cm Navya Blackert [employer] [facility] Work Phone: NEGATED: Highlighted [id number] 10:22-0400 Body height 180 cm Navya Blackert [employer] [facility] Work Phone: NEGATED: Highlighted [id number] 10:22-0400 Body mass index (BMI) [Ratio] 35.69 kg/m2 Navya Blackert [employer] [facility] Work Phone: NEGATED: Highlighted [id number] 10:22-0400 Body weight 115.67 kg Navya Blackert [employer] [facility] Work Phone: NEGATED: Highlighted [id number] 10:22-0400 Body weight 116 kg Navya Blackert [employer] [facility] Work Phone: NEGATED: Highlighted [id number] 10:49-0500 Body height 180.34 cm Tamra Andres [employer] [facility] Work Phone: NEGATED: Highlighted [id number] 10:49-0500 Body height 180 cm Tamra Andres [employer] [facility] Work Phone: NEGATED: Highlighted [id number] 10:49-0500 Body mass index (BMI) [Ratio] 31.49 kg/m2 Tamra Andres [employer] [facility] Work Phone: NEGATED: Highlighted [id number] 10:49-0500 Body weight 102.06 kg Tamra Andres [employer] [facility] Work Phone: NEGATED: Highlighted [id number] 10:49-0500 Body weight 102 kg Tamra Andres [employer] [facility] Work Phone: Encounters Encounter Date Encounter Type Care Provider Facility Start: 12-12-2024 ambulatory Navya Rodríguez Facilit y:[facility] Start: 10-31-2024 End: 10-31-2024 Clinical Support Mda Lab Provider [facility] Comment on above: Arrived Start: 10-31-2024 End: 10-31-2024 ambulatory UNKNOWN PROVIDER Facility:[facility] Start: 10-30-2024 End: 10-30-[address] Navya Rodríguez DO Work Phone: -Radiology [facility] Start: 10-30-2024 End: 10-30-[address] Michael King MD -Radiology [facility] Work Phone: Start: 10-30-2024 End: 10-30-2024 ambulatory Michael King Facility:[facility] Start: 10-27-2024 End: 10-27-2024 ambulatory Navya Rodríguez DO Work Phone: [facility] Start: 10-27-2024 End: 10-27-2024 Follow-up encounter Navya Rodríguez DO Work Phone: [facility] Comment on above: ED Follow-up (Angelina Cardenas 10/24/2024) Start: 10-24-2024 End: 10-24-2024 Emergency department patient visit NAVYA RODRÍGUEZ Facility:[facility] Start: 10-11-2024 End: 10-13-2024 Refill Charleen Maravilla APRN.[employer] OPER[employer] Work Phone: [facility] Comment on above: Refill Request Start: 10-10-2024 End: 10-10-2024 ambulatory NAVYA C MARCOS Facility:[facility] Start: 10-06-2024 End: 10-06-2024 Patient encounter procedure Navya C Sheets DO Work Phone: [facility] Comment on above: Chronic left shoulde r pain (Primary Dx); Numbness and tingling in left hand; Hyperlipidemia, mixed; Screening for prostate cancer; Obesity, Class I, BMI 30-34.9 Start: 10-06-2024 End: 10-06-2024 ambulatory NAVYA C SHEETS Facility:[facility] Start: 09-29-2024 End: 10-14-2024 Telephone encounter Lianet Alonzo MD Work Phone: [facility] (Arthritis) Start: 09-27-2024 End: 09-29-2024 ambulatory Lianet Alonzo MD Work Phone: [facility] (Arthritis) Comment on above: next step in prednis one taper Start: 09-27-2024 End: 09-29-2024 E-mail encounter from caregiver Lianet Alonzo MD Work Phone: [facility] (Arthritis) Start: 09-05-2024 End: 09-05-2024 Telephone encounter Navya C Sheets DO Work Phone: [facility] Comment on above: Patient Update Start: 08-28-2024 End: 08-28-2024 Refill Navya C Sheets DO Work Phone: [facility] Comment on above: Refill Request Start: 08-03-2024 End: 08-05-2024 Refill Navya C Sheets DO Work Phone: [facility] Comment on above: Refill Request Start: 07-03-2024 End: 07-03-2024 Orders Only Lianet Alonzo MD Work Phone: [facility] (Arthritis) Start: 07-02-2024 End: 07-02-2024 ambulatory NAVYA C SHEETS Facility:[facility] Start: 05-14-2024 End: 05-14-2024 Refill Navya C Sheets DO Work Phone: [facility] Comment on above: Refill Request Start: 03-21-2024 End: 03-21-2024 Refill Navya C Sheets DO Work Phone: [facility] Comment on above: Refill Request Start: 03-02-2024 End: 03-03-2024 ambulatory Lianet Alonzo MD Work Phone: [facility] (Arthritis) Comment on above: tapering off prednis one Start: 03-02-2024 End: 03-03-2024 E-mail encounter from caregiver Lianet lAonzo MD Work Phone: [facility] (Arthritis) Start: 03-01-2024 End: 03-01-2024 Letter encounter Lianet Alonzo MD Work Phone: [facility] Start: 02-19-2024 End: 02-19-2024 Telephone encounter Navya C Sheets DO Work Phone: [facility] Comment on above: Medication Problem Start: 02-06-2024 End: 02-06-2024 Refill Navya C Sheets DO Work Phone: [facility] Comment on above: Refill Request Start: 01-30-2024 End: 02-25-2024 Telephone encounter Navya C Sheets DO Work Phone: [facility] Comment on above: Forms (Signature [facility] Clearance to have all remaining upper and lower teeth removed with immediate implant placement, requires IV sedation) Start: 01-01-2024 End: 01-01-2024 Refill Navya C Sheets DO Work Phone: [facility] Comment on above: Refill Request Start: 12-31-2023 End: 12-31-2023 Clinical Support Pathology Provider [facility] Comment on above: Arrived Start: 12-31-2023 End: 12-31-2023 Office outpatient visit 25 minutes Lianet Alonzo MD Work Phone: [facility] (Arthritis) Comment on above: Polymyalgia rheumati ca (HCC) (Primary Dx) Start: 12-31-2023 End: 12-31-2023 ambulatory UNKNOWN PROVIDER Facility:[facility] Start: 12-28-2023 End: 12-28-2023 ambulatory Navya C Sheets DO Work Phone: [facility] Comment on above: leg cramps Start: 12-25-2023 End: 12-25-2023 Telephone encounter Navya C Sheets DO Work Phone: [facility] Comment on above: Results Start: 12-17-2023 End: 12-18-2023 Refill Navya C Sheets DO Work Phone: [facility] Comment on above: Refill Request Start: 12-08-2023 End: 12-10-2023 ambulatory Lianet Alonzo MD Work Phone: [facility] (Arthritis) Comment on above: checking in after in itial visit on 11/23/2023 Start: 12-08-2023 End: 12-10-2023 E-mail encounter from caregiver Lianet Alonzo MD Work Phone: [facility] (Arthritis) Start: 11-23-2023 ambulatory UNKNOWN PROVIDER Facili ty:[facility] Start: 11-23-2023 End: 11-23-2023 Office outpatient new 45 minutes Lianet Alonzo MD Work Phone: [facility] (Arthritis) Comment on above: Polyarthralgia (Prim tashi Dx); Hx of degenerative disc disease Start: 11-23-2023 End: 11-23-2023 ambulatory LIANET ALONZO [facility] Start: 11-23-2023 End: 11-23-2023 Patient encounter procedure Navya C Sheets DO Work Phone: [facility] Comment on above: Arthralgia, unspecif ied joint (Primary Dx); Encounter for immunization Start: 11-23-2023 End: 11-23-2023 ambulatory [facility] Start: 11-15-2023 End: 11-15-2023 Telephone encounter Navya C Sheets DO Work Phone: [facility] Comment on above: Forms ([facility] Visit Date 11/12/23) Start: 11-13-2023 End: 11-13-2023 Refill Navya C Sheets DO Work Phone: [facility] Comment on above: Refill Request Start: 10-23-2023 End: 10-23-2023 Subsequent hospital visit by physician [facility] Comment on above: Bilateral hip pain [ M25.551, M25.552] Start: 10-23-2023 End: 10-23-2023 Patient encounter procedure Navya C Sheets DO Work Phone: [facility] Comment on above: Arthralgia, unspecif ied joint (Primary Dx); Bilateral hip pain; Hyperlipidemia, mixed; Screening for prostate cancer Start: 10-15-2023 Refill Navya C She ets DO Work Phone: [facility] Comment on above: Refill Request Start: 10-04-2023 Refill Navya C She ets DO Work Phone: [facility] Comment on above: Refill Request Start: 09-27-2023 Telephone encounter Navya C Sheets DO Work Phone: [facility] Comment on above: Electronic Communica tion (PT. Orders form ) Start: 09-18-2023 Refill Navya C Anastasiia ets DO Work Phone: [facility] Comment on above: Refill Request Start: 09-04-2023 Telephone encounter Navya C Sheets DO Work Phone: [facility] Comment on above: Forms ([facility] visit date 08/30/23) Start: 08-29-2023 End: 08-29-2023 ambulatory Milagro Isabel AIRBRUSH ARTIST [facility] Comment on above: EMG Start: 08-29-2023 End: 08-29-2023 Patient encounter procedure Emg 2 Neur Fhc Stro (Max Weight: 300) Work Phone: Neurology Start: 08-21-2023 End: 08-21-2023 Patient encounter procedure Navya C Sheets DO Work Phone: [facility] Comment on above: Poison sai (Primary Dx); Numbness and tingling in left hand; Chronic pain of both shoulders; Hyperlipidemia, mixed; Screening for prostate cancer; Left ankle tendonitis; Elevated blood pressure reading without diagnosis of hypertension Start: 07-27-2023 Refill Navya C Anastasiia ets DO Work Phone: [facility] Comment on above: Refill Request Start: 07-23-2023 Refill Navya C She ets DO Work Phone: [facility] Comment on above: Refill Request Start: 04-23-2023 End: 04-23-2023 Patient encounter procedure Jed Bustillos MD Work Phone: [facility] Comment on above: Trigger finger, righ t middle finger Start: 02-12-2023 Refill Navya C Anastasiia ets DO Work Phone: [facility] Comment on above: Refill Request Start: 01-31-2023 ambulatory Luna Real [facility] Start: 11-11-2022 Refill Charleen A Esdrasd en MATRIX DRIER TENDER.GLYCERINE PLANT OPERATOR Work Phone: [facility] Comment on above: Refill Request Start: 11-01-2022 Telephone encounter Navya C Sheets DO Work Phone: [facility] Comment on above: Results Start: 10-17-2022 Refill Navya C Anastasiia ets DO Work Phone: [facility] Comment on above: Refill Request Start: 09-25-2022 Telephone encounter Navya C Sheets DO Work Phone: [facility] Comment on above: Results Start: 09-22-2022 End: 09-22-2022 Patient encounter procedure Navya C Sheets DO Work Phone: [facility] Comment on above: Well adult exam ([facility] Dx); Chronic insomnia; Trigger finger, right middle finger; Migraine without aura and without status migrainosus, not intractable; Screening for lipid disorders; Screening for prostate cancer; Screening for colon cancer; Screening for blood disease; Screening for endocrine, metabolic and immunity disorder; Depressive disorder; Hyperlipidemia, mixed; Chronic midline low back pain with bilateral sciatica; Encounter for immunization; Obesity, Class I, BMI 30-34.9 Start: 09-22-2022 End: 09-22-2022 Patient encounter status Navya C Sheets DO Work Phone: [facility] Work Phone: Start: 09-19-2022 Refill Navya C She ets DO Work Phone: [facility] Comment on above: Refill Request Start: 09-11-2022 Telephone encounter Navya C Sheets DO Work Phone: [facility] Comment on above: Patient Question Start: 08-20-2022 Refill Navya C She ets DO Work Phone: [facility] Comment on above: Refill Request Start: 07-11-2022 [facility] Start: 03-15-2022 Refill Navya C She ets DO Work Phone: [facility] Comment on above: Refill Request Start: 02-23-2022 End: 02-23-2022 ambulatory [facility] Work Phone: Start: 02-23-2022 End: 02-23-2022 Patient encounter procedure [facility] Start: 12-09-2021 Telephone encounter Charleen Maravilla APRN.GLYCERINE PLANT OPERATOR Work Phone: [facility] Comment on above: No Show (First no sh ow in 365 days.) Start: 09-20-2021 Refill Navya C She ets DO Work Phone: [facility] Comment on above: Refill Request Start: 09-04-2021 Refill Navya C She ets DO Work Phone: [facility] Comment on above: Refill Request Start: 08-22-2021 Refill Navya C She ets DO Work Phone: [facility] Comment on above: Refill Request Start: 07-14-2021 ambulatory Navya Laurent ets DO Work Phone: [facility] Comment on above: ER F/U Start: 06-29-2021 Refill Navya Arroyo She ets DO Work Phone: [facility] Comment on above: Refill Request Start: 06-20-2021 End: 06-20-2021 Subsequent hospital visit by physician Marimar Mooney Work Phone: [facility] Comment on above: Arrived Start: 06-20-2021 End: 06-20-2021 Pt evaluation Marimar Mooney APRN-GLYCERINE PLANT OPERATOR Work Phone: [facility] Work Phone: Start: 05-20-2021 End: 05-20-2021 Pt evaluation Marimar Mooney APRN-GLYCERINE PLANT OPERATOR Work Phone: [facility] Work Phone: Procedures Date Procedure Procedure Detail Performing Clinician Start: 10-30-2024 X-ray of cervical spine Dr. Navya Rodríguez DO Work Phone: Start: 10-10-2024 Lipid 1996 panel - S mina or Plasma Charleen Maravilla MATRIX DRIER TENDER.GLYCERINE PLANT OPERATOR Work Phone: Start: 12-31-2023 Assay of magnesium Kandi Alonzo MD Work Phone: Start: 12-31-2023 C-reactive protein Kandi Alonzo MD Work Phone: Start: 11-23-2023 C-reactive protein Kandi Alonzo MD Work Phone: Start: 11-23-2023 Creatine kinase total B dinorah Alonzo MD Work Phone: Start: 10-24-2023 Lipid 1996 panel - S mina or Plasma Navya Rodríguez DO Work Phone: Start: 08-29-2023 Nerve conduction letty dies 5-6 studies Navya C Sheets DO Work Phone: Start: 04-23-2023 Injection 1 tendon sheath/ligament aponeurosis Jed Bustillos MD Work Phone: Start: 09-22-2022 Lipid 1996 panel - S mina or Plasma Luna Real MA Start: 06-23-2021 End: 06-23-2021 BP scrn no perf at interval Marin Ibrahim MD Work Phone: Start: 06-23-2021 End: 06-23-2021 Calc BMI abv up hasmukh f/u Marin laughlin MD Work Phone: Start: 06-23-2021 End: 06-23-2021 Current tobacco non-user cad cap copd pv dm Marin Ibrahim MD Work Phone: Start: 06-23-2021 End: 06-23-2021 Docrev cur meds by elig clin Marin Ibrahim MD Work Phone: Start: 06-23-2021 End: 06-23-2021 Pain doc pos and plan Marin Ibrahim MD Work Phone: Start: 06-23-2021 End: 06-23-2021 Patient encounter procedure Marin Ibrahim MD Work Phone: Start: 06-21-2021 End: 06-21-2021 Documentation of current medications Carley Arreaga Start: 06-21-2021 End: 06-22-2021 BP scrn no perf at interval Kelli Richard PA-C Work Phone: Start: 06-21-2021 End: 06-22-2021 Calc BMI out nrm hasmukh nof/u Kelli Richard PA-C Work Phone: Start: 06-21-2021 End: 06-22-2021 Current tobacco non-user cad cap copd pv dm Kelli Richard PA-C Work Phone: Start: 06-21-2021 End: 06-22-2021 [place] PA-C Work Phone: Start: 06-21-2021 End: 06-22-2021 Pain doc pos and plan Kelli Richard PA-C Work Phone: Start: 06-21-2021 End: 06-22-2021 Patient encounter procedure Kelli Richard PA-C Work Phone: Start: 06-20-2021 Dup-scan xtr veins unilateral/limited study Marimar Mooney Work Phone: Start: 06-20-2021 End: 06-20-2021 Documentation of current medications Pasquale Watters AT Start: 06-20-2021 End: 06-21-2021 BP scrn no perf at interval Marimar Mooney MATRIX DRIER TENDER-GLYCERINE PLANT OPERATOR Work Phone: Start: 06-20-2021 End: 06-21-2021 Calc BMI abv up hasmukh f/u Marimar miller MATRIX DRIER TENDER-GLYCERINE PLANT OPERATOR Work Phone: Start: 06-20-2021 End: 06-21-2021 Current tobacco non-user cad cap copd pv dm Marimar Mooney MATRIX DRIER TENDER-GLYCERINE PLANT OPERATOR Work Phone: Start: 06-20-2021 End: 06-21-2021 [place] Mooney MATRIX DRIER TENDER-GLYCERINE PLANT OPERATOR Work Phone: Start: 06-20-2021 End: 06-21-2021 Pain doc pos and plan Marimar Mooney MATRIX DRIER TENDER-GLYCERINE PLANT OPERATOR Work Phone: Start: 06-20-2021 End: 06-21-2021 Patient encounter procedure Marimar Mooney MATRIX DRIER TENDER-GLYCERINE PLANT OPERATOR Work Phone: Start: 05-20-2021 End: 05-20-2021 BP scrn no perf at interval Marimar Mooney MATRIX DRIER TENDER-GLYCERINE PLANT OPERATOR Work Phone: Start: 05-20-2021 End: 05-20-2021 Calc BMI abv up hasmukh f/u Marimar longoy MATRIX DRIER TENDER-GLYCERINE PLANT OPERATOR Work Phone: Start: 05-20-2021 End: 05-20-2021 Current tobacco non-user cad cap copd pv dm Marimar A Gonzalokrisyfn MATRIX DRIER TENDER-GLYCERINE PLANT OPERATOR Work Phone: Start: 05-20-2021 End: 05-20-2021 [place] Marimar A Silvia MATRIX DRIER TENDER-GLYCERINE PLANT OPERATOR Work Phone: Start: 05-20-2021 End: 05-20-2021 Osteoarthritis symptoms&funcjal status asses Marimar A Gonzalogeneva MATRIX DRIER TENDER-GLYCERINE PLANT OPERATOR Work Phone: Start: 05-20-2021 End: 05-20-2021 Pain doc pos and plan Marimar A Silvia MATRIX DRIER TENDER-GLYCERINE PLANT OPERATOR Work Phone: Start: 05-20-2021 End: 05-20-2021 Patient encounter procedure Marimar A Silvia MATRIX DRIER TENDER-GLYCERINE PLANT OPERATOR Work Phone: Start: 10-05-2017 History of repair of musculotendinous cuff of shoulder Status post left rotator cuff repair Tamra Andres AIRBRUSH ARTIST NEGATED: Highlighted rowStart: 06-23-2021 End: 06-23-2021 Documentation of current medications Carley Arreaga NEGATED: Highlighted rowStart: 06-21-2021 End: 06-21-2021 Documentation of current medications Pasquale TORO NEGATED: Highlighted rowStart: 06-20-2021 End: 06-20-2021 Documentation of current medications Navya Yañez LPN NEGATED: Highlighted rowStart: 05-20-2021 End: 05-20-2021 Documentation of current medications Tamra Andres AIRBRUSH ARTIST Plan of Treatment Date Care Activity Detail Author Start: 11-19-2038 RSV vaccine (adult) (1 - 1-dose 75+ series) RSV vaccine (adult) (1 - 1-dose 75+ series) [facility] Start: 10-24-2034 Urine microalbumin profile DTaP,Tdap,Td Vaccine (3 - Td or Tdap) [facility] Start: 10-10-2029 Lipid panel [facility] Start: 10-10-2029 Prostate specific antigen measurement Prostate Cancer Screening Discussion [facility] Start: 10-23-2028 Lipid panel [facility] Start: 10-23-2028 Prostate specific antigen measurement Prostate Cancer Screening Discussion [facility] Start: 10-11-2027 Diabetes Screening Diabetes Screenin g [facility] Start: 09-23-2027 Lipid 1996 panel - Serum or Plasma Lipid Screening [facility] Start: 09-23-2027 Lipid panel Lipid Screening [facility] Start: 09-23-2027 LIPID SCREEN LIPID SCREEN [facility] Start: 09-23-2027 PROSTATE CANCER SCREENING DISCUSSION PROSTATE CANCER SCREENING DISCUSSION [facility] Start: 09-23-2027 Prostate specific antigen measurement Prostate Cancer Screening Discussion [facility] Start: 01-28-2027 DTaP/Tdap/Td vaccine (2 - Td or Tdap) DTaP/Tdap/Td vaccine (2 - Td or Tdap) [facility] Start: 01-28-2027 Tetanus vaccination Tetanus (T d or Tdap) Booster [facility] Start: 01-28-2027 Urine microalbumin profile [facility] Start: 12-30-2026 Diabetes Screening Diabetes Screenin g [facility] Start: 10-23-2026 Diabetes Screening Diabetes Screenin g [facility] Start: 10-28-2025 Screening for malign ant neoplasm of colon [facility] Start: 10-21-2025 COLOGUARD (FIT-DNA) COLOGUARD (FIT-D NA) [facility] Start: 10-21-2025 COLORECTAL CANCER SCREENING COLORECTAL CANCER SCREENING [facility] Start: 10-21-2025 Screening for malign ant neoplasm of colon [facility] Start: 10-06-2025 Annual PCP Team Lead Technical Writer dylan Disease Visit Annual PCP Team Chronic Disease Visit [facility] Start: 10-01-2025 PROSTATE CANCER SCREENING DISCUSSION PROSTATE CANCER SCREENING DISCUSSION [facility] Start: 09-22-2025 DIABETES SCREEN DIABETES SCREEN [facility] Start: 09-22-2025 Diabetes Screening Diabetes Screenin g [facility] Start: 07-02-2025 Annual PCP Team Lead Technical Writer dylan Disease Visit Annual PCP Team Chronic Disease Visit [facility] Start: 01-02-2025 End: 01-02-2025 Patient encounter procedure 01/02/2025 8:40 AM EDT Office Visit [facility] [address], [place] [id number] Navya Rodríguez DO [address] [place] [address] [facility] Comment on above: [facility] Start: 12-10-2024 Influenza vaccination Influenza Vacc ine (#1) [facility] Start: 11-22-2024 Annual PCP Team Lead Technical Writer dylan Disease Visit Annual PCP Team Chronic Disease Visit [facility] Start: 11-22-2024 RSV Vaccine (1 - Ris k 60-74 years 1-dose series) RSV Vaccine (1 - Risk 60-74 years 1-dose series) [facility] Comment on above: Postponed from 11/19 (Declined at this time) Start: 11-22-2024 Shingrix Vaccine (1 of 2) Shingrix Vaccine (1 of 2) [facility] Comment on above: Postponed from 11/19 (Declined at this time) Start: 11-10-2024 Influenza vaccination Influenza Vacc ine (#1) [facility] Start: 10-22-2024 Annual PCP Team Lead Technical Writer dylan Disease Visit Annual PCP Team Chronic Disease Visit [facility] Start: 10-06-2024 End: 10-06-2024 Patient encounter procedure 10/06/2024 9:20 AM EDT Office Visit [facility] [address] [place] [address] Navya Rodríguez DO [address] [place] [address] Both arms and shoulders are going compleely numb [facility] Comment on above: Both arms and should ers are going compleely numb Start: 08-20-2024 Annual PCP Team Lead Technical Writer dylan Disease Visit Annual PCP Team Chronic Disease Visit [facility] Start: 07-11-2024 DIABETES SCREEN DIABETES SCREEN [facility] Start: 05-23-2024 End: 05-23-2024 Patient encounter procedure [facility] Comment on above: 6 month follow up ht n LMTRS 05/07/2024 @ 9:50 am 6 month follow up htn Start: 02-21-2024 End: 02-21-2024 Patient encounter procedure 02/21/2024 4:20 PM EST Office Visit [facility] [address] [place] [address] Charleen Maravilla, MATRIX DRIER TENDER.GLYCERINE PLANT OPERATOR [address] [place] [address] Pre-Surgical Clearance Dental surgery 02/24 [facility] Comment on above: Pre-Surgical Clearan ce Dental surgery 02/24 Start: 02-12-2024 DIABETES SCREEN DIABETES SCREEN [facility] Start: 12-31-2023 End: 12-31-2023 Patient encounter procedure 12/31/2023 11:00 AM EDT Office Visit [facility] Rheumatology (Arthritis) [address] [place], [place] [id number] Lianet Alonzo MD [address] [place] [address] [facility] Rheumatology (Arthritis) Start: 12-11-2023 Influenza vaccination Influenza Vacc ine (#1) [facility] Start: 11-23-2023 End: 11-23-2023 Clinical Support 11/23/2023 4:15 PM EDT Clinical Support [facility] [address] [place], [place] [id number] Provider, Pathology Arrived [facility] Comment on above: Arrived Start: 11-23-2023 End: 11-22-2024 XR Hand Arthritis XR ARTHRITIS SURVEY HAND/WRIST Imaging Routine Polyarthralgia Expected: 11/23/2023, Expires: 11/22/2024 [facility] Comment on above: Expected: 11/23/2023 , Expires: 11/22/2024 Start: 11-23-2023 End: 11-23-2023 Patient encounter procedure 11/23/2023 10:40 AM EDT Office Visit [facility] [address] [place] [address] Navya Rodríguez, DO [address] [place] [address] joint pain [facility] Comment on above: joint pain Start: 2023 Hepatitis B (HBV) Vaccine (optional start 60+ years) Hepatitis B (HBV) Vaccine (optional start 60+ years) [facility] Start: 11-11-2023 COVID-19 Vaccine ( season) COVID-19 Vaccine ( season) [facility] Start: 11-11-2023 COVID-19 Vaccine ( season) COVID-19 Vaccine () [facility] Start: 11-11-2023 Influenza vaccination C [facility] Start: 10-23-2023 End: 10-22-2024 RANDI BY IFA SCREEN RANDI BY IFA SCREEN Lab Routine Arthralgia, unspecified joint Expected: 10/23/2023, Expires: 10/22/2024 [facility] Comment on above: Expected: 10/23/2023 , Expires: 10/22/2024 Start: 10-23-2023 End: 01-22-2024 Borrelia burgdorferi IgG and IgM panel - Serum LYME AB LATE >30 DAYS SYMPTOMS Lab Routine Arthralgia, unspecified joint Expected: 10/23/2023, Expires: 01/22/2024 [facility] Work Phone: Comment on above: Expected: 10/23/2023 , Expires: 01/22/2024 Start: 10-23-2023 End: 01-22-2024 C reactive protein [Mass/volume] in Serum or Plasma C-REACTIVE PROTEIN Lab Routine Arthralgia, unspecified joint Expected: 10/23/2023, Expires: 01/22/2024 [facility] Comment on above: Expected: 10/23/2023 , Expires: 01/22/2024 Start: 10-23-2023 End: 01-22-2024 CBC panel - Blood by Automated count COMPLETE BLOOD COUNT Lab Routine Hyperlipidemia, mixed Expected: 10/23/2023, Expires: 01/22/2024 [facility] Comment on above: Expected: 10/23/2023 , Expires: 01/22/2024 Start: 10-23-2023 End: 01-22-2024 Cobalamin (Vitamin B12) [Mass/volume] in Serum or Plasma VITAMIN B12 Lab Routine Arthralgia, unspecified joint Expected: 10/23/2023, Expires: 01/22/2024 [facility] Comment on above: Expected: 10/23/2023 , Expires: 01/22/2024 Start: 10-23-2023 End: 01-22-2024 Comprehensive metabolic 2000 panel - Serum or Plasma COMPREHENSIVE METABOLIC PANEL Lab Routine Hyperlipidemia, mixed Expected: 10/23/2023, Expires: 01/22/2024 [facility] Comment on above: Expected: 10/23/2023 , Expires: 01/22/2024 Start: 10-23-2023 End: 01-22-2024 Erythrocyte sedimentation rate SEDIMENTATION RATE, WESTERGREN Lab Routine Arthralgia, unspecified joint Expected: 10/23/2023, Expires: 01/22/2024 [facility] Comment on above: Expected: 10/23/2023 , Expires: 01/22/2024 Start: 10-23-2023 End: 01-22-2024 Lipid 1996 panel - Serum or Plasma LIPID PANEL BASIC Lab Routine Hyperlipidemia, mixed Expected: 10/23/2023, Expires: 01/22/2024 [facility] Comment on above: Expected: 10/23/2023 , Expires: 01/22/2024 Start: 10-23-2023 End: 01-22-2024 PSA/PROSTATE SPECIFIC ANTIGEN SCREENING PSA/PROSTATE SPECIFIC ANTIGEN SCREENING Lab Routine Screening for prostate cancer Expected: 10/23/2023, Expires: 01/22/2024 [facility] Comment on above: Expected: 10/23/2023 , Expires: 01/22/2024 Start: 10-23-2023 End: 01-22-2024 Rheumatoid factor [Units/volume] in Serum or Plasma RHEUMATOID FACTOR Lab Routine Arthralgia, unspecified joint Expected: 10/23/2023, Expires: 01/22/2024 [facility] Comment on above: Expected: 10/23/2023 , Expires: 01/22/2024 Start: 10-23-2023 End: 01-22-2024 Thyrotropin [Units/volume] in Serum or Plasma THYROID STIMULATING HORMONE Lab Routine Arthralgia, unspecified joint Expected: 10/23/2023, Expires: 01/22/2024 [facility] Comment on above: Expected: 10/23/2023 , Expires: 01/22/2024 Start: 09-23-2023 ANNUAL PCP TEAM FACILITY WORKER DYLAN DISEASE VISIT ANNUAL PCP TEAM CHRONIC DISEASE VISIT [facility] Start: 09-23-2023 BP CONTROLLED (<130/80) BP CONTROLLE D (<130/80) [facility] Start: 09-23-2023 SHINGRIX VACCINE (1 of 2) SHINGRIX VACCINE (1 of 2) [facility] Comment on above: Postponed from 11/19 (Declined at this time) Start: 08-21-2023 End: 2023 CBC panel - Blood by Automated count COMPLETE BLOOD COUNT Lab Routine Hyperlipidemia, mixed Expected: 08/21/2023, Expires: 2023 [facility] Work Phone: Comment on above: Expected: 08/21/2023 , Expires: 2023 Start: 08-21-2023 End: 2023 Comprehensive metabolic 2000 panel - Serum or Plasma COMPREHENSIVE METABOLIC PANEL Lab Routine Hyperlipidemia, mixed Expected: 08/21/2023, Expires: 2023 [facility] Comment on above: Expected: 08/21/2023 , Expires: 2023 Start: 08-21-2023 End: 2023 Lipid 1996 panel - Serum or Plasma LIPID PANEL BASIC Lab Routine Hyperlipidemia, mixed Expected: 08/21/2023, Expires: 2023 [facility] Comment on above: Expected: 08/21/2023 , Expires: 2023 Start: 08-21-2023 End: 2023 PSA/PROSTATE SPECIFIC ANTIGEN SCREENING PSA/PROSTATE SPECIFIC ANTIGEN SCREENING Lab Routine Screening for prostate cancer Expected: 08/21/2023, Expires: 2023 [facility] Comment on above: Expected: 08/21/2023 , Expires: 2023 Start: 11-10-2022 Influenza vaccination [facility] Start: 10-29-2022 Screening for malign ant neoplasm of colon CRC Screening [facility] Start: 06-15-2022 LIPID SCREEN LIPID SCREEN [facility] Start: 05-20-2022 ANNUAL PCP TEAM FACILITY WORKER DYLAN DISEASE VISIT ANNUAL PCP TEAM CHRONIC DISEASE VISIT [facility] Start: 05-20-2022 BP CONTROLLED (<130/80) BP CONTROLLE D (<130/80) [facility] Start: 05-20-2022 COVID-19 VACCINE (#1) COVID-19 VACCI NE (#1) [facility] Comment on above: Postponed from 11/19 (Declined at this time) Postponed from 05/19 (Declined at this time) Start: 05-20-2022 COVID-19 VACCINE (1) COVID-19 VACCIN E (1) [facility] Comment on above: Postponed from 11/19 (Declined at this time) Start: 02-23-2022 Procedure [facility] Work Phone: Start: 11-10-2021 Influenza vaccination S [facility] Start: 06-23-2021 End: 06-23-2021 Patient encounter procedure Appointment [facility] Work Phone: Start: 06-20-2021 End: 06-20-2021 C-reactive protein C-reactive protein (CRP) [facility] Work Phone: Start: 06-20-2021 End: 06-20-2021 CBC W Auto Differential panel - Blood CBC with Differential [facility] Work Phone: Start: 06-20-2021 End: 06-20-2021 Dup-scan xtr veins unilateral/limited study Venous ultrasound right lower extremity [facility] Work Phone: Start: 06-20-2021 End: 06-20-2021 Sedimentation rate rbc automated Erythrocytes sedimentation rate (ESR) [facility] Work Phone: Start: 05-20-2021 End: 05-20-2021 Patient encounter procedure [facility] Work Phone: Start: 04-22-2021 COVID-19 Vaccine (3 - Booster for Moderna series) COVID-19 Vaccine (3 - Booster for Moderna series) [facility] Start: 2020 COVID-19 VACCINE (#1) COVID-19 VACCI NE (#1) [facility] Start: 11-19-2013 Shingles (RZV) Vacci ne (1 of 2) Shingles (RZV) Vaccine (1 of 2) [facility] Start: 11-19-2013 Shingles Vaccine (1 of 2) Shingles Vaccine (1 of 2) [facility] Start: 11-19-2013 SHINGRIX VACCINE (1 of 2) SHINGRIX VACCINE (1 of 2) [facility] Start: 11-19-2008 COLOGUARD (FIT-DNA) COLOGUARD (FIT-D NA) [facility] Start: 11-19-2008 Colonoscopy COLONOSCOPY [facility] Start: 11-19-2008 COLORECTAL CANCER SCREENING COLORECTAL CANCER SCREENING [facility] Start: 11-19-[address] COLONOGRAPHY [facility] Start: 11-19-2008 FECAL OCCULT BLOOD FECAL OCCULT BLOO D [facility] Start: 11-19-2008 Screening for malign ant neoplasm of colon [facility] Start: 11-19-2008 SIGMOIDOSCOPY SIGMOIDOSCOPY [facility] Start: 2003 Lipid panel Lipid screen [facility] Start: 11-19-1982 Hepatitis A (HAV) Vaccine (optional start 19+ years) Hepatitis A (HAV) Vaccine (optional start 19+ years) [facility] Start: 11-19-1981 Anxiety Screening Anxiety Screening [facility] Start: 11-19-1981 BP CONTROLLED (<130/80) BP CONTROLLE D (<130/80) [facility] Start: 11-19-1981 Hepatitis C screening Hepatitis C An tibody [facility] Start: 11-19-1981 Tdap Booster Tdap Booster [facility] Start: 11-19-1978 HIV screening [facility] Start: 1975 Depression Screen Depression Screen [facility] Start: 11-19-1969 PNEUMOCOCCAL (1 - PCV) PNEUMOCOCCAL (1 - PCV) [facility] Start: [birth year]-19-1964 COVID-19 VACCINE (#1) COVID-19 VACCI NE (#1) [facility] Start: 1965 HEPATITIS B (1 of 3 - 3-dose series) HEPATITIS B (1 of 3 - 3-dose series) [facility] Start: 1965 Hepatitis C screening Hepatitis C abi [facility] Start: 1965 Screening for malign ant neoplasm of colon Colonoscopy [facility] C-reactive protein C-REACTIVE NV OTEIN Lab Routine Polyarthralgia Ordered: 11/23/2023 [facility] Comment on above: Ordered: 11/23/2023 End: 01-09-2024 C-reactive protein C-REACTIVE PROTEIN Lab Routine Polyarthralgia 1 Occurrences starting 12/10/2023 until 01/09/2024 [facility] Comment on above: 1 Occurrences starti ng 12/10/2023 until 01/09/2024 End: 06-30-2024 C-reactive protein C-REACTIVE PROTEIN Lab Routine Polymyalgia rheumatica (HCC) 4 Occurrences starting 12/31/2023 until 06/30/2024 [facility] Comment on above: 4 Occurrences starti ng 12/31/2023 until 06/30/2024 End: 08-02-2024 C-reactive protein C-REACTIVE PROTEIN Lab Routine Polymyalgia rheumatica (HCC) 1 Occurrences starting 07/03/2024 until 08/02/2024 [facility] Comment on above: 1 Occurrences starti ng 07/03/2024 until 08/02/2024 End: 04-01-2025 C-reactive protein C-REACTIVE PROTEIN Lab Routine Polymyalgia rheumatica (HCC) 3 Occurrences starting 09/29/2024 until 04/01/2025 [facility] Comment on above: 3 Occurrences starti ng 09/29/2024 until 04/01/2025 COLOGUARD COLOGUARD Lab Ro utine Screening for colon cancer Ordered: 09/22/2022 [facility] Work Phone: Comment on above: Ordered: 09/22/2022 Creatine kinase total CREATINE K INASE Lab Routine Polyarthralgia Ordered: 11/23/2023 [employer] Work Phone: Comment on above: Ordered: 11/23/2023 Cyclic citrullinated peptide antibody CYCLIC CITRULLINATED PEPTIDE,* Lab Routine Polyarthralgia Ordered: 11/23/2023 [facility] Comment on above: Ordered: 11/23/2023 Im adm prq id subq/i m njxs 1 vaccine IMADM PRQ ID SUBQ/IM NJXS 1 VACC Immunization/Injection Routine Encounter for immunization Ordered: 09/22/2022 [facility] Work Phone: Comment on above: Ordered: 09/22/2022 Im adm prq id subq/i m njxs 1 vaccine IMADM PRQ ID SUBQ/IM NJXS 1 VACC Immunization/Injection Routine Encounter for immunization Ordered: 11/23/2023 [facility] Work Phone: Comment on above: Ordered: 11/23/2023 Immunoassay analyte qual/semiqual multiple step [facility] Comment on above: Ordered: 11/23/2023 Procedure [facility] Work Phone: Sedimentation rate r bc non-automated ERYTHROCYTE SEDIMENTATION RATE Lab Routine Polyarthralgia Ordered: 11/23/2023 [facility] Comment on above: Ordered: 11/23/2023 End: 01-09-2024 Sedimentation rate rbc non-automated ERYTHROCYTE SEDIMENTATION RATE Lab Routine Polyarthralgia 1 Occurrences starting 12/10/2023 until 01/09/2024 [facility] [employer] Work Phone: Comment on above: 1 Occurrences starti ng 12/10/2023 until 01/09/2024 End: 06-30-2024 Sedimentation rate rbc non-automated ERYTHROCYTE SEDIMENTATION RATE Lab Routine Polymyalgia rheumatica (HCC) 4 Occurrences starting 12/31/2023 until 06/30/2024 [employer] Work Phone: Comment on above: 4 Occurrences starti ng 12/31/2023 until 06/30/2024 End: 08-02-2024 Sedimentation rate rbc non-automated ERYTHROCYTE SEDIMENTATION RATE Lab Routine Polymyalgia rheumatica (HCC) 1 Occurrences starting 07/03/2024 until 08/02/2024 [employer] Work Phone: Comment on above: 1 Occurrences starti ng 07/03/2024 until 08/02/2024 End: 04-01-2025 Sedimentation rate rbc non-automated ERYTHROCYTE SEDIMENTATION RATE Lab Routine Polymyalgia rheumatica (HCC) 3 Occurrences starting 09/29/2024 until 04/01/[address] [facility] Work Phone: Comment on above: 3 Occurrences starti ng 09/29/2024 until 04/01/2025 End: 11-21-2024 XR HIP BILATERAL 5V PEL/AP/LAT EACH HIP XR HIP BILATERAL 5V PEL/AP/LAT EACH HIP Radiology Routine Bilateral hip pain 1 Occurrences starting 10/23/2023 until 11/21/2024 [facility] Comment on above: 1 Occurrences starti ng 10/23/2023 until 11/21/2024 XR HIP BILATERAL 5V PEL/AP/LAT EACH HIP XR HIP BILATERAL 5V PEL/AP/LAT EACH HIP Radiology Routine Bilateral hip pain 10/23/2023 2:53 PM EDT [facility] Immunizations Immunization Date Immunization Notes Care Provider [facility] 10-24-2024 tetanus toxoid, reduced diphtheria toxoid, and acellular pertussis vaccine, adsorbed Navya Sheets DO Work Phone: [facility] 11-23-2023 influenza, seasonal, injectable Lianet Alonzo MD Work Phone: [facility] 11-23-2023 influenza virus vaccine, unspecified formulation Lianet Alonzo MD Work Phone: [facility] 09-22-2022 pneumococcal (PCV20) vaccine, 20 valent (PREVNAR 20) Navya Sheets DO Work Phone: [facility] 09-22-2022 pneumococcal Conjugate, unspecified formulation Navya Sheets DO Work Phone: [facility] Work Phone: 05-20-2021 zoster vaccine, recombinant, adjuvanted, (SHINGRIX) 50 mcg/0.5 mL injection Navya [employer] DO Work Phone: [facility] Work Phone: Comment on above: Repeat 2nd dose in 2 -6 months. 2020 COVID-19 vaccine, booster dose (MODERNA) Navya Sheets DO Work Phone: [facility] 10-26-2020 COVID-19 vaccine, booster dose (MODERNA) Navya Sheets DO Work Phone: [facility] 05-24-2020 influenza, injectabl e, quadrivalent, contains preservative Navya Sheets DO Work Phone: [facility] Work Phone: 05-24-2020 influenza virus vaccine, unspecified formulation Luna Real MA [facility] 10-28-2018 influenza, injectabl e, quadrivalent, preservative free Navya Sheets DO Work Phone: [facility] 11-03-2017 influenza, injectabl e, quadrivalent, preservative free Navya Sheets DO Work Phone: [facility] 01-28-2017 tetanus toxoid, reduced diphtheria toxoid, and acellular pertussis vaccine, adsorbed Navya Sheets DO Work Phone: [facility] 11-16-2015 influenza, injectabl e, quadrivalent, preservative free Navya Sheets DO Work Phone: [facility] 02-28-2015 influenza, injectabl e, quadrivalent, preservative free Navya Sheets DO Work Phone: [facility] 01-03-2014 influenza, seasonal, injectable Navya Sheets DO Work Phone: [facility] 11-11-2011 influenza, seasonal, injectable Navya Sheets DO Work Phone: [facility] 10-04-2010 influenza, seasonal, injectable Navya Sheets DO Work Phone: [facility] 05-25-2005 tetanus and diphther ia toxoids, adsorbed, preservative free, for adult use (2 Lf of tetanus toxoid and 2 Lf of diphtheria toxoid) Navya Sheets DO Work Phone: [facility] Payers Date Payer Category Payer Self-pay [id number] 2017 Blue [employer] Blue Shield [id number] 2017 Unknown ANTHEM ANTHEM BC BS FEP PPO [id number] 2017-Present [phone] [address] [place] [address] PPO [id number] 2017 Unknown [id number] 2017 Unknown [id number] 2010 Unknown [id number] 1965 Unknown [id number] 1963 Unknown [id number] 32 1963 Unknown [id number] 1963 Unknown [id number] 1963 Unknown [id number] 32 Unknown [id number] 62 Unknown [id number] Social History Date Type Detail Facility Start: 05-20-2021 End: 06-23-2021 Assertion Unknown if ever smoked [facility] Work Phone: Start: 1965 Sex Assigned At Not on file S [facility] Work Phone: Start: 01-07-2015 End: 11-23-2023 Tobacco smoking status NHIS Never smoked tobacco [facility] Start: 01-07-2015 End: 11-23-2023 Tobacco use and exposure Smokeless tobacco non-user [facility] Start: 05-20-2021 End: 11-23-2023 Alcohol intake Current non-drinker of alcohol (finding) [facility] Start: 10-20-2015 Tobacco Comment Tobacco no use; [facility] Start: 07-01-2021 End: 11-24-2021 Exposure to SARS-CoV-2 (event) Not sure [facility] Start: 1965 Sex Assigned At Male [facility] Start: 08-18-2022 End: 12-30-2023 History of Social function [facility] Start: 08-18-2022 End: 12-30-2023 Tobacco use panel [facility] Start: 02-11-2012 Adult Depression Screening Assessment [address] [place] [address] Within the last year , have you been afraid of your partner or ex-partner? No [facility] Are you now , , , , never or living with a partner? [facility] How hard is it for you to pay for the very basics like food, housing, medical care, and heating Not very hard [facility] Do you feel stress - tense, restless, nervous, or anxious, or unable to sleep at night because your mind is troubled all the time - these days [OSQ] To some extent [facility] (I/We) worried whether (my/our) food would run out before (I/we) got money to buy more. Never true [facility] Start: 12-30-2023 Education [facility] Start: 01-14-2012 Sex Male (finding) [facility] Start: 07-02-2024 End: 10-06-2024 Alcoholic beverage intake Lifetime non-drinker (finding) [facility] Start: 07-02-2024 Alcohol Comment no reported history [facility] NEGATED: Highlighted rowStart: 06-20-2021 End: 06-20-2021 Employment detail Employment detail [facility] Work Phone: NEGATED: Highlighted rowStart: 06-21-2021 End: 06-21-2021 Employment detail Employment detail [facility] [employer] Work Phone: NEGATED: Highlighted rowStart: ABELARDOF History of tobacco use Passive smoker [facility] Functional Status Date Assessment Result Facility 12-11-2014 Are you deaf, or do you have serious difficulty hearing No 12/11/2014 3:53 PM EDT Tammy AlvarezRn)(Hist), RN No [facility] 12-11-2014 Are you blind, or do you have serious difficulty seeing, even when wearing glasses No 12/11/2014 3:53 PM EDT Tammy AlvarezRn)(Hist), RN No [facility] 12-11-2014 Do you have serious difficulty walking or climbing stairs Yes 12/11/2014 3:53 PM EDT Tammy AlvarezRn)(Hist), RN Yes [facility] 12-11-2014 Do you have difficul ty dressing or bathing No 12/11/2014 3:53 PM EDT Tammy AlvarezRn)(Hist), RN No [facility] 12-11-2014 Because of a physica l, mental, or emotional condition, do you have difficulty doing errands alone such as visiting a physician's office or shopping No 12/11/2014 3:53 PM EDT Tammy AlvarezRn)(Hist), RN No [facility] Mental Status Date Assessment Result Facility 12-11-2014 Because of a physica l, mental, or emotional condition, do you have serious difficulty concentrating, remembering, or making decisions No 12/11/2014 3:53 PM EDT Tammy AlvarezRn)(Hist), RN No [facility] Clinical Notes 03-23-2017 to 10-31-2024 Savannah Lion MA - 10/31/2024 10:14 AM Milagro Branham LPN - 10/27/2024 11:48 AM EDTTelephone Encounter - Atul Katz MA - 10/13/2024 10:46 AM EDTPatient InstructionsPatient Instructions Note Date & Type Note Facility 10-31-2024 History of Presen t illness Narrative Patient was identified by name and date of . Savannah Lion MA Venipuncture performed on right hand with no complications. Site free of swelling and redness. Pressure held on site until hemostasis achieved. Placed cotton ball and tape on site. Pt tolerated procedure well. documented in this encounter [facility] 10-30-2024 Radiology Diagnostic study note [facility] Imaging Services [address] [place], [place] [address] Cerv Spine 2 or 3 Views MR#: [id number] Acct: [id number] Name: ALIX WOODY Rep #: [id number] : 1965 M 58 From: Damon Sanabria MD PCP: Dr. Navya Rodríguez DO Status: RE G CLI Study:Cerv Spine 2 or 3 Views Date of Exam: 10/30/24 Exam# [id number] Ordering Dr: Kianna King MD PROCEDURE: CERV SPINE 2 OR 3 VIEWS 10/30/2024 REASON FOR EXAM: RADICULOPATHY, CERVICAL REGION TECHNIQUE: CERV SPINE 2 OR 3 VIEWS COMPARISON: None. FINDINGS: BONES: No fracture or focal osseous lesion. Anatomic spinal alignment. DISC/DEGENERATIVE CHANGES: Moderate disc space narrowing at C6-C7. Minimal vertebral endplate osteophytes at a few levels. Multilevel facet arthropathy bilaterally. SOFT TISSUES: No acute abnormality seen. RAD/Cerv Spine 2 or 3 Views IMPRESSION: 1. No acute osseous abnormality. 2. Spondylosis and degenerative disc disease. Reading Location: [id number] CC: Dr. Michael King MD; Dr. Navya Rodríguez DO ~ Production Control Planner: Signed [facility] 10-27-2024 Note HNO ID: [id number] Author: MILAGRO SALCEDO LPN Service: ? Author Type: Licensed Nurse Type: Progress Notes Filed: 10/27/2024 11:52 Note Text: ED Follow-Up Note Provider Action / FYI: Pt states that he is done fine and site is healing fine. Pt does not wish to schedule ER follow up at this time. Milagro Salcedo LPN Call completed by: SARAY Patient seen in ED: In Network ED Contact made with Patient: Yes The patient was identified by Name and Date of . Discussed Care with: patient Patient was seen in the Emergency Department (ED) Location: [place] Date: 10/24/2024 Reason for ED Visit: Abrasion of left arm ED Intervention: Tetanus vaccine Bacitracin 1 packet New Medications: None Medication Changes: None Does patient understand medication changes: N/A Can patient afford medication changes: N/A Patient educated on worsening symptoms and when and where to seek additional care: No Patient Education Provided including treatment plan and new orders. Patient provided with appropriate counseling: Yes [facility] 10-27-2024 History of Presen t illness Narrative ED Follow-Up Note Provider Action / FYI: Pt states that he is done fine and site is healing fine. Pt does not wish to schedule ER follow up at this time. Milagro Salcedo LPN Call completed by: SARAY Patient seen in ED: In Network ED Contact made with Patient: Yes The patient was identified by Name and Date of . Discussed Care with: patient Patient was seen in the Emergency Department (ED) Location: [place] Date: 10/24/2024 Reason for ED Visit: Abrasion of left arm ED Intervention: Tetanus vaccine Bacitracin 1 packet New Medications: None Medication Changes: None Does patient understand medication changes: N/A Can patient afford medication changes: N/A Patient educated on worsening symptoms and when and where to seek additional care: No Patient Education Provided including treatment plan and new orders. Patient provided with appropriate counseling: Yes documented in this encounter [facility] 10-27-2024 Note Patient Outreach (JESSE JEFFERS) ALIX WOODY ([id number]) 1965 M Date Time Provider Department 10/27/24 NAVYA RODRÍGUEZ During your visit today, we recorded the following information about you: Milagro Salcedo LPN 10/27/2024 11:52 AM Signed ED Follow-Up Note Provider Action / FYI: Pt states that he is done fine and site is healing fine. Pt does not wish to schedule ER follow up at this time. Milagro Salcedo LPN Call completed by: SARAY Patient seen in ED: In Network ED Contact made with Patient: Yes The patient was identified by Name and Date of . Discussed Care with: patient Patient was seen in the Emergency Department (ED) Location: [place] Date: 10/24/2024 Reason for ED Visit: Abrasion of left arm ED Intervention: Tetanus vaccine Bacitracin 1 packet New Medications: None Medication Changes: None Does patient understand medication changes: N/A Can patient afford medication changes: N/A Patient educated on worsening symptoms and when and where to seek additional care: No Patient Education Provided including treatment plan and new orders. Patient provided with appropriate counseling: Yes Allergies As of Date: 10/27/2024 Noted Allergy Reaction MED-HIST 10/20/2015 4 - Hives Comments: Hay POLLENS EXTRACT 11/27/2014 14 - Other: See Comments VANCOMYCIN 10/20/2015 2 - Rash Date Reviewed: 10/24/2024 Reviewed by: Keven Vanessa RN - Fully Assessed Reason for Visit: ED Follow-up [821] Cmt: [place] [facility] 10/24/2024 Prescriptions as of 10/27/2024 - traZODone (DESYREL) 150 mg tablet Take 1 tablet by mouth daily at bedtime. - predniSONE (DELTASONE) 1 mg tablet Take 1 mg by mouth once daily. - sertraline (ZOLOFT) 50 mg tablet take 1 tablet by mouth once daily. - SUMAtriptan (IMITREX) 100 mg tablet TAKE 1 TABLET BY MOUTH AT THE ONSET OF A HEADACHE. MAY REPEAT IN 2 (TWO) HOURS IF HEADACHE PERSISTS. MAXIMUM DAILY DOSE 2 (TWO) TABLETS EVERY 24 HOURS - zoster vaccine, recombinant, adjuvanted, (SHINGRIX) 50 mcg/0.5 mL injection Repeat 2nd dose in 2-6 months. - morphine SR (MS CONTIN, ORAMORPH SR) 15 mg 12 hr tablet TAKE 1 TABLET BY MOUTH TWICE DAILY for up to 28 days - traMADol (ULTRAM) 50 mg tablet Take 50 mg by mouth three times a day. tid Problem List As Of Date 10/27/2024 Noted Resolved Thoracic or lumbosacral neuritis or radiculitis* 11/19/2015 Tibial plateau fracture [S82.143A] 01/07/2015 11/19/2015 Depressive disorder [F32.A] Moderate persistent asthma without complication*11/19/2015 Chronic midline low back pain [M54.50, G89.29] 11/19/2015 05/26/2016 Chronic midline low back pain with bilateral sc*05/26/2016 Primary insomnia [F51.01] 10/13/2016 03/23/2017 Chronic insomnia [F51.04] 03/23/2017 Rash [R21] 03/23/2017 06/22/2017 Acute pain of left shoulder [M25.512] 06/22/2017 Obesity, Class I, BMI 30-34.9 [E66.811] 06/22/2017 Hyperlipidemia, mixed [E78.2] 06/22/2017 Migraine without aura and without status migrai*05/03/2018 BMI 31.0-31.9,adult [Z68.31] 04/21/2019 History of COVID-19 [Z86.16] 05/20/2021 Trigger finger, right middle finger [M65.331] 09/22/2022 Chronic pain of both shoulders [M25.511, G89.29*08/21/2023 Left ankle tendonitis [M77.52] 08/21/2023 Elevated blood pressure reading without diagnos*08/21/2023 PMR (polymyalgia rheumatica) ([facility]) [M35.3] 12/25/2023 Encounter Status:Closed by MILAGRO SALCEDO on 10/27/24 [facility] 10-13-2024 Telephone encounter Note pharmacy electronically requesting refills as follows: Last seen 10/06/24 . Last refill 10/04/23 . Requested Prescriptions Pending Prescriptions Disp Refills traZODone (DESYREL) 150 mg tablet [Pharmacy Med Name: trazodone 150 mg tablet] 30 tablet 11 Sig: Take 1 tablet by mouth daily at bedtime. Please review and advise. Atul Katz MA [facility] 10-13-2024 Miscellaneous Notes pharmacy electronically requesting refills as follows: Last seen 10/06/24 . Last refill 10/04/23 . Requested Prescriptions Pending Prescriptions Disp Refills traZODone (DESYREL) 150 mg tablet [Pharmacy Med Name: trazodone 150 mg tablet] 30 tablet 11 Sig: Take 1 tablet by mouth daily at bedtime. Please review and advise. Autl Katz MA documented in this encounter [facility] 10-06-2024 Note HNO ID: [id number] Author: NAVYA RODRÍGUEZ, DO Service: ? Author Type: Physician Type: Progress Notes Filed: 10/28/2024 13:47 Note Text: Subjective Sonu Woody is a 58-year-old male with a history of left shoulder labral tear and cyst formation, presenting for worsening left upper extremity numbness and tingling. Left Upper Extremity Paresthesia: - Chronic numbness and tingling in the left upper extremity, worsening as Prednisone taper progresses. - Currently on 1 mg Prednisone daily, prescribed by area captain. - EMG performed a year ago showed no abnormalities. - History of left shoulder labral tear and cyst formation in 2017, with similar symptoms. - Previous surgery by Dr. Marin Ibrahim at [facility] in [place]. - Denies numbness or tingling in the right upper extremity. Left Shoulder Pain: - Chronic pain in the left shoulder, with limited ROM. - Unable to lift any weight above shoulder level. - No current medication for shoulder pain. HPI ALLERGIES Allergen Reactions Med-Hist Hives Hay Pollens Extract Other: See Comments Vancomycin Rash Current Outpatient Medications Medication Sig Dispense Refill predniSONE (DELTASONE) 1 mg tablet Take 1 mg by mouth once daily. sertraline (ZOLOFT) 50 mg tablet take 1 tablet by mouth once daily. 30 tablet 2 SUMAtriptan (IMITREX) 100 mg tablet TAKE 1 TABLET BY MOUTH AT THE ONSET OF A HEADACHE. MAY REPEAT IN 2 (TWO) HOURS IF HEADACHE PERSISTS. MAXIMUM DAILY DOSE 2 (TWO) TABLETS EVERY 24 HOURS 10 tablet 1 traZODone (DESYREL) 150 mg tablet Take 1 tablet by mouth daily at bedtime. 30 tablet 11 morphine SR (MS CONTIN, ORAMORPH SR) 15 mg 12 hr tablet TAKE 1 TABLET BY MOUTH TWICE DAILY for up to 28 days traMADol (ULTRAM) 50 mg tablet Take 50 mg by mouth three times a day. tid predniSONE (DELTASONE) 5 mg tablet Take 5 mg by mouth once daily. (Patient not taking: Reported on 10/06/2024) zoster vaccine, recombinant, adjuvanted, (SHINGRIX) 50 mcg/0.5 mL injection Repeat 2nd dose in 2-6 months. 1 Each 0 No current facility-administered medications for this visit. ACTIVE PROBLEM LIST Depressive Disorder Moderate Persistent Asthma Without Complication ([facility]) Chronic Midline Low Back Pain With Bilateral Sciatica Chronic Insomnia Acute Pain of Left Shoulder Obesity, Class I, Bmi 30-34.9 Hyperlipidemia, Mixed Migraine Without Aura and Without Status Migrainosus, Not Intractable Bmi 31.0-31.9,Adult History of Covid-19 Trigger Finger, Right Middle Finger Chronic Pain of Both Shoulders Left Ankle Tendonitis Elevated Blood Pressure Reading Without Diagnosis of Hypertension Pmr (Polymyalgia Rheumatica) ([facility]) Social History Tobacco Use Smoking status: Never Smokeless tobacco: Never Tobacco comments: Tobacco no use; Vaping Use Vaping status: Never Used Substance Use Topics Alcohol use: Never Comment: no reported history Drug use: Never Family History Problem Relation Age of Onset other (aortic aneurysm rupture) Paternal Grandfather Asthma Mother Ischemic Heart Disease Father other (Heart disease) Father Prostate Cancer Maternal Grandfather Reviewed past medical history, family history and surgeries. All medications and supplements were reviewed with the patient. Review of Systems Constitutional: Negative for activity change, appetite change and unexpected weight change. Respiratory: Negative for chest tightness and shortness of breath. Cardiovascular: Negative for chest pain. Gastrointestinal: Negative for abdominal pain. Genitourinary: Negative for difficulty urinating. Musculoskeletal: Positive for arthralgias. Neurological: Positive for weakness and numbness. Objective BP 152/84 Pulse 77 Temp 37.3 ?C (99.2 ?F) Resp 16 Ht 180.3 cm (5' 11) Wt 99.8 kg (220 lb) SpO2 95% BMI 30.68 kg/m? Physical Exam Constitutional: Appearance: Normal appearance. HENT: Mouth/Throat: Dentition: Normal dentition. Eyes: General: Lids are normal. Conjunctiva/sclera: Conjunctivae normal. Pupils: Pupils are equal, round, and reactive to light. Neck: Thyroid: No thyroid mass or thyromegaly. Vascular: No carotid bruit. Trachea: Phonation normal. Cardiovascular: Rate and Rhythm: Normal rate and regular rhythm. Heart sounds: Normal heart sounds. No murmur heard. No friction rub. No gallop. Pulmonary: Effort: Pulmonary effort is normal. Breath sounds: Normal breath sounds. No wheezing or rales. Abdominal: General: Bowel sounds are normal. There is no distension. Palpations: Abdomen is soft. There is no mass. Tenderness: There is no abdominal tenderness. Musculoskeletal: General: Tenderness (over left anterior GH joint) present. Normal range of motion. Cervical back: Normal range of motion and neck supple. No edema. Lymphadenopathy: Cervical: No cervical adenopathy. Skin: General: Skin is warm and dry. Findings: No erythema or rash. Nails: Ther (more content not included)... [facility] 10-06-2024 History of Presen t illness Narrative Subjective Sonu Woody is a 58-year-old male with a history of left shoulder labral tear and cyst formation, presenting for worsening left upper extremity numbness and tingling. Left Upper Extremity Paresthesia: - Chronic numbness and tingling in the left upper extremity, worsening as Prednisone taper progresses. - Currently on 1 mg Prednisone daily, prescribed by area captain. - EMG performed a year ago showed no abnormalities. - History of left shoulder labral tear and cyst formation in 2017, with similar symptoms. - Previous surgery by Dr. Marin Ibrahim at [facility] in [place]. - Denies numbness or tingling in the right upper extremity. Left Shoulder Pain: - Chronic pain in the left shoulder, with limited ROM. - Unable to lift any weight above shoulder level. - No current medication for shoulder pain. HPI ALLERGIES Allergen Reactions Med-Hist Hives Hay Pollens Extract Other: See Comments Vancomycin Rash Current Outpatient Medications Medication Sig Dispense Refill predniSONE (DELTASONE) 1 mg tablet Take 1 mg by mouth once daily. sertraline (ZOLOFT) 50 mg tablet take 1 tablet by mouth once daily. 30 tablet 2 SUMAtriptan (IMITREX) 100 mg tablet TAKE 1 TABLET BY MOUTH AT THE ONSET OF A HEADACHE. MAY REPEAT IN 2 (TWO) HOURS IF HEADACHE PERSISTS. MAXIMUM DAILY DOSE 2 (TWO) TABLETS EVERY 24 HOURS 10 tablet 1 traZODone (DESYREL) 150 mg tablet Take 1 tablet by mouth daily at bedtime. 30 tablet 11 morphine SR (MS CONTIN, ORAMORPH SR) 15 mg 12 hr tablet TAKE 1 TABLET BY MOUTH TWICE DAILY for up to 28 days traMADol (ULTRAM) 50 mg tablet Take 50 mg by mouth three times a day. tid predniSONE (DELTASONE) 5 mg tablet Take 5 mg by mouth once daily. (Patient not taking: Reported on 10/06/2024) zoster vaccine, recombinant, adjuvanted, (SHINGRIX) 50 mcg/0.5 mL injection Repeat 2nd dose in 2-6 months. 1 Each 0 No current facility-administered medications for this visit. ACTIVE PROBLEM LIST Depressive Disorder Moderate Persistent Asthma Without Complication ([facility]) Chronic Midline Low Back Pain With Bilateral Sciatica Chronic Insomnia Acute Pain of Left Shoulder Obesity, Class I, Bmi 30-34.9 Hyperlipidemia, Mixed Migraine Without Aura and Without Status Migrainosus, Not Intractable Bmi 31.0-31.9,Adult History of Covid-19 Trigger Finger, Right Middle Finger Chronic Pain of Both Shoulders Left Ankle Tendonitis Elevated Blood Pressure Reading Without Diagnosis of Hypertension Pmr (Polymyalgia Rheumatica) ([facility]) Social History Tobacco Use Smoking status: Never Smokeless tobacco: Never Tobacco comments: Tobacco no use; Vaping Use Vaping status: Never Used Substance Use Topics Alcohol use: Never Comment: no reported history Drug use: Never Family History Problem Relation Age of Onset other (aortic aneurysm rupture) Paternal Grandfather Asthma Mother Ischemic Heart Disease Father other (Heart disease) Father Prostate Cancer Maternal Grandfather Reviewed past medical history, family history and surgeries. All medications and supplements were reviewed with the patient. Review of Systems Constitutional: Negative for activity change, appetite change and unexpected weight change. Respiratory: Negative for chest tightness and shortness of breath. Cardiovascular: Negative for chest pain. Gastrointestinal: Negative for abdominal pain. Genitourinary: Negative for difficulty urinating. Musculoskeletal: Positive for arthralgias. Neurological: Positive for weakness and numbness. Objective BP 152/84 Pulse 77 Temp 37.3 C (99.2 F) Resp 16 Ht 180.3 cm (5' 11) Wt 99.8 kg (220 lb) SpO2 95% BMI 30.68 kg/m Physical Exam Constitutional: Appearance: Normal appearance. HENT: Mouth/Throat: Dentition: Normal dentition. Eyes: General: Lids are normal. Conjunctiva/sclera: Conjunctivae normal. Pupils: Pupils are equal, round, and reactive to light. Neck: Thyroid: No thyroid mass or thyromegaly. Vascular: No carotid bruit. Trachea: Phonation normal. Cardiovascular: Rate and Rhythm: Normal rate and regular rhythm. Heart sounds: Normal heart sounds. No murmur heard. No friction rub. No gallop. Pulmonary: Effort: Pulmonary effort is normal. Breath sounds: Normal breath sounds. No wheezing or rales. Abdominal: General: Bowel sounds are normal. There is no distension. Palpations: Abdomen is soft. There is no mass. Tenderness: There is no abdominal tenderness. Musculoskeletal: General: Tenderness (over left anterior GH joint) present. Normal range of motion. Cervical back: Normal range of motion and neck supple. No edema. Lymphadenopathy: Cervical: No cervical adenopathy. Skin: General: Skin is warm and dry. Findings: No erythema or rash. Nails: There is no clubbing. Neurological: Mental Status: He is alert and oriented to person, place, and time. Cranial Nerves: No cranial nerve deficit. Coordination: Coordination normal. Psychiatric: Judgment: Judgment normal. ASSESSMENT/PLAN: 1. Chronic left shoulder pain (M25.512) - History of labral injury and cyst formation in 2017 with similar symptoms. - Refer to Dr. Marin Ibrahim (orthopedic surgeon) at [facility] office for further evaluation and management. - Repeat course of prednisone - PREDNISONE 1 MG TABLET - Order blood work to evaluate for other potential causes, including vitamin B12 and TSH. - CONSULT TO ORTHOPAEDICS 2. Numbness and tingling in left hand (R20.0) - Chronic left shoulder pain with associated numbness and paresthesia in the left hand and arm, worsening as prednisone is tapered; prior EMG (1 year ago) was unremarkable. - COMPREHENSIVE METABOLIC PANEL - THYROID STIMULATING HORMONE - VITAMIN B12 3. Hyperlipidemia, mixed (E78.2) - Order fasting lipid panel. - Instructed patient to fast for 10 hours prior to blood draw. - Advised patient to coordinate neurologist-ordered labs with those ordered today to minimize blood draws. - COMPLETE BLOOD COUNT - LIPID PANEL, FASTING 4. Screening for prostate cancer (Z12.5) - Order PSA for prostate cancer screening. 5. Obesity, Class I, BMI 30-34.9 (E66.811) Lifestyle modification recommended Navya Rodríguez DO The patient consented to the use of [employer] software for draft documentation of the visit consistent with [facility] s Notice of Privacy Practices. documented in this encounter [facility] 09-29-2024 Telephone encounter Note Left voicemail to callback for scheduling [facility] 09-29-2024 Miscellaneous Notes Left voicemail to callback for scheduling documented in this encounter [facility] 09-29-2024 Telephone encounter Note Repeat prednisone being filled however patient has not had regular labs done as requested Replacing labs and requesting ESR/CRP monthly while on prednisone and 1-month after completion as well [facility] 09-29-2024 Miscellaneous Notes Repeat prednisone being filled however patient has not had regular labs done as requested Replacing labs and requesting ESR/CRP monthly while on prednisone and 1-month after completion as well documented in this encounter [facility] 09-05-2024 Telephone encounter Note Patients notified. Also lm on pt . Vm with all information. Elisabet Sellers MA [facility] 09-05-2024 Miscellaneous Notes Patients notified. Also lm on pt . Vm with all information. Elisabet Sellers MA He needs to go to te ED Navya Rodríguez, DO Central scheduling hospitality house supervisor called stating patient is having numbness starting at his shoulders and going down his arms. We were able to get patient scheduled for 09/17/24 with Fior Brown CNP. Did you want patient to do anything else prior. Please advise. Atul Katz MA documented in this encounter [facility] 09-05-2024 Telephone encounter Note He needs to go to te ED Navya Rodríguez, DO [facility] 09-05-2024 Telephone encounter Note Central scheduling hospitality house supervisor called stating patient is having numbness starting at his shoulders and going down his arms. We were able to get patient scheduled for 09/17/24 with Fior Brown CNP. Did you want patient to do anything else prior. Please advise. Atul Katz MA [facility] 08-28-2024 Telephone encounter Note pharmacy electronically requesting refills as follows: Last seen 07/02/24 . Last refill 05/14/24 . Requested Prescriptions Pending Prescriptions Disp Refills sertraline (ZOLOFT) 50 mg tablet [Pharmacy Med Name: sertraline 50 mg tablet] 30 tablet 2 Sig: take 1 tablet by mouth once daily. Please review and advise. Atul Katz MA [facility] 08-28-2024 Miscellaneous Notes pharmacy electronically requesting refills as follows: Last seen 07/02/24 . Last refill 05/14/24 . Requested Prescriptions Pending Prescriptions Disp Refills sertraline (ZOLOFT) 50 mg tablet [Pharmacy Med Name: sertraline 50 mg tablet] 30 tablet 2 Sig: take 1 tablet by mouth once daily. Please review and advise. Atul Katz MA documented in this encounter [facility] 08-05-2024 Telephone encounter Note Pharmacy electronically requesting refills as follows: Last seen 07/02/24 . Last refill 03/21/24 . Requested Prescriptions Pending Prescriptions Disp Refills SUMAtriptan (IMITREX) 100 mg tablet [Pharmacy Med Name: sumatriptan 100 mg tablet] 10 tablet 1 Sig: TAKE 1 TABLET BY MOUTH AT THE ONSET OF A HEADACHE. MAY REPEAT IN 2 (TWO) HOURS IF HEADACHE PERSISTS. MAXIMUM DAILY DOSE 2 (TWO) TABLETS EVERY 24 HOURS Please review and advise. Atul Katz MA [facility] 08-05-2024 Miscellaneous Notes Pharmacy electronically requesting refills as follows: Last seen 07/02/24 . Last refill 03/21/24 . Requested Prescriptions Pending Prescriptions Disp Refills SUMAtriptan (IMITREX) 100 mg tablet [Pharmacy Med Name: sumatriptan 100 mg tablet] 10 tablet 1 Sig: TAKE 1 TABLET BY MOUTH AT THE ONSET OF A HEADACHE. MAY REPEAT IN 2 (TWO) HOURS IF HEADACHE PERSISTS. MAXIMUM DAILY DOSE 2 (TWO) TABLETS EVERY 24 HOURS Please review and advise. Atul Katz MA documented in this encounter [facility] 07-02-2024 Note HNO ID: [id number] Author: NAVYA RODRÍGUEZ DO Service: ? Author Type: Physician Type: Progress Notes Filed: 07/02/2024 16:25 Note Text: Subjective The history is provided by the patient. Pt is here for f/u for insomnia and depression. He is taking trazodone 150 mg at bedtime, and sertraline 50 mg daily, and they are working well. He had pain in his left shoulder, thought to be a pinched nerve The pain has gone away He was having trouble urinating, getting up several times through the night, and was not able to completely empty his bladder ALLERGIES Allergen Reactions Med-Hist Hives Hay Pollens Extract Other: See Comments Vancomycin Rash Current Outpatient Medications Medication Sig Dispense Refill predniSONE (DELTASONE) 5 mg tablet Take 5 mg by mouth once daily. sertraline (ZOLOFT) 50 mg tablet take 1 tablet by mouth once daily. 30 tablet 2 SUMAtriptan (IMITREX) 100 mg tablet take 1 tablet by mouth AT ONSET OF HEADACHE may repeat in 2 hours IF headache PERSISTS maximum daily dose of 2 tablets (200 milligrams) every 24 hours 10 tablet 1 traZODone (DESYREL) 150 mg tablet Take 1 tablet by mouth daily at bedtime. 30 tablet 11 zoster vaccine, recombinant, adjuvanted, (SHINGRIX) 50 mcg/0.5 mL injection Repeat 2nd dose in 2-6 months. 1 Each 0 morphine SR (MS CONTIN, ORAMORPH SR) 15 mg 12 hr tablet TAKE 1 TABLET BY MOUTH TWICE DAILY for up to 28 days traMADol (ULTRAM) 50 mg tablet Take 50 mg by mouth three times a day. tid No current facility-administered medications for this visit. ACTIVE PROBLEM LIST Depressive Disorder Moderate Persistent Asthma Without Complication ([facility]) Chronic Midline Low Back Pain With Bilateral Sciatica Chronic Insomnia Acute Pain of Left Shoulder Obesity, Class I, Bmi 30-34.9 Hyperlipidemia, Mixed Migraine Without Aura and Without Status Migrainosus, Not Intractable Bmi 31.0-31.9,Adult History of Covid-19 Trigger Finger, Right Middle Finger Chronic Pain of Both Shoulders Left Ankle Tendonitis Elevated Blood Pressure Reading Without Diagnosis of Hypertension Pmr (Polymyalgia Rheumatica) ([facility]) Social History Tobacco Use Smoking status: Never Smokeless tobacco: Never Tobacco comments: Tobacco no use; Vaping Use Vaping status: Never Used Substance Use Topics Alcohol use: Never Comment: no reported history Drug use: Never Family History Problem Relation Age of Onset other (aortic aneurysm rupture) Paternal Grandfather Asthma Mother Ischemic Heart Disease Father other (Heart disease) Father Prostate Cancer Maternal Grandfather Reviewed past medical history, family history and surgeries. All medications and supplements were reviewed with the patient. Review of Systems Constitutional: Negative for chills, diaphoresis, fever and weight loss. HENT: Negative for ear pain and hearing loss. Eyes: Negative for double vision. Respiratory: Negative for cough. Cardiovascular: Negative for leg swelling. Gastrointestinal: Negative for constipation, diarrhea and heartburn. Genitourinary: Negative for dysuria and frequency. Musculoskeletal: Negative for back pain, falls, joint pain and myalgias. Skin: Negative for itching and rash. Neurological: Negative for dizziness and weakness. Endo/Heme/Allergies: Does not bruise/bleed easily. Psychiatric/Behavioral: Negative for depression and substance abuse. The patient does not have insomnia. Objective BP 122/74 Pulse 77 Temp 36.7 ?C (98.1 ?F) (Oral) Resp 18 Ht 180.3 cm (5' 11) Wt 99.8 kg (220 lb) SpO2 96% BMI 30.68 kg/m? Physical Exam Constitutional: Appearance: Normal appearance. He is obese. HENT: Head: Normocephalic and atraumatic. Nose: Nose normal. Mouth/Throat: Mouth: Mucous membranes are moist. Dentition: Normal dentition. Eyes: General: Lids are normal. Extraocular Movements: Extraocular movements intact. Conjunctiva/sclera: Conjunctivae normal. Pupils: Pupils are equal, round, and reactive to light. Neck: Thyroid: No thyroid mass or thyromegaly. Vascular: No carotid bruit. Trachea: Phonation normal. Cardiovascular: Rate and Rhythm: Normal rate and regular rhythm. Heart sounds: Normal heart sounds. No murmur heard. No friction rub. No gallop. Pulmonary: Effort: Pulmonary effort is normal. Breath sounds: Normal breath sounds. No wheezing or rales. Abdominal: General: Bowel sounds are normal. There is no distension. Palpations: Abdomen is soft. There is no mass. Tenderness: There is no abdominal tenderness. Musculoskeletal: General: No swelling or tenderness. Normal range of motion. Cervical back: Normal range of motion and neck supple. No edema. Lymphadenopathy: Cervical: No cervical adenopathy. Skin: General: Skin is warm and dry. Findings: No erythema or rash. Nails: There is no clubbing. Neurological: Mental Status: He is alert and oriented to person, place, and time. Cranial Nerves (more content not included)... [facility] 05-14-2024 Telephone encounter Note pharmacy electronically requesting refills as follows: Last seen 11/23/23 . Last refill 01/01/24 . Requested Prescriptions Pending Prescriptions Disp Refills sertraline (ZOLOFT) 50 mg tablet [Pharmacy Med Name: sertraline 50 mg tablet] 30 tablet 2 Sig: take 1 tablet by mouth once daily. Please review and advise. Atul Katz MA [facility] 05-14-2024 Miscellaneous Notes pharmacy electronically requesting refills as follows: Last seen 11/23/23 . Last refill 01/01/24 . Requested Prescriptions Pending Prescriptions Disp Refills sertraline (ZOLOFT) 50 mg tablet [Pharmacy Med Name: sertraline 50 mg tablet] 30 tablet 2 Sig: take 1 tablet by mouth once daily. Please review and advise. Atul Katz MA documented in this encounter [facility] 03-21-2024 Miscellaneous Notes Patient requesting refills: Last office visit 11/23/2023. Last refill 02/06/2024. Requested Prescriptions Pending Prescriptions Disp Refills SUMAtriptan (IMITREX) 100 mg tablet 10 tablet 1 Sig: take 1 tablet by mouth AT ONSET OF HEADACHE may repeat in 2 hours IF headache PERSISTS maximum daily dose of 2 tablets (200 milligrams) every 24 hours Please review and advise. Elisabet Sellers MA documented in this encounter [facility] 03-21-2024 Telephone encounter Note Patient requesting refills: Last office visit 11/23/2023. Last refill 02/06/2024. Requested Prescriptions Pending Prescriptions Disp Refills SUMAtriptan (IMITREX) 100 mg tablet 10 tablet 1 Sig: take 1 tablet by mouth AT ONSET OF HEADACHE may repeat in 2 hours IF headache PERSISTS maximum daily dose of 2 tablets (200 milligrams) every 24 hours Please review and advise. Elisabet Sellers MA [facility] 02-19-2024 Telephone encounter Note I called and spoke to Naida. He is on steroids for PMR, is tapering off steroids and will be on 9 mg of steroids by the time of his surgery. They typically give dexamethasone 10 mg one day before, day of and 2 days after. We discussed that the patient double his dose on the day of surgery, and then resume tapering on the day after surgery. Naida will call him with the instructions. Navya Rodríguez DO [facility] 02-19-2024 Miscellaneous Notes I called and spoke to Naida. He is on steroids for PMR, is tapering off steroids and will be on 9 mg of steroids by the time of his surgery. They typically give dexamethasone 10 mg one day before, day of and 2 days after. We discussed that the patient double his dose on the day of surgery, and then resume tapering on the day after surgery. Naida will call him with the instructions. Navya Rodríguez DO Patient is on 10mg every of prednisone everyday per naida at [facility]. She states he was on 20mg , but has been tapering down. Elisabet Sellers MA Please find out from Naida how the prednisone they give is prescribed or given ie what dosage, how many days, etc. Thanks Navya Rodríguez DO Naida from [facility] called she was informed by patient that he is currently weaning off his chronic prednisone. For the procedure he is getting done they give them prednisone so she was wondering what they could do in place Eleanor Bacon MA documented in this encounter [facility] 02-19-2024 Telephone encounter Note Patient is on 10mg every of prednisone everyday per naida at [facility]. She states he was on 20mg , but has been tapering down. Elisabet Sellers MA [facility] 02-19-2024 Telephone encounter Note Please find out from Naida how the prednisone they give is prescribed or given ie what dosage, how many days, etc. Thanks Navya Rodríguez DO [facility] 02-19-2024 Telephone encounter Note Naida from [facility] called she was informed by patient that he is currently weaning off his chronic prednisone. For the procedure he is getting done they give them prednisone so she was wondering what they could do in place Eleanor Bacon MA [facility] 02-11-2024 Telephone encounter Note Patient has appointment 02/20 with Charleen Maravilla CNP for surgery clearance. Atul Katz MA [facility] 02-11-2024 Miscellaneous Notes Patient has appointment 02/20 with Charleen Maravilla CNP for surgery clearance. Atul Katz MA Pt needs appt for surgical clearance Navya Rodríguez DO Second call. Please advise. [facility] Clearance to have all remaining upper and lower teeth removed with immediate implant placement, requires IV sedation placed in Dr. Rodríguez green folder to be filled out and signed. Atul Katz MA documented in this encounter [facility] 02-11-2024 Telephone encounter Note Pt needs appt for surgical clearance Navya Rodríguez DO [facility] 02-11-2024 Telephone encounter Note Second call. Please advise. [facility] 02-06-2024 Telephone encounter Note Patient requesting refills as follows: Last Office Visit 11/23/23 NOV 02/21/24. Last Refill 12/18/23. Requested Prescriptions Pending Prescriptions Disp Refills SUMAtriptan (IMITREX) 100 mg tablet 10 tablet 0 Sig: take 1 tablet by mouth AT ONSET OF HEADACHE may repeat in 2 hours IF headache PERSISTS maximum daily dose of 2 tablets (200 milligrams) every 24 hours Please review and advise. Eleanor Bacon MA [facility] 02-06-2024 Miscellaneous Notes Patient requesting refills as follows: Last Office Visit 11/23/23 NOV 02/21/24. Last Refill 12/18/23. Requested Prescriptions Pending Prescriptions Disp Refills SUMAtriptan (IMITREX) 100 mg tablet 10 tablet 0 Sig: take 1 tablet by mouth AT ONSET OF HEADACHE may repeat in 2 hours IF headache PERSISTS maximum daily dose of 2 tablets (200 milligrams) every 24 hours Please review and advise. Eleanor Bacon MA documented in this encounter [facility] 01-30-2024 Telephone encounter Note [facility] Clear[facility] to have all remaining upper and lower teeth removed with immediate implant placement, requires IV sedation placed in Dr. Rodríguez green folder to be filled out and signed. Atul Katz MA [facility] 01-01-2024 Telephone encounter Note Pharmacy requesting refills as follows: Last Office Visit 11/23/23 05/24/23. Last Refill 10/15/23. Requested Prescriptions Pending Prescriptions Disp Refills sertraline (ZOLOFT) 50 mg tablet [Pharmacy Med Name: sertraline 50 mg tablet] 30 tablet 2 Sig: take 1 tablet by mouth once daily. Please review and advise. Eleanor Bacon MA [facility] 01-01-2024 Miscellaneous Notes Pharmacy requesting refills as follows: Last Office Visit 11/23/23 05/24/23. Last Refill 10/15/23. Requested Prescriptions Pending Prescriptions Disp Refills sertraline (ZOLOFT) 50 mg tablet [Pharmacy Med Name: sertraline 50 mg tablet] 30 tablet 2 Sig: take 1 tablet by mouth once daily. Please review and advise. Eleanor Bacon MA documented in this encounter [facility] 12-31-2023 Instructions Lianet Alonzo MD - 12/31/2023 11:25 AM EDT It was a pleasure to see you today! Please continue taking your medications as advised: Start 15 mg prednisone (10 mg in morning, 5 mg in evening) Taper to 12.5 mg in 1-month Remember to have your labs drawn I look forward to seeing you at your next appointment. If you have any questions or concerns in the meantime, don t hesitate to reach out. documented in this encounter [facility] 12-31-2023 History of Presen t illness Narrative Images from the original note were not included. Rheumatology Follow-Up Note Alix Woody is a 58 year old year old male presents to the Rheumatology clinic for follow-up of: Recall: - Est care 11/2023: concern for b/L shoulder + hip stiffness + pain x4-6 months, improved with pred but relapsed? Concern for PMR, re-initiated steroids for monitoring. Elev ESR + CRP Presenting complaint(s): Polymyalgia rheumatica Re-initiated Prednisone taper at 20-mg and have been coming down by 2.5 mg every 4-weeks Since November, has been feeling much better in regards to stiffness and pain, almost at 0/10. He does however note 2-3 days out of the week where his symptoms increase to mild bilateral shoulder pain and stiffness which lasts for a few hours before resolving. Denies any issues at his hips. He is however noticing increased muscle cramps initiated a few weeks ago, across lower extremities, and thighs. Worse at night, and improve with hydration or eating bananas, Denies similar symptoms in upper extremities. Recent labs with normal potassium. Denies headaches, vision changes, jaw claudication. Strength preserved on exam. 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 Review of Systems: All 10 systems were reviewed completely. Pertinent positives are in HPI above. Physical Examination: Vitals: 12/31/23 1037 BP: 161/81 Pulse: 90 Temp: 98.5 F (36.9 C) General: no acute distress Eyes: no photophobia, sclerae without injunction or icterus Respiratory: Nonlabored breathing Cardiovascular: No cyanosis Skin: warm and dry, without rashes or lesions Joint Examination: Neck: Full ROM without pain. . Shoulders: Full ROM without pain, No swelling, warmth or tenderness. . Elbows: Full ROM without pain, No swelling, warmth or tenderness. . Wrists: Full ROM without pain, No swelling, warmth or tenderness. . Hands: Full ROM without pain, No swelling, warmth or tenderness. . Knees: Full ROM without pain, No swelling, warmth or point tenderness. . Ankles: Full ROM, No swelling, warmth or tenderness. . LABS: BMP (last 1 year, up to 8 values) 10/24/2023 12:12 PM Na 138 Cl 103 CO2 25 Glu 106 BUN 22 Cr 1.00 Ca 9.2 LFT's (last 3 years, up to 8 values) 10/24/2023 09/22/2022 07/11/2021 12:12 PM 8:47 AM 6:00 PM T Bili 0.3 0.4 0.6 Sed Rate (ESR) (mm/Hr) Date Value 11/23/2023 31 (H) C-Reactive Protein (mg/dL) Date Value 11/23/2023 2.1 (H) IMAGING: No pertinent imaging ASSESSMENT/PLAN: Alix Woody is a 58 year old male with history of Asthma, degenerative disc disease seen for a follow up visit: Polymyalgia Rheumatica Plan: Will taper down to 15 mg today for 1-month Patient prefers to split prednisone dosing as he feels worse the next day, continue 10 mg AM 5 mg PM Then taper by 2.5 mg every month until 10 mg Will taper by 1 mg once at 10-mg Will repeat inflammatory markers today Will order BMP, Mag due to concern for muscle cramps likely related to prednisone use however RTC: 3-months Patient staffed w/ Dr. Tilley. Lianet Alonzo MD Rheumatology Fellow PGY4 ATTENDING NOTE Teaching Physician Note: I saw and evaluated the patient. I personally obtained the [place] and critical portions of the history and physical exam. I reviewed the resident's documentation and discussed the patient with the resident. I agree with the resident's medical decision making as documented in the resident's note. Doyle Tilley MD Alix Woody has polymyalgia rheumatica. Responded well to prednisone 20mg daily, but has leg cramps which may be associated with his prednisone use. Alix Woody is currently on prednisone 17.5mg daily for the past 2 weeks. He will decrease to 15mg daily for 1 month, 12.5mg daily for 1 month, 10mg daily for 1 month, then decrease by 1mg per month. He finds that prednisone once daily dosing does not last throughout the day. He will take prednisone 10mg in AM and 5mg in PM for the 15mg per day doseing, then 10mg in AM and 2.5mg in PM for the 12.5mg per day dosing. Will then see if can tolerated 10mg in AM for the 10mg daily. If not, then may need to dose at 5mg BID when he is at 10mg per day dosing. Check Hep B/C and TB in case Kevzara may be needed for polymyalgia rheumatica management. Doyle Tilley MD Patient was identified by name and date of . Shirley Pederson Patient at risk for falls:No Falls Risk protocol implemented: No documented in this encounter [facility] 12-25-2023 Telephone encounter Note Left message on patients voicemail to contact office. Eilsabet Sellers MA [facility] 12-25-2023 Miscellaneous Notes Left message on patients voicemail to contact office. Elisabet Sellers MA Please call pt- blood work in October shows slightly abnormal marker of inflammation and elevated cholesterol. The rest of the blood work was normal. Has had made appt with area captain yet? I would like for him to start on cholesterol medication and recheck the FLP/LFT in 3 months. Is he willing to do that? documented in this encounter [facility] 12-25-2023 Telephone encounter Note Please call pt- blood work in October shows slightly abnormal marker of inflammation and elevated cholesterol. The rest of the blood work was normal. Has had made appt with area captain yet? I would like for him to start on cholesterol medication and recheck the FLP/LFT in 3 months. Is he willing to do that? [facility] 12-17-2023 Telephone encounter Note Pharmacy requesting refills as follows: Last office visit: 11/23/23 Last refill: 11/13/23 Requested Prescriptions Pending Prescriptions Disp Refills SUMAtriptan (IMITREX) 100 mg tablet [Pharmacy Med Name: sumatriptan 100 mg tablet] 10 tablet 0 Sig: take 1 tablet by mouth AT ONSET OF HEADACHE may repeat in 2 hours IF headache PERSISTS maximum daily dose of 2 tablets (200 milligrams) every 24 hours Please review and advise. Partha Summers [facility] 12-17-2023 Miscellaneous Notes Pharmacy requesting refills as follows: Last office visit: 11/23/23 Last refill: 11/13/23 Requested Prescriptions Pending Prescriptions Disp Refills SUMAtriptan (IMITREX) 100 mg tablet [Pharmacy Med Name: sumatriptan 100 mg tablet] 10 tablet 0 Sig: take 1 tablet by mouth AT ONSET OF HEADACHE may repeat in 2 hours IF headache PERSISTS maximum daily dose of 2 tablets (200 milligrams) every 24 hours Please review and advise. Neela Holman, Student documented in this encounter [facility] 12-10-2023 Note Addended by: LIAENT LIMA on: 12/10/2023 09:50 AM Modules accepted: Orders [facility] 12-10-2023 Note Addended by: LIANET LIMA on: 12/10/2023 09:50 AM Modules accepted: Orders [facility] 12-10-2023 Miscellaneous Notes Addended by: LIANET ALONZO on: 12/10/2023 09:50 AM Modules accepted: Orders documented in this encounter [facility] 11-23-2023 Instructions Lianet Alonzo MD - 11/23/2023 3:58 PM EDT It was a pleasure to see you today! Please continue taking your medications as advised: Take Prednisone 20 mg for the next 2-weeks Please message me in 12-14 days and tell me about your progress We will tailor medications accordingly Remember to have your labs drawn I look forward to seeing you at your next appointment. If you have any questions or concerns in the meantime, don t hesitate to reach out. documented in this encounter [facility] 11-23-2023 History of Presen t illness Narrative TEACHING PHYSICIAN DOCUMENTATION On this day I saw and examined the patient and was physically present for the [place] portions of the services provided. I agree with the resident's plan and notes. The history, physical findings, and medical decision-making are as follows: Patient here with neck and shoulder pain as well as Rheumatology New Clinic Patient Note Referring Physician: no referring provider Reason for referral: New patient, establish relationship History of present illness: Sonu Woody is a 58 year old male with PMH of Degenerative Disc Disease who presents to [facility] rheumatology clinic for evaluation of: Patient notes that around 4-6 months prior, he has noted bilateral shoulder and posterior neck pain, and bilateral hips (anterolateral). Symptoms are worse in the morning, with associated stiffness that lasts over 2-3 hours to be able to do regular tasks. Symptoms seem to be worsening this past month, extending into the evening and involve hands. Denies significant joint swelling. Was on prednisone 2-months prior due to poison sai and noted significant benefit. He has been consistently on this regimen for 30-days, noted significant benefit earlier on in the month however notes symptoms are getting worse now. Denies rashes, fevers/chills. Denies headaches, vision changes, jaw claudication. Has history of chronic lower back pain in setting of degenerative disease with lumbar fusion however symptoms of back are stable. 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 Pertinent positives are in HPI above. PHYSICAL EXAMINATION: Vitals: 11/23/23 1456 BP: 147/93 Pulse: 78 Temp: 98.4 F (36.9 C) General: no acute distress Eyes: no photophobia, sclerae without injunction or icterus Respiratory: nonlabored breathing Cardiovascular: no cyanosis Skin: warm and dry, without rashes or lesions DETAILED JOINT EXAMINATION: Neck: Full ROM without pain. Shoulders: Full ROM without pain, No swelling, warmth or tenderness. Elbows: Full ROM without pain, No swelling, warmth or tenderness. Wrists: Full ROM without pain, No swelling, warmth or tenderness. MCP: No swelling, warmth or tenderness. PIP: No swelling, warmth or tenderness. DIP: No swelling, warmth or tenderness. 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 Back: No scoliosis or kyphosis, No spinous process tenderness, Full ROM. Sacroiliac joints: MILES negative. Hips: Mild lateral tenderness to palpation Knees: Full ROM without pain, No swelling, warmth or point tenderness. Ankles: Full ROM, No swelling, warmth or tenderness. Toes: No swelling, warmth or tenderness. LABS: ESR 32 (10/2023) Normal RF Neg RANDI Normal CRP Normal lyme studies IMAGING: B/L hip x-ray 10/2023: No acute radiographic abnormality. ASSESSMENT/PLAN: Sonu Woody is a 58 year old male with PMH of Asthma, Degen disc disease who presents for eval for: Bilateral Shoulder + Hip Girdle Pain + Stiffness, concerning for polymyalgia rheumatica This is not a typical history, he started Pred 20-mg with improvement over 2-3 days however sx worsened a few weeks later on same dose. However over the past week he has been getting worse and he has been tapering on his own to 10-mg. ESR was 32, however was checked in the 2 weeks after prednisone 20 mg had been started Degenerative Disc Disease Plan: - We will plan to continue prednisone 20 mg for another 2 weeks consistently - Informed to contact me in 2 weeks to inform of progress - Labs including ESR, CRP, CCP, Myositis panel, CPK today to be complete and track progress - If symptoms not improving in 2-weeks, we will increase dose to 30-mg daily - If symptoms are improving, we will begin taper by 2.5 mg every month - We will also monitor ESR and CRP at this time - Once at 10-mg, we will taper by 1 mg monthly RTC: 4-weeks Staffed with Dr. Uriarte. --------- Lianet Alonzo MD PGY4 Rheumatology Fellow Patient was identified by name and date of . Rylie Dejernette Patient at risk for falls:No Falls Risk protocol implemented: No documented in this encounter [facility] 11-23-2023 History of Presen t illness Narrative TEACHING PHYSICIAN DOCUMENTATION On this day I saw and examined the patient and was physically present for the [place] portions of the services provided. I agree with the resident's plan and notes. The history, physical findings, and medical decision-making are as follows: Patient here with neck and shoulder pain that responded after 3 days of 20 mg prednisone. Has marked morning stiffness. 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 O: WD, WN white man. No temporal artery nodularity or tenderness. Shoulders: decreased ROM right. Right wrist slightly swollen. Rest of fingers OK. 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 Right knee slightly puffy. A: polymyalgia rheumatica is most probably diagnosis. Challenge is that 20 mg prednisone has not completely resolved his issues except perhaps his inflammatory markers which unfortunately were never obtained at the onset of illness. Less likely is early inflammatory arthritis. Even less likely would be an inflammatory myopathy. P: per Dr. Alonzo. Repeat labs today - check CK, CCP. Take 20 mg prednisone a day for 2 weeks and report back. If symptoms not completely better will go up to 30 mg prednisone a day. Once better, will taper down per usual with periodic checking of labs along the way. Sole Uriarte MD Rheumatology New Clinic Patient Note Referring Physician: no referring provider Reason for referral: New patient, establish relationship History of present illness: Sonu Woody is a 58 year old male with PMH of Degenerative Disc Disease who presents to [facility] rheumatology clinic for evaluation of: Patient notes that around 4-6 months prior, he has noted bilateral shoulder and posterior neck pain, and bilateral hips (anterolateral). Symptoms are worse in the morning, with associated stiffness that lasts over 2-3 hours to be able to do regular tasks. Symptoms seem to be worsening this past month, extending into the evening and involve hands. Denies significant joint swelling. Was on prednisone 2-months prior due to poison sai and noted significant benefit. He has been consistently on this regimen for 30-days, noted significant benefit earlier on in the month however notes symptoms are getting worse now. Denies rashes, fevers/chills. Denies headaches, vision changes, jaw claudication. Has history of chronic lower back pain in setting of degenerative disease with lumbar fusion however symptoms of back are stable. 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 Pertinent positives are in HPI above. PHYSICAL EXAMINATION: Vitals: 11/23/23 1456 BP: 147/93 Pulse: 78 Temp: 98.4 F (36.9 C) General: no acute distress Eyes: no photophobia, sclerae without injunction or icterus Respiratory: nonlabored breathing Cardiovascular: no cyanosis Skin: warm and dry, without rashes or lesions DETAILED JOINT EXAMINATION: Neck: Full ROM without pain. Shoulders: Full ROM without pain, No swelling, warmth or tenderness. Elbows: Full ROM without pain, No swelling, warmth or tenderness. Wrists: Full ROM without pain, No swelling, warmth or tenderness. MCP: No swelling, warmth or tenderness. PIP: No swelling, warmth or tenderness. DIP: No swelling, warmth or tenderness. 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 Back: No scoliosis or kyphosis, No spinous process tenderness, Full ROM. Sacroiliac joints: MILES negative. Hips: Mild lateral tenderness to palpation Knees: Full ROM without pain, No swelling, warmth or point tenderness. Ankles: Full ROM, No swelling, warmth or tenderness. Toes: No swelling, warmth or tenderness. LABS: ESR 32 (10/2023) Normal RF Neg RANDI Normal CRP Normal lyme studies IMAGING: B/L hip x-ray 10/2023: No acute radiographic abnormality. ASSESSMENT/PLAN: Sonu Woody is a 58 year old male with PMH of Asthma, Degen disc disease who presents for eval for: Bilateral Shoulder + Hip Girdle Pain + Stiffness, concerning for polymyalgia rheumatica This is not a typical history, he started Pred 20-mg with improvement over 2-3 days however sx worsened a few weeks later on same dose. However over the past week he has been getting worse and he has been tapering on his own to 10-mg. ESR was 32, however was checked in the 2 weeks after prednisone 20 mg had been started Degenerative Disc Disease Plan: - We will plan to continue prednisone 20 mg for another 2 weeks consistently - Informed to contact me in 2 weeks to inform of progress - Labs including ESR, CRP, CCP, Myositis panel, CPK today to be complete and track progress - If symptoms not improving in 2-weeks, we will increase dose to 30-mg daily - If symptoms are improving, we will begin taper by 2.5 mg every month - We will also monitor ESR and CRP at this time - Once at 10-mg, we will taper by 1 mg monthly RTC: 4-weeks Staffed with Dr. Uriarte. --------- Lianet Alonzo MD PGY4 Rheumatology Fellow Patient was identified by name and date of . Rylie Duenas Patient at risk for falls:No Falls Risk protocol implemented: No documented in this encounter [facility] 11-23-2023 Nurse Note Immunizations were given as ordered. Vaccination information sheet(s) given. Atul Katz MA [facility] 11-23-2023 Nurse Note Immunizations were given as ordered. Vaccination information sheet(s) given. Atul Katz MA documented in this encounter [facility] 11-23-2023 Note HNO ID: [id number] Author: NAVYA RODRÍGUEZ, DO Service: ? Author Type: Physician Type: Progress Notes Filed: 12/15/2023 12:39 Note Text: Subjective HPI Pt continues to have joint pain in both shoulders, both hips and hands b/l He wakes up with the pain, which used to get better at noon, but now does not go away He tried PT and cortisone injections in both shoulders, which did not help He tried prednisone for the pain, which did help ALLERGIES Allergen Reactions Med-Hist Hives Hay Pollens Extract Other: See Comments Vancomycin Rash Current Outpatient Medications Medication Sig Dispense Refill SUMAtriptan (IMITREX) 100 mg tablet take 1 tablet by mouth AT ONSET OF HEADACHE may repeat in 2 hours IF headache PERSISTS maximum daily dose of 2 tablets ( 200 milligrams ) every 24 hours 10 tablet 0 sertraline (ZOLOFT) 50 mg tablet Take 1 tablet by mouth once daily. 30 tablet 2 traZODone (DESYREL) 150 mg tablet Take 1 tablet by mouth daily at bedtime. 30 tablet 11 zoster vaccine, recombinant, adjuvanted, (SHINGRIX) 50 mcg/0.5 mL injection Repeat 2nd dose in 2-6 months. 1 Each 0 morphine SR (MS CONTIN, ORAMORPH SR) 15 mg 12 hr tablet TAKE 1 TABLET BY MOUTH TWICE DAILY for up to 28 days traMADol (ULTRAM) 50 mg tablet Take 50 mg by mouth three times a day. tid predniSONE (DELTASONE) 20 mg tablet Take 1 tablet by mouth once daily. (Patient not taking: Reported on 11/23/2023) 20 tablet 0 No current facility-administered medications for this visit. ACTIVE PROBLEM LIST Depressive Disorder Moderate Persistent Asthma Without Complication Chronic Midline Low Back Pain With Bilateral Sciatica Chronic Insomnia Acute Pain of Left Shoulder Obesity, Class I, Bmi 30-34.9 Hyperlipidemia, Mixed Migraine Without Aura and Without Status Migrainosus, Not Intractable Bmi 31.0-31.9,Adult History of Covid-19 Trigger Finger, Right Middle Finger Chronic Pain of Both Shoulders Left Ankle Tendonitis Elevated Blood Pressure Reading Without Diagnosis of Hypertension Social History Tobacco Use Smoking status: Never Smokeless tobacco: Never Tobacco comments: Tobacco no use; Vaping Use Vaping status: Never Used Substance Use Topics Alcohol use: No Drug use: No Family History Problem Relation Age of Onset other (aortic aneurysm rupture) Paternal Grandfather Asthma Mother Ischemic Heart Disease Father other (Heart disease) Father Prostate Cancer Maternal Grandfather Reviewed past medical history, family history and surgeries. All medications and supplements were reviewed with the patient. Review of Systems Constitutional: Negative for chills, diaphoresis, fever, malaise/fatigue and weight loss. HENT: Negative for ear pain and hearing loss. Eyes: Negative for blurred vision and double vision. Respiratory: Negative for cough and shortness of breath. Cardiovascular: Negative for chest pain, palpitations and leg swelling. Gastrointestinal: Negative for constipation, diarrhea and heartburn. Genitourinary: Negative for dysuria and frequency. Musculoskeletal: Positive for joint pain. Negative for back pain, falls and myalgias. Skin: Negative for itching and rash. Neurological: Negative for dizziness, weakness and headaches. Endo/Heme/Allergies: Does not bruise/bleed easily. Psychiatric/Behavioral: Negative for depression and substance abuse. The patient does not have insomnia. Objective BP 120/80 Pulse 86 Temp 36.8 ?C (98.2 ?F) Resp 16 Ht 180.3 cm (5' 11) Wt 98.9 kg (218 lb) SpO2 94% BMI 30.40 kg/m? Physical Exam Constitutional: Appearance: Normal appearance. HENT: Head: Normocephalic and atraumatic. Nose: Nose normal. Mouth/Throat: Mouth: Mucous membranes are moist. Dentition: Normal dentition. Eyes: General: Lids are normal. Extraocular Movements: Extraocular movements intact. Conjunctiva/sclera: Conjunctivae normal. Pupils: Pupils are equal, round, and reactive to light. Neck: Thyroid: No thyroid mass or thyromegaly. Vascular: No carotid bruit. Trachea: Phonation normal. Cardiovascular: Rate and Rhythm: Normal rate and regular rhythm. Heart sounds: Normal heart sounds. No murmur heard. No friction rub. No gallop. Pulmonary: Effort: Pulmonary effort is normal. Breath sounds: Normal breath sounds. No wheezing or rales. Abdominal: General: Bowel sounds are normal. There is no distension. Palpations: Abdomen is soft. There is no mass. Tenderness: There is no abdominal tenderness. Musculoskeletal: General: No swelling or tenderness (over anterior GH joints b/l). Normal range of motion. Cervical back: Normal range of motion and neck supple. No edema. Lymphadenopathy: Cervical: No cervical adenopathy. Skin: General: Skin is warm and dry. Findings: No erythema or rash. Nails: There is no clubbing. Neurological: Mental Status: He is alert and oriented to person, place, and time. Cranial Nerve (more content not included)... [facility] 11-23-2023 History of Presen t illness Narrative Subjective HPI Pt continues to have joint pain in both shoulders, both hips and hands b/l He wakes up with the pain, which used to get better at noon, but now does not go away He tried PT and cortisone injections in both shoulders, which did not help He tried prednisone for the pain, which did help ALLERGIES Allergen Reactions Med-Hist Hives Hay Pollens Extract Other: See Comments Vancomycin Rash Current Outpatient Medications Medication Sig Dispense Refill SUMAtriptan (IMITREX) 100 mg tablet take 1 tablet by mouth AT ONSET OF HEADACHE may repeat in 2 hours IF headache PERSISTS maximum daily dose of 2 tablets ( 200 milligrams ) every 24 hours 10 tablet 0 sertraline (ZOLOFT) 50 mg tablet Take 1 tablet by mouth once daily. 30 tablet 2 traZODone (DESYREL) 150 mg tablet Take 1 tablet by mouth daily at bedtime. 30 tablet 11 zoster vaccine, recombinant, adjuvanted, (SHINGRIX) 50 mcg/0.5 mL injection Repeat 2nd dose in 2-6 months. 1 Each 0 morphine SR (MS CONTIN, ORAMORPH SR) 15 mg 12 hr tablet TAKE 1 TABLET BY MOUTH TWICE DAILY for up to 28 days traMADol (ULTRAM) 50 mg tablet Take 50 mg by mouth three times a day. tid predniSONE (DELTASONE) 20 mg tablet Take 1 tablet by mouth once daily. (Patient not taking: Reported on 11/23/2023) 20 tablet 0 No current facility-administered medications for this visit. ACTIVE PROBLEM LIST Depressive Disorder Moderate Persistent Asthma Without Complication Chronic Midline Low Back Pain With Bilateral Sciatica Chronic Insomnia Acute Pain of Left Shoulder Obesity, Class I, Bmi 30-34.9 Hyperlipidemia, Mixed Migraine Without Aura and Without Status Migrainosus, Not Intractable Bmi 31.0-31.9,Adult History of Covid-19 Trigger Finger, Right Middle Finger Chronic Pain of Both Shoulders Left Ankle Tendonitis Elevated Blood Pressure Reading Without Diagnosis of Hypertension Social History Tobacco Use Smoking status: Never Smokeless tobacco: Never Tobacco comments: Tobacco no use; Vaping Use Vaping status: Never Used Substance Use Topics Alcohol use: No Drug use: No Family History Problem Relation Age of Onset other (aortic aneurysm rupture) Paternal Grandfather Asthma Mother Ischemic Heart Disease Father other (Heart disease) Father Prostate Cancer Maternal Grandfather Reviewed past medical history, family history and surgeries. All medications and supplements were reviewed with the patient. Review of Systems Constitutional: Negative for chills, diaphoresis, fever, malaise/fatigue and weight loss. HENT: Negative for ear pain and hearing loss. Eyes: Negative for blurred vision and double vision. Respiratory: Negative for cough and shortness of breath. Cardiovascular: Negative for chest pain, palpitations and leg swelling. Gastrointestinal: Negative for constipation, diarrhea and heartburn. Genitourinary: Negative for dysuria and frequency. Musculoskeletal: Positive for joint pain. Negative for back pain, falls and myalgias. Skin: Negative for itching and rash. Neurological: Negative for dizziness, weakness and headaches. Endo/Heme/Allergies: Does not bruise/bleed easily. Psychiatric/Behavioral: Negative for depression and substance abuse. The patient does not have insomnia. Objective BP 120/80 Pulse 86 Temp 36.8 C (98.2 F) Resp 16 Ht 180.3 cm (5' 11) Wt 98.9 kg (218 lb) SpO2 94% BMI 30.40 kg/m Physical Exam Constitutional: Appearance: Normal appearance. HENT: Head: Normocephalic and atraumatic. Nose: Nose normal. Mouth/Throat: Mouth: Mucous membranes are moist. Dentition: Normal dentition. Eyes: General: Lids are normal. Extraocular Movements: Extraocular movements intact. Conjunctiva/sclera: Conjunctivae normal. Pupils: Pupils are equal, round, and reactive to light. Neck: Thyroid: No thyroid mass or thyromegaly. Vascular: No carotid bruit. Trachea: Phonation normal. Cardiovascular: Rate and Rhythm: Normal rate and regular rhythm. Heart sounds: Normal heart sounds. No murmur heard. No friction rub. No gallop. Pulmonary: Effort: Pulmonary effort is normal. Breath sounds: Normal breath sounds. No wheezing or rales. Abdominal: General: Bowel sounds are normal. There is no distension. Palpations: Abdomen is soft. There is no mass. Tenderness: There is no abdominal tenderness. Musculoskeletal: General: No swelling or tenderness (over anterior GH joints b/l). Normal range of motion. Cervical back: Normal range of motion and neck supple. No edema. Lymphadenopathy: Cervical: No cervical adenopathy. Skin: General: Skin is warm and dry. Findings: No erythema or rash. Nails: There is no clubbing. Neurological: Mental Status: He is alert and oriented to person, place, and time. Cranial Nerves: No cranial nerve deficit. Motor: Motor function is intact. Coordination: Coordination normal. Gait: Gait is intact. Psychiatric: Attention and Perception: Attention normal. Mood and Affect: Mood and affect normal. Speech: Speech normal. Behavior: Behavior normal. Behavior is cooperative. Thought Content: Thought content normal. Cognition and Memory: Cognition and memory normal. Judgment: Judgment normal. ASSESSMENT/PLAN: 1. Arthralgia, unspecified joint - ICD9: 719.40, ICD10: M25.50 (primary diagnosis) - PREDNISONE 20 MG TABLET - CONSULT TO RHEUM/IMMUN DISEASE 2. Encounter for immunization - ICD9: V03.89, ICD10: Z23 - INFLUENZA VACCINE, AGE 6MO-64YR, TRIVALENT (AFLURIA, FLULAVAL, FLUVIRIN, FLUZONE) - IMADM PRQ ID SUBQ/IM NJXS 1 VACC Navya Rodríguez DO documented in this encounter [facility] 11-15-2023 Telephone encounter Note [facility] Visit Date 11/12/[address] Marcos felton to be signed. Atul Katz MA [facility] 11-15-2023 Miscellaneous Notes [facility] Visit Date 11/12/[address] Sheets green folder to be signed. Atul Katz MA documented in this encounter [facility] 11-13-2023 Telephone encounter Note patient phones requesting refills as follows: Last seen 10/23/23 . Last refill 09/18/23 . Requested Prescriptions Pending Prescriptions Disp Refills SUMAtriptan (IMITREX) 100 mg tablet 10 tablet 0 Sig: take 1 tablet by mouth AT ONSET OF HEADACHE may repeat in 2 hours IF headache PERSISTS maximum daily dose of 2 tablets ( 200 milligrams ) every 24 hours Please review and advise. Atul Katz MA\ [facility] 11-13-2023 Miscellaneous Notes patient phones requesting refills as follows: Last seen 10/23/23 . Last refill 09/18/23 . Requested Prescriptions Pending Prescriptions Disp Refills SUMAtriptan (IMITREX) 100 mg tablet 10 tablet 0 Sig: take 1 tablet by mouth AT ONSET OF HEADACHE may repeat in 2 hours IF headache PERSISTS maximum daily dose of 2 tablets ( 200 milligrams ) every 24 hours Please review and advise. Atul Katz MA\ documented in this encounter [facility] 10-23-2023 History of Presen t illness Narrative Radiology Service Progress Note PATIENT NAME: Alix Woody DATE OF SERVICE: October 23, 2023 TIME: 3:52 PM PATIENT IDENTITY VERIFICATION COMPLETED USING TWO (2) IDENTIFIERS: Name and Date of confirmed by patient verbally. FALL SCREENING: Has the patient had 2 falls in the last year or 1 fall with injury or currently using an Ambulatory Assistive Device (Walker, Cane, Wheelchair, Crutches, etc.)? No PATIENT GENDER DATA: Male PATIENT RELEVANT IMPLANT DATA REVIEWED: Not Applicable PATIENT PRESENTS WITH AN IMPLANTABLE OR ATTACHED PRODUCTION CONTROL PLANNER: No RADIOLOGY DEPARTMENT: General X-ray: Exam(s) Completed: Pelvis X-Ray: Pelvis with Hip Bilateral PERIPHERAL IV DATA: Not applicable SIGNED BY: RT Rush(R) October 23, 2023 3:52 PM documented in this encounter [facility] 10-23-2023 History of Presen t illness Narrative Subjective HPI Pt is here for joint pain His shoulders have been bothering him for about 6 months, hips just started hurting about one month ago He is taking prednisone for poison sai and it is helping his joint pain He saw PT for his shoulders They think the pain is due to arthritis He was advised to talk to Dr. Ibrahim about a cortisone injection His hands started hurting at the same time as his hips The pain is primarily at the base of his thumbs His is concerned that he has lyme disease ALLERGIES Allergen Reactions Med-Hist Hives Hay Pollens Extract Other: See Comments Vancomycin Rash Current Outpatient Medications Medication Sig Dispense Refill sertraline (ZOLOFT) 50 mg tablet Take 1 tablet by mouth once daily. 30 tablet 2 traZODone (DESYREL) 150 mg tablet Take 1 tablet by mouth daily at bedtime. 30 tablet 11 SUMAtriptan (IMITREX) 100 mg tablet take 1 tablet by mouth AT ONSET OF HEADACHE may repeat in 2 hours IF headache PERSISTS maximum daily dose of 2 tablets ( 200 milligrams ) every 24 hours 10 tablet 0 predniSONE (DELTASONE) 20 mg tablet Take 1 tablet by mouth once daily. 20 tablet 0 morphine SR (MS CONTIN, ORAMORPH SR) 15 mg 12 hr tablet TAKE 1 TABLET BY MOUTH TWICE DAILY for up to 28 days traMADol (ULTRAM) 50 mg tablet Take 50 mg by mouth three times a day. tid zoster vaccine, recombinant, adjuvanted, (SHINGRIX) 50 mcg/0.5 mL injection Repeat 2nd dose in 2-6 months. 1 Each 0 No current facility-administered medications for this visit. ACTIVE PROBLEM LIST Depressive Disorder Moderate Persistent Asthma Without Complication Chronic Midline Low Back Pain With Bilateral Sciatica Chronic Insomnia Acute Pain of Left Shoulder Obesity, Class I, Bmi 30-34.9 Hyperlipidemia, Mixed Migraine Without Aura and Without Status Migrainosus, Not Intractable Bmi 31.0-31.9,Adult History of Covid-19 Trigger Finger, Right Middle Finger Chronic Pain of Both Shoulders Left Ankle Tendonitis Elevated Blood Pressure Reading Without Diagnosis of Hypertension Social History Tobacco Use Smoking status: Never Smokeless tobacco: Never Tobacco comments: Tobacco no use; Vaping Use Vaping Use: Never used Substance Use Topics Alcohol use: No Drug use: No Family History Problem Relation Age of Onset other (aortic aneurysm rupture) Paternal Grandfather Asthma Mother Ischemic Heart Disease Father other (Heart disease) Father Prostate Cancer Maternal Grandfather Reviewed past medical history, family history and surgeries. All medications and supplements were reviewed with the patient. Review of Systems Constitutional: Negative for chills, diaphoresis, fever, malaise/fatigue and weight loss. HENT: Negative for ear pain and hearing loss. Eyes: Negative for blurred vision and double vision. Respiratory: Negative for cough and shortness of breath. Cardiovascular: Negative for chest pain, palpitations and leg swelling. Gastrointestinal: Negative for constipation, diarrhea and heartburn. Genitourinary: Negative for dysuria and frequency. Musculoskeletal: Positive for joint pain and myalgias. Negative for back pain and falls. Skin: Negative for itching and rash. Neurological: Negative for dizziness, weakness and headaches. Endo/Heme/Allergies: Does not bruise/bleed easily. Psychiatric/Behavioral: Negative for depression and substance abuse. The patient does not have insomnia. Objective BP 122/78 Pulse 83 Temp 36.9 C (98.4 F) Resp 16 Ht 180.3 cm (5' 11) Wt 97.5 kg (215 lb) SpO2 97% BMI 29.99 kg/m Physical Exam Constitutional: Appearance: Normal appearance. HENT: Head: Normocephalic and atraumatic. Nose: Nose normal. Mouth/Throat: Mouth: Mucous membranes are moist. Dentition: Normal dentition. Eyes: General: Lids are normal. Extraocular Movements: Extraocular movements intact. Conjunctiva/sclera: Conjunctivae normal. Pupils: Pupils are equal, round, and reactive to light. Neck: Thyroid: No thyroid mass or thyromegaly. Vascular: No carotid bruit. Trachea: Phonation normal. Cardiovascular: Rate and Rhythm: Normal rate and regular rhythm. Heart sounds: Normal heart sounds. No murmur heard. No friction rub. No gallop. Pulmonary: Effort: Pulmonary effort is normal. Breath sounds: Normal breath sounds. No wheezing or rales. Abdominal: General: Bowel sounds are normal. There is no distension. Palpations: Abdomen is soft. There is no mass. Tenderness: There is no abdominal tenderness. Musculoskeletal: General: No swelling or tenderness. Normal range of motion. Cervical back: Normal range of motion and neck supple. No edema. Lymphadenopathy: Cervical: No cervical adenopathy. Skin: General: Skin is warm and dry. Findings: No erythema or rash. Nails: There is no clubbing. Neurological: Mental Status: He is alert and oriented to person, place, and time. Cranial Nerves: No cranial nerve deficit. Motor: Motor function is intact. Coordination: Coordination normal. Gait: Gait is intact. Psychiatric: Attention and Perception: Attention normal. Mood and Affect: Mood and affect normal. Speech: Speech normal. Behavior: Behavior normal. Behavior is cooperative. Thought Content: Thought content normal. Cognition and Memory: Cognition and memory normal. Judgment: Judgment normal. ASSESSMENT/PLAN: 1. Arthralgia, unspecified joint - ICD9: 719.40, ICD10: M25.50 (primary diagnosis) - LYME AB LATE >30 DAYS SYMPTOMS - RHEUMATOID FACTOR - SEDIMENTATION RATE, WESTERGREN - C-REACTIVE PROTEIN - RANDI BY IFA SCREEN - THYROID STIMULATING HORMONE - VITAMIN B12 - PREDNISONE 20 MG TABLET 2. Bilateral hip pain - ICD9: 719.45, ICD10: M25.551, M25.552 - XR HIP BILATERAL 5V PEL/AP/LAT EACH HIP 3. Hyperlipidemia, mixed - ICD9: 272.2, ICD10: E78.2 - LIPID PANEL BASIC - COMPREHENSIVE METABOLIC PANEL - COMPLETE BLOOD COUNT 4. Screening for prostate cancer - ICD9: V76.44, ICD10: Z12.5 - PSA/PROSTATE SPECIFIC ANTIGEN SCREENING Navya Rodríguez DO documented in this encounter [facility] 10-15-2023 Telephone encounter Note Patient requesting refills: Last office visit 08/21/2023. Last refill 07/27/2023 nov none Requested Prescriptions Pending Prescriptions Disp Refills sertraline (ZOLOFT) 50 mg tablet 30 tablet 2 Sig: Take 1 tablet by mouth once daily. Please review and advise. Elisabet Sellers MA [facility] 10-15-2023 Miscellaneous Notes Patient requesting refills: Last office visit 08/21/2023. Last refill 07/27/2023 nov none Requested Prescriptions Pending Prescriptions Disp Refills sertraline (ZOLOFT) 50 mg tablet 30 tablet 2 Sig: Take 1 tablet by mouth once daily. Please review and advise. Elisabet Sellers MA documented in this encounter [facility] 10-04-2023 Telephone encounter Note Patient requesting call back one sent in, he is completely out of medication. Please advise. Atul Katz MA [facility] 10-04-2023 Miscellaneous Notes Patient requesting call back one sent in, he is completely out of medication. Please advise. Atul Katz MA Patient requesting refills as follows: Last Office Visit 08/21/23 NOV none. Last Refill 09/22/22. Requested Prescriptions Pending Prescriptions Disp Refills traZODone (DESYREL) 150 mg tablet 30 tablet 11 Sig: Take 1 tablet by mouth daily at bedtime. Please review and advise. Eleanor Bacon MA documented in this encounter [facility] 10-04-2023 Telephone encounter Note Patient requesting refills as follows: Last Office Visit 08/21/23 NOV none. Last Refill 09/22/22. Requested Prescriptions Pending Prescriptions Disp Refills traZODone (DESYREL) 150 mg tablet 30 tablet 11 Sig: Take 1 tablet by mouth daily at bedtime. Please review and advise. Eleanor Bacon MA [facility] 09-27-2023 Telephone encounter Note Received fax from [facility] requesting signature for orders. Placed in green folder. Elisabet Sellers MA [facility] 09-27-2023 Miscellaneous Notes Received fax from [facility] requesting signature for orders. Placed in green folder. Elisabet Sellers MA documented in this encounter [facility] 09-18-2023 Telephone encounter Note Patient requesting refills: Last office visit 08/21/2023. Last refill 07/24/2023 nov . Requested Prescriptions Pending Prescriptions Disp Refills SUMAtriptan (IMITREX) 100 mg tablet 10 tablet 0 Sig: take 1 tablet by mouth AT ONSET OF HEADACHE may repeat in 2 hours IF headache PERSISTS maximum daily dose of 2 tablets ( 200 milligrams ) every 24 hours Please review and advise. Elisabet Sellers MA [facility] 09-18-2023 Miscellaneous Notes Patient requesting refills: Last office visit 08/21/2023. Last refill 07/24/2023 nov . Requested Prescriptions Pending Prescriptions Disp Refills SUMAtriptan (IMITREX) 100 mg tablet 10 tablet 0 Sig: take 1 tablet by mouth AT ONSET OF HEADACHE may repeat in 2 hours IF headache PERSISTS maximum daily dose of 2 tablets ( 200 milligrams ) every 24 hours Please review and advise. Elisabet Sellers MA documented in this encounter [facility] 09-04-2023 Telephone encounter Note [facility] visit date 08/30/[address] Marcos rodriguez folder to be signed. Atul Katz MA [facility] 09-04-2023 Miscellaneous Notes [facility] visit date 08/30/[address] Marcos rodriguez folder to be signed. Atul Katz MA documented in this encounter [facility] 08-29-2023 Note HNO ID: [id number] Author: MARIANNE SHELBY MD Service: ? Author Type: Physician Type: Progress Notes Filed: 08/29/2023 14:13 Note Text: UNIVERSAL PROTOCOL / SAFETY CHECKLIST Procedure to be Performed: EMG Sign In: A Moment of CARE was completed. Personnel directly involved with the procedure wore the appropriate PPE (Personal Protective Equipment). Patient/Surrogate Stated/Verified: PATIENT VERIFIED(optional for EMERGENT procedures): Patient name, Date of , Relevant allergies, and The intended procedure Time Out Communication: Intended patient and procedure match the source documents. Correct side/site marked and visible. Sign Out: SIGN OUT (optional for EMERGENT procedures): Post-procedure follow-up management communicated and Plan of Care Visit completed when applicable. La Shelby MD Staff, General Neurology [facility] 08-29-2023 History of Presen t illness Narrative UNIVERSAL PROTOCOL / SAFETY CHECKLIST Procedure to be Performed: EMG Sign In: A Moment of CARE was completed. Personnel directly involved with the procedure wore the appropriate PPE (Personal Protective Equipment). Patient/Surrogate Stated/Verified: PATIENT VERIFIED(optional for EMERGENT procedures): Patient name, Date of , Relevant allergies, and The intended procedure Time Out Communication: Intended patient and procedure match the source documents. Correct side/site marked and visible. Sign Out: SIGN OUT (optional for EMERGENT procedures): Post-procedure follow-up management communicated and Plan of Care Visit completed when applicable. La Shelby MD Staff, General Neurology documented in this encounter [facility] 08-29-2023 History of Presen t illness Narrative ED Follow Up: [facility]23. 1. How are you feeling since your ED visit? Better Have your symptoms improved or resolved? Yes 2. Were you prescribed any medications while in the ED or advised to stop any medication? Yes - If yes, were you able to fill your prescriptions? Yes -if stopped medication, what was the medication? na 3. Were you advised to schedule a follow up appointment with your provider? Yes - If no, Do you feel like you need an appointment scheduled? Not applicable - If yes, Do you need this scheduled now or has this already been scheduled? No 4. Were you able to contact the office or monkey breeder provider prior to your ED visit? No 5. Is there anything else I can do for you today? No documented in this encounter [facility] 08-21-2023 Instructions Navya Rodríguez DO - 08/21/2023 10:09 AM EDT Buy a cock up splint to wear at night on your left hand to reduce symptoms of carpal tunnel syndrome EXERCISES TO OBTAIN NORMAL RANGE OF MOVEMENT IN JOINTS OF THE FOOT AND ANKLE Do 2 times per day: and 5 repetitions of each exercise. Ankle and Foot: Sit on table with foot hanging free. Hold each position for 5-10 seconds and then return to original position. a) Raise toes and foot upward as far as possible. b) Bend toes and foot downward as far as possible. c) With foot at right angle to leg, turn foot in toward other foot. d) With foot at right angle to leg, turn foot outward away from other foot. e) Move ankle so that big toe describes a ruby (circumduction). documented in this encounter [facility] 08-21-2023 History of Presen t illness Narrative Subjective HPI Pt is here for acute visit. 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 He would like prednisone, does not want a shot at this time He gets sharp ankle pain intermittently while he is walking, then it resolves Has been going on for about 6 months No injury ALLERGIES Allergen Reactions Med-Hist Hives Hay Pollens Extract Other: See Comments Vancomycin Rash Current Outpatient Medications Medication Sig Dispense Refill sertraline (ZOLOFT) 50 mg tablet take 1 tablet by mouth once daily 30 tablet 2 SUMAtriptan (IMITREX) 100 mg tablet take 1 tablet by mouth AT ONSET OF HEADACHE may repeat in 2 hours IF headache PERSISTS maximum daily dose of 2 tablets ( 200 milligrams ) every 24 hours 10 tablet 0 traZODone (DESYREL) 150 mg tablet Take 1 tablet by mouth daily at bedtime. 30 tablet 11 fluticasone (FLONASE) 50 mcg/actuation nasal spray instill 1 spray into each nostril once daily 16 g 2 albuterol HFA (PROAIR HFA) 90 mcg/actuation inhaler Inhale 2 Puffs as instructed every 4 hours as needed. 1 Each 2 morphine SR (MS CONTIN, ORAMORPH SR) 15 mg 12 hr tablet TAKE 1 TABLET BY MOUTH TWICE DAILY for up to 28 days traMADol (ULTRAM) 50 mg tablet tid fluticasone-salmeterol (ADVAIR, WIXELA) 250-50 mcg/dose inhaler inhale 1 puff by mouth twice a day (Patient not taking: Reported on 08/21/2023) 1 Each 2 zoster vaccine, recombinant, adjuvanted, (SHINGRIX) 50 mcg/0.5 mL injection Repeat 2nd dose in 2-6 months. 1 Each 0 No current facility-administered medications for this visit. ACTIVE PROBLEM LIST Depressive Disorder Moderate Persistent Asthma Without Complication Chronic Midline Low Back Pain With Bilateral Sciatica Chronic Insomnia Acute Pain of Left Shoulder Obesity, Class I, Bmi 30-34.9 Hyperlipidemia, Mixed Migraine Without Aura and Without Status Migrainosus, Not Intractable Bmi 31.0-31.9,Adult History of Covid-19 Trigger Finger, Right Middle Finger Social History Tobacco Use Smoking status: Never Smokeless tobacco: Never Tobacco comments: Tobacco no use; Vaping Use Vaping Use: Never used Substance Use Topics Alcohol use: No Drug use: No Family History Problem Relation Age of Onset other (aortic aneurysm rupture) Paternal Grandfather Asthma Mother Ischemic Heart Disease Father other (Heart disease) Father Prostate Cancer Maternal Grandfather Reviewed past medical history, family history and surgeries. All medications and supplements were reviewed with the patient. Review of Systems Constitutional: Negative for malaise/fatigue and weight loss. HENT: Negative for ear pain and hearing loss. Eyes: Negative for blurred vision and double vision. Respiratory: Negative for shortness of breath. Cardiovascular: Negative for palpitations and leg swelling. Gastrointestinal: Negative for constipation, diarrhea and heartburn. Genitourinary: Negative for dysuria and frequency. Musculoskeletal: Positive for joint pain. Negative for back pain and falls. Skin: Positive for itching and rash. Neurological: Positive for tingling and sensory change. Negative for dizziness. Endo/Heme/Allergies: Does not bruise/bleed easily. Psychiatric/Behavioral: Negative for depression and substance abuse. The patient does not have insomnia. Objective BP 130/82 Pulse 71 Temp 36.9 C (98.4 F) Resp 16 Ht 180.3 cm (5' 11) Wt 97.5 kg (215 lb) SpO2 94% BMI 29.99 kg/m Physical Exam Constitutional: Appearance: Normal appearance. HENT: Head: Normocephalic and atraumatic. Nose: Nose normal. Mouth/Throat: Mouth: Mucous membranes are moist. Dentition: Normal dentition. Eyes: General: Lids are normal. Extraocular Movements: Extraocular movements intact. Conjunctiva/sclera: Conjunctivae normal. Pupils: Pupils are equal, round, and reactive to light. Neck: Thyroid: No thyroid mass or thyromegaly. Vascular: No carotid bruit. Trachea: Phonation normal. Cardiovascular: Rate and Rhythm: Normal rate and regular rhythm. Heart sounds: Normal heart sounds. No murmur heard. No friction rub. No gallop. Pulmonary: Effort: Pulmonary effort is normal. Breath sounds: Normal breath sounds. No wheezing or rales. Abdominal: General: Bowel sounds are normal. There is no distension. Palpations: Abdomen is soft. There is no mass. Tenderness: There is no abdominal tenderness. Musculoskeletal: General: No swelling or tenderness. Normal range of motion. Cervical back: Normal range of motion and neck supple. No edema. Lymphadenopathy: Cervical: No cervical adenopathy. Skin: General: Skin is warm and dry. Findings: Erythema and rash (Vesicular rash over left dorsal forearm in linear pattern) present. Nails: There is no clubbing. Neurological: Mental Status: He is alert and oriented to person, place, and time. Cranial Nerves: No cranial nerve deficit. Motor: Motor function is intact. Coordination: Coordination normal. Gait: Gait is intact. Comments: Negative Tinel's, Positive phalen's, left hand Psychiatric: Attention and Perception: Attention normal. Mood and Affect: Mood and affect normal. Speech: Speech normal. Behavior: Behavior normal. Behavior is cooperative. Thought Content: Thought content normal. Cognition and Memory: Cognition and memory normal. Judgment: Judgment normal. ASSESSMENT/PLAN: 1. Poison sai - ICD9: 692.6, ICD10: L23.7 (primary diagnosis) - PREDNISONE 20 MG TABLET 2. Numbness and tingling in left hand - ICD9: 782.0, ICD10: R20.0, R20.2 - EMG(NEURO/NI) 3. Chronic pain of both shoulders - ICD9: 719.41, 338.29, ICD10: M25.511, G89.29, M25.512 - CONSULT TO PHYSICAL THERAPY 4. Hyperlipidemia, mixed - ICD9: 272.2, ICD10: E78.2 - COMPLETE BLOOD COUNT - COMPREHENSIVE METABOLIC PANEL - LIPID PANEL BASIC 5. Screening for prostate cancer - ICD9: V76.44, ICD10: Z12.5 - PSA/PROSTATE SPECIFIC ANTIGEN SCREENING 6. Left ankle tendonitis - ICD9: 727.06, ICD10: M77.52 Pt advised that prednisone for the poison sai may help this pain 7. Elevated blood pressure reading without diagnosis of hypertension - ICD9: 796.2, ICD10: R03.0 - Encouraged dietary sodium restriction/DASH diet - Recommended regular aerobic exercise. - Recommend home blood pressure monitoring, to bring results in on next visit - Goal of BP <130/80 Navya Rodríguez DO documented in this encounter [facility] 07-27-2023 Telephone encounter Note phar requesting refills: Last office visit 09/22/2022. Last refill 05/07/2023 nov none Requested Prescriptions Pending Prescriptions Disp Refills sertraline (ZOLOFT) 50 mg tablet [Pharmacy Med Name: SERTRALINE HCL 50 MG TABLET] 30 tablet 2 Sig: take 1 tablet by mouth once daily Please review and advise. Elisabet Sellers MA [facility] 07-27-2023 Miscellaneous Notes phar requesting refills: Last office visit 09/22/2022. Last refill 05/07/2023 nov none Requested Prescriptions Pending Prescriptions Disp Refills sertraline (ZOLOFT) 50 mg tablet [Pharmacy Med Name: SERTRALINE HCL 50 MG TABLET] 30 tablet 2 Sig: take 1 tablet by mouth once daily Please review and advise. Elisabet Sellers MA documented in this encounter [facility] 07-24-2023 Telephone encounter Note pharmacy electronically requesting refills as follows: Last seen 09/22/22 . Last refill 09/22/22 . No future appointments. Requested Prescriptions Pending Prescriptions Disp Refills SUMAtriptan (IMITREX) 100 mg tablet [Pharmacy Med Name: SUMATRIPTAN SUCC 100 MG TABLET] 10 tablet 3 Sig: take 1 tablet by mouth AT ONSET OF HEADACHE may repeat in 2 hours IF headache PERSISTS maximum daily dose of 2 tablets ( 200 milligrams ) every 24 hours Please review and advise. Atul Katz MA [facility] 07-24-2023 Miscellaneous Notes pharmacy electronically requesting refills as follows: Last seen 09/22/22 . Last refill 09/22/22 . No future appointments. Requested Prescriptions Pending Prescriptions Disp Refills SUMAtriptan (IMITREX) 100 mg tablet [Pharmacy Med Name: SUMATRIPTAN SUCC 100 MG TABLET] 10 tablet 3 Sig: take 1 tablet by mouth AT ONSET OF HEADACHE may repeat in 2 hours IF headache PERSISTS maximum daily dose of 2 tablets ( 200 milligrams ) every 24 hours Please review and advise. Atul Katz MA documented in this encounter [facility] 04-23-2023 History of Presen t illness Narrative Injection prepared per Dr. Bustillos's order and handed directly to him. Nataly Bernal LPN Associated Order(s): Additional Injections: R long A1 Post-Procedure Diagnose(s): Trigger finger, right middle finger Patient presents with: Right Middle Finger - New, Pain Right Hand - New, Pain HISTORY OF PRESENT ILLNESS Alix Woody is a 57 year old male right hand dominant who presents for evaluation of a right middle trigger finger and generalized pain and swelling. Patient notes that he has had mechanical symptoms at the right middle finger for upwards of 2 years. He has not had formal treatment for this. He notes that within the last several months, his motion has worsened and he has been unable to make a strong fist. He continues to have painful mechanical locking trigger finger. Location: Right hand, middle finger Severity: 7 on a scale of 0-10 Duration of symptoms: Over 1 year Date of injury n/a Symptoms have Worsened Previous treatment: Activity modification Context worse with Activity/Motion Occupation: [employer] Smoking status: Tobacco Use: Never (Tobacco no use;) REVIEW OF SYSTEMS Cardiovascular ROS:No history of chest pain, palpitation, orthopnea, cyanosis, pedal edema Neurologic ROS: Numbness and Tingling:No PAST MEDICAL HISTORY Past medical, surgical, family, and social histories have been reviewed and updated with the patient today and are located elsewhere in the medical record. Diabetes:No ALLERGIES ALLERGIES Allergen Reactions Med-Hist Hives Hay Pollens Extract Other: See Comments Vancomycin Rash PHYSICAL EXAMINATION Temp 36.8 C (98.3 F) Ht 180.3 cm (5' 11) Wt 100.2 kg (221 lb) BMI 30.82 kg/m Body mass index is 30.82 kg/m . General Appearance Well appearing, alert, in no acute distress, well-hydrated, well nourished. Alert and oriented times: 3 Normal affect times: 3 Appears stated age and well nourished Gait and station:normal Right Upper Extremity Exam: Inspection shows some slight swelling at the base of the right middle finger Subtle flexed posture at the PIP joint is noted at rest No wounds or lacerations Skin: WNL Tenderness to palpation: Tender at base of right middle finger ROM: Full composite fist, 1 cm deficit tip to palm Instability: none Sensation:Normal sensation Atrophy: None Brisk capillary refill Special tests: Painful mechanical locking at the middle finger with terminal passive flexion REVIEW OF STUDIES No new imaging obtained ASSESSMENT AND PLAN ASSESSMENT/PLAN: 1. Trigger finger, right middle finger - ICD9: 727.03, ICD10: M65.331 I reviewed the diagnosis at length with the patient. Some diagrams were made to help explain the relevant anatomy and we discussed treatment options for trigger finger. I recommended that he consider an injection and the risks and benefits of this were reviewed. Please see procedure note. We will plan on following up together in 1 month to assess his progress. All of his questions were answered to his satisfaction. Additional Injections: R long A1 for trigger finger Informed Consent Consent Obtained: Verbal [place] Protocol A moment to CARE was completed. SIGN IN Personnel directly involved with the procedure wore the appropriate PPE. Patient/Surrogate Stated/Verified: Patient name, Date of , Relevant allergies and Intended procedure TIME OUT Intended patient and procedure match the source document(s). Relevant labs, photos, and/or imaging studies have been reviewed. Correct side/site marked and visible. Medications required for procedure verified. 04/23/2023 9:11 AM The procedure site was prepped in the usual sterile fashion. Medications: 6 mg betamethasone acetate-betamethasone sodium phosphate 6 mg/mL Anesthetics: 1 mL lidocaine 10 mg/mL (1 %) Outcome: tolerated well, no immediate complications Post-injection instructions were reviewed with the patient and the patient voiced understanding of these instructions. SIGN OUT All instruments, equipment, possible retained foreign bodies accounted for. Jed Bustilols MD Patient educated on treatment options for trigger finger. Patient instructed to call the office with questions or concerns. REVIEW OF SYSTEMS: GENERAL: Well developed, well nourished. No acute distress PAIN: Pain yes and Chronic Pain yes CARDIOVASCULAR: Negative for chest pain, leg swelling and palpations. MSK: Negative for joint swelling SKIN: Negative for lesions, rash, itching, metal sensitivity NEURO: Negative for seizure, trauma, numbness/tingling of extremities. ENDOCRINE: Negative for diabetic associated symptoms HEMATOLOGY: Negative for excessive bleeding, clots, bleeding disorders. documented in this encounter [facility] 02-12-2023 Miscellaneous Notes Pharmacy requesting refills as follows: Last Office Visit 09/22/22. Last Refill 11/14/22. Requested Prescriptions Pending Prescriptions Disp Refills sertraline (ZOLOFT) 50 mg tablet [Pharmacy Med Name: SERTRALINE HCL 50 MG TABLET] 30 tablet 2 Sig: take 1 tablet by mouth once daily Please review and advise. Eleanor Bacon MA documented in this encounter [facility] 01-31-2023 History of Presen t illness Narrative ED Follow Up: Patient discharged from [facility] on 01/29/23 . 1. How are you feeling since your ED visit? Called left Pt VM for him to call the office with any questions or concerns Have your symptoms improved or resolved? Called left Pt VM for him to call the office with any questions or concerns 2. Were you prescribed any medications while in the ED or advised to stop any medication? Called left Pt VM for him to call the office with any questions or concerns - If yes, were you able to fill your prescriptions? Called left Pt VM for him to call the office with any questions or concerns -if stopped medication, what was the medication? Called left Pt VM for him to call the office with any questions or concerns 3. Were you advised to schedule a follow up appointment with your provider? Called left Pt VM for him to call the office with any questions or concerns - If no, Do you feel like you need an appointment scheduled? Called left Pt VM for him to call the office with any questions or concerns - If yes, Do you need this scheduled now or has this already been scheduled? Called left Pt VM for him to call the office with any questions or concerns 4. Were you able to contact the office or monkey breeder provider prior to your ED visit? Called left Pt VM for him to call the office with any questions or concerns 5. Is there anything else I can do for you today? Called left Pt VM for him to call the office with any questions or concerns documented in this encounter [facility] 11-14-2022 Miscellaneous Notes pharmacy electronically requesting refills as follows: Last seen 09/22/22 . Last refill 10/17/22 . Requested Prescriptions Pending Prescriptions Disp Refills sertraline (ZOLOFT) 50 mg tablet [Pharmacy Med Name: SERTRALINE HCL 50 MG TABLET] 30 tablet 0 Sig: take 1 tablet by mouth once daily Please review and advise. Atul Katz MA documented in this encounter [facility] 11-03-2022 Miscellaneous Notes Noted and done. Gisselle Tirado Please process referral. Elisabet Sellers MA Order attached Navya Sheets, DO Patient informed of results and recommendations. Patient states he is willing to have colonoscopy and would like to see Dr. Orosco, please place referral patient already has number to call and schedule. Atul Katz MA Please call pt- his cologuard test was abnormal. I recommend he have a colonoscopy. Is he willing to do that? Navya Rodríguez DO documented in this encounter [facility] 10-17-2022 Miscellaneous Notes Pharmacy requesting refills: Last office visit 09/22/2022. Last refill 09/19/2022 nov none Requested Prescriptions Pending Prescriptions Disp Refills sertraline (ZOLOFT) 50 mg tablet [Pharmacy Med Name: SERTRALINE HCL 50 MG TABLET] 30 tablet 0 Sig: take 1 tablet by mouth once daily Please review and advise. Michelle Rodriguez documented in this encounter [facility] 09-26-2022 Miscellaneous Notes Patient is informed and he will call back if he decides he wants to start cholesterol medications Eleanor Bacon MA Please call pt - blood work shows elevated cholesterol. Rest of blood work is normal. Is he willing to start on cholesterol medication? Navya Rodríguez DO documented in this encounter [facility] 09-22-2022 History of Presen t illness Narrative SUBJECTIVE: 56 year old male for annual routine checkup. I have fully reviewed the past medical, surgical, social and family history and updated the Histories section of [facility]. He was on lisinopril for HTN, but got a cough, so stopped it. Right middle finger is sticking in a flexed position He takes sertraline 50 mg daily for anxiety and depression, and trazodone 150 mg nightly for sleep. He is under the care of Dr. King, pain management, for lower back pain REVIEW OF SYSTEMS GENERAL: No weight loss, malaise or fevers HEENT: Negative for frequent or significant headaches, No changes in hearing or vision, no nose bleeds or other nasal problems NECK: Negative for lumps, goiter, pain and significant neck swelling RESPIRATORY: Negative for cough, hemoptysis, wheezing, COPD, dyspnea or shortness of breath CARDIOVASCULAR: Negative for chest pain, leg swelling, hypertension, CHF or palpitations GI: No nausea, vomiting, or diarrhea : No history of dysuria, frequency or incontinence MUSCULOSKELETAL: Right middle finger is sticking in a flexed position, positive for lower back pain SKIN: Negative for lesions, rash, and itching PSYCH: Positive for history of anxiety and insomnia HEMATOLOGY/LYMPHOLOGY: Negative for prolonged bleeding, bruising easily or swollen nodes ENDOCRINE: Negative for cold or heat intolerance, polyuria, polydipsia and goiter NEURO: No history of headaches, syncope, paralysis, seizures or tremors PHYSICAL EXAMINATION: BP 128/84 Pulse 73 Temp 36.7 C (98.1 F) Resp 16 Ht 180.3 cm (5' 11) Wt 98.5 kg (217 lb 3.2 oz) SpO2 94% BMI 30.29 kg/m General appearance: Well appearing, alert, in no acute distress, well-hydrated, obese Skin: Skin color, texture, turgor normal, no suspicious rashes or lesions Head: Normocephalic, no masses, lesions, tenderness or abnormalities Eyes: Anicteric sclera. Pupils are equally round and reactive to light. Extraocular movements are intact. Ears: External ears normal, canals clear Nose/Sinuses: Nares normal, septum midline, mucosa normal, no drainage or sinus tenderness Oropharynx: Lips, mucosa, and tongue normal, teeth and gums normal, oropharynx normal Neck: Supple, no adenopathy; thyroid symmetric, normal size, no bruits Back: Normal exam Lungs: Lungs clear to auscultation. No wheezing, rhonchi, rales. Heart: RRR without murmur, gallop, or rubs. No ectopy Abdomen: Normal abdominal exam, Abdomen soft, non-tender. Bowel sounds normal. No masses, organomegaly Extremities: right middle finger sticks in flexed position Musculoskeletal: No joint swelling, deformity, or tenderness Peripheral pulses: Normal Neuro: Gait normal. Reflexes normal and symmetric. Sensation grossly intact. ASSESSMENT/PLAN: 1. Well adult exam - ICD9: V70.0, ICD10: Z00.00 (primary diagnosis) - Counseled on healthy diet and regular exercise 2. Chronic insomnia - ICD9: 780.52, ICD10: F51.04 continue TRAZODONE 150 MG TABLET 3. Trigger finger, right middle finger - ICD9: 727.03, ICD10: M65.331 - CONSULT TO ORTHOPAEDIC SURGERY - Dr. Bustillos 4. Migraine without aura and without status migrainosus, not intractable - ICD9: 346.10, ICD10: G43.009 - SUMATRIPTAN 100 MG TABLET 5. Screening for lipid disorders - ICD9: V77.91, ICD10: Z13.220 - LIPID PANEL BASIC 6. Screening for prostate cancer - ICD9: V76.44, ICD10: Z12.5 - PSA/PROSTSPECAG SCRN 7. Screening for colon cancer - ICD9: V76.51, ICD10: Z12.11 - COLOGUARD 8. Screening for blood disease - ICD9: V78.9, ICD10: Z13.0 - CBC 9. Screening for endocrine, metabolic and immunity disorder - ICD9: V77.99, ICD10: Z13.29, Z13.228, Z13.0 - COMP METABOLIC PANEL 10. Depressive disorder - ICD9: 311, ICD10: F32.A Continue sertraline 11. Hyperlipidemia, mixed - ICD9: 272.2, ICD10: E78.2 Not current on statins, watch diet for fat and cholesterol 12. Chronic midline low back pain with bilateral sciatica - ICD9: 724.2, 724.3, 338.29, ICD10: M54.41, M54.42, G89.[address] King, pain management 13. Encounter for immunization - ICD9: V03.89, ICD10: Z23 - PNEUMOCOCCAL VACCINE (PREVNAR 20) - IMADM PRQ ID SUBQ/IM NJXS 1 VACC 14. Obesity, Class I, BMI 30-34.9 - ICD9: 278.00, ICD10: E66.9 Lifestyle modification recommended Navya Rodríguez DO documented in this encounter [facility] 09-22-2022 Nurse Note Immunizations were given as ordered. Vaccination information sheet(s) given. Atul Katz MA documented in this encounter [facility] 09-19-2022 Miscellaneous Notes pharmacy electronically requesting refills as follows: Last seen 05/20/21 . Last refill both 08/21/22 . Next office visit 09/22/22 Requested Prescriptions Pending Prescriptions Disp Refills sertraline (ZOLOFT) 50 mg tablet [Pharmacy Med Name: SERTRALINE HCL 50 MG TABLET] 30 tablet 0 Sig: take 1 tablet by mouth once daily traZODone (DESYREL) 150 mg tablet [Pharmacy Med Name: TRAZODONE 150 MG TABLET] 30 tablet 0 Sig: take 1 tablet by mouth at bedtime Please review and advise. Atul Katz MA documented in this encounter [facility] 09-11-2022 Miscellaneous Notes Left message informing patient script sent in. Atul Katz MA Rx sent Navya Rodríguez DO Patient left message stating he has poison sai again and it is really spreading. Patient is requesting prednisone be sent in like it has been in the past. Please advise. Atul Katz MA documented in this encounter [facility] 08-21-2022 Miscellaneous Notes Left message informing patient, phone number to reach the office was left for any questions or concerns. Eleanor Bacon MA Please call pt- due for appt Navya Rodríguez DO Pharmacy requesting refills as follows: Last Office Visit 05/20/21. Last Refill 03/15/22 trazodone and 08/22/21 for Zoloft. Requested Prescriptions Pending Prescriptions Disp Refills sertraline (ZOLOFT) 50 mg tablet [Pharmacy Med Name: SERTRALINE HCL 50 MG TABLET] 30 tablet 11 Sig: take 1 tablet by mouth once daily traZODone (DESYREL) 150 mg tablet [Pharmacy Med Name: TRAZODONE 150 MG TABLET] 30 tablet 5 Sig: take 1 tablet by mouth at bedtime Please review and advise. Eleanor Bacon MA documented in this encounter [facility] 07-11-2022 History of Presen t illness Narrative ED Follow Up: Patient discharged from [facility] ED on 07/08/2022 . 1. How are you feeling since your ED visit? NA Have your symptoms improved or resolved? Not applicable 2. Were you prescribed any medications while in the ED or advised to stop any medication? Not applicable - If yes, were you able to fill your prescriptions? Not applicable -if stopped medication, what was the medication? NA 3. Were you advised to schedule a follow up appointment with your provider? Not applicable - If no, Do you feel like you need an appointment scheduled? Not applicable - If yes, Do you need this scheduled now or has this already been scheduled? Not applicable 4. Were you able to contact the office or monkey breeder provider prior to your ED visit? Not applicable 5. Is there anything else I can do for you today? Not applicable Spoke to patients , she states alix cruz is better no need for anything. Elisabet Sellers MA documented in this encounter [facility] 03-15-2022 Miscellaneous Notes pharmacy electronically requesting refills as follows: Last seen 05/20/21 . Last refill 10/14/21 . Requested Prescriptions Pending Prescriptions Disp Refills traZODone (DESYREL) 150 mg tablet [Pharmacy Med Name: TRAZODONE 150 MG TABLET] 30 tablet 5 Sig: take 1 tablet by mouth at bedtime Please review and advise. Atul Katz MA documented in this encounter [facility] 12-09-2021 Miscellaneous Notes No Show Documentation Alix Woody no showed for an appointment on 12/09/21 with Charleen Maravilla APRN.[employer] at 10:20 AM. He was scheduled for 6 month follow up for hypertension. I tried calling the patient regarding his missed appointment. A message was left for him to return our call and reschedule. Resources discussed/offered to patient: return our call to reschedule. No show determined to be fault of patient: Yes This is the patients first no show in the last 12 months. Patient was rescheduled for n/a. Letter mailed : Yes Is this the Third or Fourth No Show? No Gisselle Tirado December 09, 2021 11:09 AM documented in this encounter [facility] 09-20-2021 Miscellaneous Notes Pharmacy requesting refills: Last office visit 05/20/2021. Last refill 06/29/2021 Nov 11/25/2021 Pending Prescriptions Disp Refills FLUTICASONE PROPIONATE 50 MCG/ACTUATION NASAL SPRAY,SUSPENSION 16 g 2 Sig: instill 1 spray into each nostril once daily CANDE: Yes Please review and advise. Elisabet Sellers MA documented in this encounter [facility] 09-05-2021 Miscellaneous Notes Pharmacy requesting refills: Last office visit 05/20/2021. Last refill 08/16/2020 nov 11/25/2021 Pending Prescriptions Disp Refills SUMATRIPTAN 100 MG TABLET 10 tablet 3 Sig: take 1 tablet by mouth AT ONSET OF HEADACHE may repeat in 2 hours if needed maximum daily dose of 2 CANDE: Yes Please review and advise. Elisabet Sellers MA documented in this encounter [facility] 08-22-2021 Miscellaneous Notes Pharmacy requesting refills as follows: Last Office Visit 05/20/21 nov 11/25/21. Last Refill 08/06/20. Pending Prescriptions Disp Refills SERTRALINE 50 MG TABLET 30 tablet 11 Sig: take 1 tablet by mouth once daily CANDE: Yes Please review and advise. Eleanor Bacon MA documented in this encounter [facility] 07-14-2021 History of Presen t illness Narrative ED Follow Up: Patient discharged from [facility] ED on 07/11/2021. 1. How are you feeling since your ED visit? N/a Have your symptoms improved or resolved? Not applicable 2. Were you prescribed any medications while in the ED or advised to stop any medication? Not applicable - If yes, were you able to fill your prescriptions? Not applicable -if stopped medication, what was the medication? n/a 3. Were you advised to schedule a follow up appointment with your provider? Not applicable - If no, Do you feel like you need an appointment scheduled? Not applicable - If yes, Do you need this scheduled now or has this already been scheduled? Not applicable 4. Were you able to contact the office or monkey breeder provider prior to your ED visit? Not applicable 5. Is there anything else I can do for you today? Not applicable Marimar Wagner MA documented in this encounter [facility] 06-29-2021 Miscellaneous Notes Pharmacy requesting refills as follows: Last Office Visit 05/20/21 nov 11/25/21. Last Refill 05/04/21. Pending Prescriptions Disp Refills FLUTICASONE 250 MCG-SALMETEROL 50 MCG/DOSE BLISTR POWDR FOR INHALATION Sig: inhale 1 puff by mouth twice a day CANDE: Yes Please review and advise. Eleanor Bacon MA documented in this encounter [facility] 03-23-2017 History of Past i llness Narrative Problem Noted Date Resolved Date Rash 03/23/2017 06/22/2017 Primary insomnia 10/13/2016 03/23/2017 Chronic midline low back pain 11/19/2015 Tibial plateau fracture 01/07/2015 11/19/19 16 Thoracic or lumbosacral neuritis or radiculitis, unspecified 11/19/2015 documented as of this encounter (statuses as of 06/29/2021) [facility] History of Past illness Narrative* Problem Noted Date Resolved Date Rash 03/23/2017 06/22/2017 Primary insomnia 10/13/2016 03/23/2017 Chronic midline low back pain 11/19/2015 Tibial plateau fracture 01/07/2015 11/19/19 16 Thoracic or lumbosacral neuritis or radiculitis, unspecified 11/19/2015 documented as of this encounter (statuses as of 07/14/2021) [facility] History of Past illness Narrative* Problem Noted Date Resolved Date Rash 03/23/2017 06/22/2017 Primary insomnia 10/13/2016 03/23/2017 Chronic midline low back pain 11/19/2015 Tibial plateau fracture 01/07/2015 11/19/19 16 Thoracic or lumbosacral neuritis or radiculitis, unspecified 11/19/2015 documented as of this encounter (statuses as of 08/22/2021) [facility] History of Past illness Narrative* Problem Noted Date Resolved Date Rash 03/23/2017 06/22/2017 Primary insomnia 10/13/2016 03/23/2017 Chronic midline low back pain 11/19/2015 Tibial plateau fracture 01/07/2015 11/19/19 16 Thoracic or lumbosacral neuritis or radiculitis, unspecified 11/19/2015 documented as of this encounter (statuses as of 09/05/2021) [facility] History of Past illness Narrative* Problem Noted Date Resolved Date Rash 03/23/2017 06/22/2017 Primary insomnia 10/13/2016 03/23/2017 Chronic midline low back pain 11/19/2015 Tibial plateau fracture 01/07/2015 11/19/19 16 Thoracic or lumbosacral neuritis or radiculitis, unspecified 11/19/2015 documented as of this encounter (statuses as of 09/20/2021) [facility] History of Past illness Narrative* Problem Noted Date Resolved Date Rash 03/23/2017 06/22/2017 Primary insomnia 10/13/2016 03/23/2017 Chronic midline low back pain 11/19/2015 Tibial plateau fracture 01/07/2015 11/19/19 16 Thoracic or lumbosacral neuritis or radiculitis, unspecified 11/19/2015 documented as of this encounter (statuses as of 12/09/2021) [facility] History of Past illness Narrative* Problem Noted Date Resolved Date Rash 03/23/2017 06/22/2017 Primary insomnia 10/13/2016 03/23/2017 Chronic midline low back pain 11/19/2015 Tibial plateau fracture 01/07/2015 11/19/19 16 Thoracic or lumbosacral neuritis or radiculitis, unspecified 11/19/2015 documented as of this encounter (statuses as of 03/17/2022) [facility] History of Past illness Narrative* Problem Noted Date Resolved Date Rash 03/23/2017 06/22/2017 Primary insomnia 10/13/2016 03/23/2017 Chronic midline low back pain 11/19/2015 Tibial plateau fracture 01/07/2015 11/19/19 16 Thoracic or lumbosacral neuritis or radiculitis, unspecified 11/19/2015 documented as of this encounter (statuses as of 07/11/2022) [facility] History of Past illness Narrative* Problem Noted Date Resolved Date Rash 03/23/2017 06/22/2017 Primary insomnia 10/13/2016 03/23/2017 Chronic midline low back pain 11/19/2015 Tibial plateau fracture 01/07/2015 11/19/19 16 Thoracic or lumbosacral neuritis or radiculitis, unspecified 11/19/2015 documented as of this encounter (statuses as of 08/22/2022) [facility] History of Past illness Narrative* Problem Noted Date Resolved Date Rash 03/23/2017 06/22/2017 Primary insomnia 10/13/2016 03/23/2017 Chronic midline low back pain 11/19/2015 Tibial plateau fracture 01/07/2015 11/19/19 16 Thoracic or lumbosacral neuritis or radiculitis, unspecified 11/19/2015 documented as of this encounter (statuses as of 09/11/2022) [facility] History of Past illness Narrative* Problem Noted Date Diagnosed Date Resolved Date Rash 03/23/2017 06/22/2017 Primary insomnia 10/13/2016 03/23/2017 Chronic midline low back pain 11/19/2015 05/26/2016 Tibial plateau fracture 01/07/2015 09/0 11/2015 Thoracic or lumbosacral neur itis or radiculitis, unspecified 11/19/2015 documented as of this encounter (statuses as of 09/19/2022) [facility] History of Past illness Narrative* Problem Noted Date Diagnosed Date Resolved Date Rash 03/23/2017 06/22/2017 Primary insomnia 10/13/2016 03/23/2017 Chronic midline low back pain 11/19/2015 05/26/2016 Tibial plateau fracture 01/07/2015 09/0 11/2015 Thoracic or lumbosacral neur itis or radiculitis, unspecified 11/19/2015 documented as of this encounter (statuses as of 09/26/2022) [facility] History of Past illness Narrative* Problem Noted Date Diagnosed Date Resolved Date Rash 03/23/2017 06/22/2017 Primary insomnia 10/13/2016 03/23/2017 Chronic midline low back pain 11/19/2015 05/26/2016 Tibial plateau fracture 01/07/2015 090 11/2015 Thoracic or lumbosacral neur itis or radiculitis, unspecified 11/19/2015 documented as of this encounter (statuses as of 10/09/2022) [facility] History of Past illness Narrative* Problem Noted Date Diagnosed Date Resolved Date Rash 03/23/2017 06/22/2017 Primary insomnia 10/13/2016 03/23/2017 Chronic midline low back pain 11/19/2015 05/26/2016 Tibial plateau fracture 01/07/20150 11/2015 Thoracic or lumbosacral neur itis or radiculitis, unspecified 11/19/2015 documented as of this encounter (statuses as of 10/17/2022) [facility] History of Past illness Narrative* Problem Noted Date Diagnosed Date Resolved Date Rash 03/23/2017 06/22/2017 Primary insomnia 10/13/2016 03/23/2017 Chronic midline low back pain 11/19/2015 05/26/2016 Tibial plateau fracture 01/07/2015 090 11/2015 Thoracic or lumbosacral neur itis or radiculitis, unspecified 11/19/2015 documented as of this encounter (statuses as of 11/03/2022) [facility] History of Past illness Narrative* Problem Noted Date Diagnosed Date Resolved Date Rash 03/23/2017 06/22/2017 Primary insomnia 10/13/2016 03/23/2017 Chronic midline low back pain 11/19/2015 05/26/2016 Tibial plateau fracture 01/07/2015 09/0 11/2015 Thoracic or lumbosacral neur itis or radiculitis, unspecified 11/19/2015 documented as of this encounter (statuses as of 11/15/2022) [place] [address]-12-2018 History of Past illness Narrative* Problem Noted Date Diagnosed Date Resolved Date Rash 03/23/2017 06/22/2017 Primary insomnia 10/13/2016 03/23/2017 Chronic midline low back pain 11/19/2015 05/26/2016 Tibial plateau fracture 01/07/201511/2015 Thoracic or lumbosacral neur itis or radiculitis, unspecified 11/19/2015 documented as of this encounter (statuses as of 01/31/2023) [facility] History of Past illness Narrative* Problem Noted Date Diagnosed Date Resolved Date Rash 03/23/2017 06/22/2017 Primary insomnia 10/13/2016 03/23/2017 Chronic midline low back pain 11/19/2015 05/26/2016 Tibial plateau fracture 01/07/201511/2015 Thoracic or lumbosacral neur itis or radiculitis, unspecified 11/19/2015 documented as of this encounter (statuses as of 02/12/2023) [facility] History of Past illness Narrative* Problem Noted Date Diagnosed Date Resolved Date Rash 03/23/2017 06/22/2017 Primary insomnia 10/13/2016 03/23/2017 Chronic midline low back pain 11/19/2015 05/26/2016 Tibial plateau fracture 01/07/201511/2015 Thoracic or lumbosacral neur itis or radiculitis, unspecified 11/19/2015 documented as of this encounter (statuses as of 04/23/2023) [facility] noteThere may be information available, but it has not been provided by the sender.[facility] Work Phone: Evaluation note* Diagnosis Moderate persistent asthma, uncomplicated Unspecified asthma [facility] encounter [facility] Diagnosis Depressive disorder Depressive disorder, not elsewhere classified [facility] encounter [facility]* Diagnosis Migraine without aura and without status migrainosus, not intractable Migraine without aura, without mention of intractable migraine without mention of status migrainosus documented [facility] this encounter [facility] noteNo assessment information availableWMercy Hospital Work Phone: Evaluation note* Diagnosis Chronic insomnia Insomnia, unspecified [facility]* Diagnosis Depressive disorder Depressive disorder, not elsewhere classified Chronic insomnia Insomnia, unspecified documented in this encounter [facility] note* Diagnosis Depressive disorder Depressive disorder, not elsewhere classified Chronic insomnia Insomnia, unspecified [facility]* Diagnosis Well adult exam- Primary Routine general medical examination at a health care facility Chronic insomnia Insomnia, unspecified Trigger finger, right middle finger Migraine without aura and without status migrainosus, not intractable Migraine without aura, without mention of intractable migraine without mention of status migrainosus Screening for lipid disorders Screening for prostate cancer Special screening for malignant neoplasm of prostate Screening for colon cancer Special screening for malignant neoplasms, colon Screening for blood disease Screening for unspecified disorder of blood and blood-forming organs Screening for endocrine, metabolic and immunity disorder Depressive disorder Depressive disorder, not elsewhere classified Hyperlipidemia, mixed Mixed hyperlipidemia Chronic midline low back pain with bilateral sciatica Encounter for immunization Need for other specified prophylactic vaccination against single bacterial disease Obesity, Class I, BMI 30-34.9 Obesity, unspecified documented in this encounter [facility] note* Diagnosis Depressive disorder Depressive disorder, not elsewhere classified [facility]* Diagnosis Positive colorectal cancer screening using Cologuard test- Primary [facility]* Diagnosis Trigger finger, right middle finger documented in this encounter [facility] note* Diagnosis Migraine without aura and without status migrainosus, not intractable Migraine without aura, without mention of intractable migraine without mention of status migrainosus documented in this encounter [facility] note* Diagnosis Numbness and tingling in left hand Disturbance of skin sensation [facility]* Diagnosis Poison sai- Primary Contact dermatitis and other eczema due to plants (except food) Numbness and tingling in left hand Disturbance of skin sensation Chronic pain of both shoulders Pain in joint, shoulder region Hyperlipidemia, mixed Mixed hyperlipidemia Screening for prostate cancer Special screening for malignant neoplasm of prostate Left ankle tendonitis Elevated blood pressure reading without diagnosis of hypertension Numbness and tingling in left hand Disturbance of skin sensation [facility]* Diagnosis Migraine without aura and without status migrainosus, not intractable Migraine without aura, without mention of intractable migraine without mention of status migrainosus [facility] Arthralgia, unspecified joint- Primary Bilateral hip pain Pain in joint, pelvic region and thigh Hyperlipidemia, mixed Mixed hyperlipidemia Screening for prostate cancer Special screening for malignant neoplasm of prostate [facility] Diagnosis Bilateral hip pain Pain in joint, pelvic region and thigh [facility] Diagnosis Migraine without aura and without status migrainosus, not intractable Migraine without aura, without mention of intractable migraine without mention of status migrainosus [facility] Diagnosis Polyarthralgia- Primary Pain in joint, multiple sites Hx of degenerative disc disease [facility] Diagnosis Polyarthralgia- Primary Pain in joint, multiple sites Hx of degenerative disc disease [facility]* Diagnosis Polyarthralgia- Primary Pain in joint, multiple sites Hx of degenerative disc disease [facility]* Diagnosis Polyarthralgia- Primary Pain in joint, multiple sites [facility]* Diagnosis Arthralgia, unspecified joint- Primary Encounter for immunization Need for other specified prophylactic vaccination against single bacterial disease [facility]* Diagnosis Migraine without aura and without status migrainosus, not intractable Migraine without aura, without mention of intractable migraine without mention of status migrainosus [facility] Diagnosis PMR (polymyalgia rheumatica) ([facility])- Primary Polymyalgia rheumatica documented [facility] this encounter [facility]* Diagnosis Polymyalgia rheumatica (HCC)- Primary Polymyalgia rheumatica [facility]* Diagnosis Depressive disorder Depressive disorder, not elsewhere classified [facility]* Diagnosis Polyarthralgia- Primary Pain in joint, multiple sites [facility]* Diagnosis Migraine without aura and without status migrainosus, not intractable Migraine without aura, without mention of intractable migraine without mention of status migrainosus [facility] Diagnosis Migraine without aura and without status migrainosus, not intractable Migraine without aura, without mention of intractable migraine without mention of status migrainosus [facility]* Diagnosis Polymyalgia rheumatica (HCC)- Primary Polymyalgia rheumatica [facility]* Diagnosis Depressive disorder Depressive disorder, not elsewhere classified [facility] encounter [facility]* Diagnosis Polymyalgia rheumatica (HCC)- Primary Polymyalgia rheumatica [facility]* Diagnosis Chronic insomnia Insomnia, unspecified [facility]* Diagnosis Chronic left shoulder pain- Primary Pain in joint, shoulder region Numbness and tingling in left hand Disturbance of skin sensation Hyperlipidemia, mixed Mixed hyperlipidemia Screening for prostate cancer Special screening for malignant neoplasm of prostate Obesity, Class I, BMI 30-34.9 Obesity, unspecified [facility] encounter [facility]* Diagnosis Polymyalgia rheumatica (HCC)- Primary Polymyalgia rheumatica [facility] Instruction Description Start Date CompletedPatient advised to follow-up with Primary Care Physician for BMI management. [facility] Work Phone: Instructions* Instruction Description Start Date CompletedPatient advised to follow-up with Primary Care Physician for BMI management. [facility] Work Phone: Instructions* Instruction Description Start Date Completed [facility] Work Phone: Instructions* Instruction Description Start Date CompletedPatient advised to follow-up with Primary Care Physician for BMI management. [facility] Work Phone: Reason for referral (narrative)* Diagnostic Procedure Only (Routine) - Closed Specialty Diagnoses / Procedures Referred By Nadir t Referred To Contact XR IMAGING Diagnoses Bilateral hip pain Procedures XR HIP BILATERAL 5V PEL/AP/LAT EACH HIP RADEX HIPS BILATERAL WITH PELVIS MINIMUM 5 VIEWS Navya Rodríguez, DO [address] [place] [address] [place] [address] Referral ID Status Reason Start Date Expiration Date V isits Requested Visits Authorized [id number] Closed Auto-Generate d Referral 10/23/2023 11/21/2024 1 1 [facility])No reason for referral information availableWMercy Hospital Work Phone: Reason for visit Narrative* Diagnostic Procedure Only (Routine) - Closed Specialty Diagnoses / Procedures Referred By Contac t Referred To Contact XR IMAGING Diagnoses Bilateral hip pain Procedures XR HIP BILATERAL 5V PEL/AP/LAT EACH HIP RADEX HIPS BILATERAL WITH PELVIS MINIMUM 5 VIEWS Navya Rodríguez, DO [address] [facility] [place] [address] [place] [address] Referral ID Status Reason Start Date Expiration Date V isits Requested Visits Authorized [id number] Closed Auto-Generate d Referral 10/23/2023 11/21/2024 1 1 [facility] Summary Purpose Family History No Family History Records FoundThere may be information available, but it has not been provided by the sender.There may be information available, but it has not been provided by the sender.There may be information available, but it has not been provided by the sender.There may be information available, but it has not been provided by the sender.No Family History Records FoundNo Family History Records FoundNo Family History Records FoundNo Family History Records FoundNo Family History Records Found Advance Directives No Advanced Directives Records FoundDocuments on File Type Date 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 Advance Directive(s) 10/25/2020 8:21 PM Advance Directive(s) 11/30/2019 2:46 PM Advance Directive(s) 11/01/2019 9:50 PM Advance Directive(s) 10/24/2019 7:58 PM Advance Directive(s) 08/17/2019 12:09 AM Advance Directive(s) 03/07/2019 9:57 AM Advance Directive(s) 09/30/2017 11:18 AM Advance Directive(s) 09/08/2017 10:45 PM Advance Directive(s) 01/28/2017 6:01 PM Documents on File 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 Date 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 Advance Directive(s) 07/11/2021 5:36 PM Advance Directive(s) 10/25/2020 8:21 PM Advance Directive(s) 11/30/2019 2:46 PM Advance Directive(s) 11/01/2019 9:50 PM Advance Directive(s) 10/24/2019 7:58 PM Advance Directive(s) 08/17/2019 12:09 AM Advance Directive(s) 03/07/2019 9:57 AM Advance Directive(s) 09/30/2017 11:18 AM Advance Directive(s) 09/08/2017 10:45 PM Advance Directive(s) 01/28/2017 6:01 PM Chief Complaint Chief Complaint Description Start Date right knee post Total Knee A rthroplasty Right on 03/07/2021 Preliminary chief co mplaint data, not yet signed by the author as of Chief Complaint Description Start Date right knee post Right knee M anipulation under anesthesia; Right #2 intra-articular cortisone injection right knee joint on 06/13/2021 Preliminary chief co mplaint data, not yet signed by the author as of Chief Complaint Description Start Date right knee pain Preliminary chief co mplaint data, not yet signed by the author as of Chief Complaint Description Start Date right knee post Right knee M anipulation under anesthesia; Right #2 intra-articular cortisone injection right knee joint on 06/13/2021 Preliminary chief co mplaint data, not yet signed by the author as of Reason for Referral Specialty Diagnoses / Procedures Referred By Contac t Referred To Contact Orthopedics / [facility] Department Diagnoses Trigger finger, right middle finger Procedures CONSULT TO ORTHOPAEDIC SURGERY OFFICE/OUTPATIENT [facility] 60-74 MINUTES Navya Rodríguez DO [address] [place] [address] Jed Bustillos MD [address] [address] Referral ID Status Reason Start Date Expiration Date Visits Requested Visits Authorized [id number] Pending Review PCP Requested Referral 09/22/2022 09/22/2023 1 1 Specialty Diagnoses / Procedures Referred By Contac t Referred To Contact General Surgery / GENERAL SURGERY Diagnoses Positive colorectal cancer screening using Cologuard test Procedures CONSULT TO GENERAL SURGERY OFFICE/OUTPATIENT [facility] MDM 60-74 MINUTES Navya Rodríguez DO [address] [place] [address] Tarun Orosco MD [address] [address] Referral ID Status Reason Start Date Expiration Date Visits Requested Visits Authorized [id number] Pending Review PCP Requested Referral 11/03/2022 11/03/2023 1 1 Specialty Diagnoses / Procedures Referred By Contac t Referred To Contact [facility] Diagnoses Chronic pain of both shoulders Procedures CONSULT TO PHYSICAL THERAPY PHYSICAL THERAPY EVALUATION [facility] COMPLEX 45 MINS Navya Rodríguez DO [address] [place] [id number] [facility] [place] [id number] Referral ID Status Reason Start Date Expiration Date Visits Requested Visits Authorized [id number] Pending Review Auto-Generat ed Referral 08/21/2023 08/20/2024 1 1 Specialty Diagnoses / Procedures Referred By Contac t Referred To Contact [facility] Diagnoses Numbness and tingling in left hand Procedures EMG(NEURO/NI) NERVE CONDUCTION STUDIES 9-10 STUDIES Navya Rodríguez DO [address] [place] [id number] [facility] [place] [address] [place] [address] Referral ID Status Reason Start Date Expiration Date V isits Requested Visits Authorized [id number] Closed Auto-Generate d Referral 08/21/2023 08/20/2024 1 1 Specialty Diagnoses / Procedures Referred By Contac t Referred To Contact Diagnoses Migraine without aura and without status migrainosus, not intractable Navya Rodríguez DO [address] [place] [address] Referral ID Status Reason Start Date Expiration Date Visits Re quested Visits Authorized [id number] Closed 1 1 Specialty Diagnoses / Procedures Referred By Contac t Referred To Contact Radiology Diagnoses Polyarthralgia Procedures XR ARTHRITIS SURVEY HAND/WRIST Rheumatology [address] [place] [address] [facility] DIAGNOSTIC RADIOLOGY [address] [facility] [place] [address] Referral ID Status Reason Start Date Expiration Date V isits Requested Visits Authorized [id number] Authorized 11/23/2023 11/22/2024 1 1 Specialty Diagnoses / Procedures Referred By Nadir guerrero Referred To Contact Diagnoses Arthralgia, unspecified joint Procedures CONSULT TO RHEUM/IMMUN DISEASE OFFICE/OUTPATIENT [facility] 60 MINUTES Navya Rodríguez DO [address] [place] [address] Donald Stanton [address] [facility] [address] [place] [address] Referral ID Status Reason Start Date Expiration Date Visits Requested Visits Authorized [id number] Authorized PCP Requested Referral 11/23/2023 11/22/2024 1 1 Health Concerns Infection Onset Date Last Indicated Resolved Time Influenza 01/29/2023 01/29/2023 Additional Source Comments (unrecognized sect ion and content) No Status Records FoundNo Status Records FoundNo Status Records FoundNo Status Records FoundNo Status Records FoundNo Status Records Found INFORMATION SOURCE (unrecogn ized section and content) DATE CREATED AUTHOR 02/05/2020 [facility] DATE CREATED AUTHOR AUTHOR'S ORGANIZ ATION 06/23/2021 [facility] DATE CREATED AUTHOR AUTHOR'S ORGANIZ ATION 08/31/2023 [facility] DATE CREATED AUTHOR AUTHOR'S ORGANIZ ATION 10/30/2024 [facility] DATE CREATED AUTHOR AUTHOR'S ORGANIZ ATION 11/02/2024 [facility] [place] DATE CREATED AUTHOR AUTHOR'S ORGANIZ ATION 12/04/2024 [facility] Reason for Visit (unrecogniz ed section and content) Reason For Visit Description Postop - subsequent visit Preliminary reason f or visit data, not yet signed by the author as of right knee post Total Knee Arthroplasty Right on 03/07/2021 Reason For Visit Description Start Date Postop - 1st visit Preliminary reason f or visit data, not yet signed by the author as of right knee post Right knee M anipulation under anesthesia; Right #2 intra-articular cortisone injection right knee joint on 06/13/2021 Reason For Visit Description Start Date New/Est - 1st visit with physician 06/21 Preliminary reason f or visit data, not yet signed by the author as of right knee pain Reason For Visit Description Start Date Postop - subsequent visit Preliminary reason f or visit data, not yet signed by the author as of right knee post Right knee M anipulation under anesthesia; Right #2 intra-articular cortisone injection right knee joint on 06/13/2021 Reason Comments Refill Request Reason Onset Date Comments ER F/U 07/14/2021 Reason Comments No Show First no show in 365 days. Reason Comments Patient Question Reason Comments Results Reason Comments Hypertension Follow up Reason Comments Results Reason Comments New Pain Specialty Diagnoses / Procedures Referred By Contac t Referred To Contact Orthopedics / [facility] DEPARTMENT Diagnoses Trigger finger, right middle finger Procedures CONSULT TO ORTHOPAEDIC SURGERY OFFICE/OUTPATIENT NEW HIGH MDM 60-74 MINUTES Navya Rodríguez DO [address] [place] [address] Jed Bustillos MD [address] [address] Referral ID Status Reason Start Date Expiration Date V isits Requested Visits Authorized [id number] Closed PCP Requested Referral 09/22/2022 09/22/2023 1 1 Reason Comments EMG Specialty Diagnoses / Procedures Referred By Contac t [facility] Diagnoses Numbness and tingling in left hand Procedures EMG(NEURO/NI) NERVE CONDUCTION STUDIES 9-10 STUDIES Navya Rodríguez DO [address] [place] [address] [facility] [address] [place] [address] Referral ID Status Reason Start Date Expiration Date V isits Requested Visits Authorized [id number] Closed Auto-Generate d Referral 08/21/2023 08/20/2024 1 1 Reason Comments [facility] visit date 08/30/23 Reason Comments Pain (Shoulder Pain) For the last 6 xavi hs, both shoulders have been painful, left hand started going numb a couple months ago poison sai Worse the last coupl e days, has been going on the last couple weeks, mostly on hands and lower legs Reason Onset Date Comments Refill Request 09/18/2023 Reason Comments Electronic Communication PT. Orders form Reason Onset Date Comments Refill Request 10/04/2023 Reason Onset Date Comments Refill Request 10/15/2023 Reason Comments Joint Pain Reason Onset Date Comments Refill Request 11/13/2023 Reason Comments Forms [facility] Visit Date 11/12/23 Reason Comments Consult with specialist New patient, to establish relationship Multiple joint pains Reason Comments F/U 1 month Joint pain states he is doing worse than last visit. Reason Comments Monitoring/follow-up Reason Onset Date Comments Refill Request 02/06/2024 Reason Comments Medication Problem Reason Comments Forms Signature [facility] to have all remaining upper and lower teeth removed with immediate implant placement, requires IV sedation Reason Onset Date Comments Refill Request 03/21/2024 Reason Comments Patient Update Reason Onset Date Comments ED Follow-up 10/24/2024 [facility] Reason Comments Numbness In both arms and freda ulders, left is worse than right. Has been going on for the last year but it has been becoming more constant Reason Comments Blood test Source Comments (unrecognize d section and content) In the event this informatio n is protected by the Federal Confidentiality of Alcohol and Drug Abuse Patient Records regulations: The Federal rules restrict any use of the information to criminally investigate or prosecute any alcohol or drug abuse patient.[facility] the event this information is protected by the Federal Confidentiality of Alcohol and Drug Abuse Patient Records regulations: The Federal rules restrict any use of the information to criminally investigate or prosecute any alcohol or drug abuse patient.[facility] CenterIn the event this information is protected by the Federal Confidentiality of Alcohol and Drug Abuse Patient Records regulations: The Federal rules restrict any use of the information to criminally investigate or prosecute any alcohol or drug abuse patient.[facility] CenterIn the event this information is protected by the Federal Confidentiality of Alcohol and Drug Abuse Patient Records regulations: The Federal rules restrict any use of the information to criminally investigate or prosecute any alcohol or drug abuse patient.[facility] CenterIn the event this information is protected by the Federal Confidentiality of Alcohol and Drug Abuse Patient Records regulations: The Federal rules restrict any use of the information to criminally investigate or prosecute any alcohol or drug abuse patient.[facility] CenterIn the event this information is protected by the Federal Confidentiality of Alcohol and Drug Abuse Patient Records regulations: The Federal rules restrict any use of the information to criminally investigate or prosecute any alcohol or drug abuse patient.[facility] CenterIn the event this information is protected by the Federal Confidentiality of Alcohol and Drug Abuse Patient Records regulations: The Federal rules restrict any use of the information to criminally investigate or prosecute any alcohol or drug abuse patient.[facility] CenterIn the event this information is protected by the Federal Confidentiality of Alcohol and Drug Abuse Patient Records regulations: The Federal rules restrict any use of the information to criminally investigate or prosecute any alcohol or drug abuse patient.[facility] CenterIn the event this information is protected by the Federal Confidentiality of Alcohol and Drug Abuse Patient Records regulations: The Federal rules restrict any use of the information to criminally investigate or prosecute any alcohol or drug abuse patient.[facility] CenterIn the event this information is protected by the Federal Confidentiality of Alcohol and Drug Abuse Patient Records regulations: The Federal rules restrict any use of the information to criminally investigate or prosecute any alcohol or drug abuse patient.[facility] CenterIn the event this information is protected by the Federal Confidentiality of Alcohol and Drug Abuse Patient Records regulations: The Federal rules restrict any use of the information to criminally investigate or prosecute any alcohol or drug abuse patient.[facility] CenterIn the event this information is protected by the Federal Confidentiality of Alcohol and Drug Abuse Patient Records regulations: The Federal rules restrict any use of the information to criminally investigate or prosecute any alcohol or drug abuse patient.[facility] CenterIn the event this information is protected by the Federal Confidentiality of Alcohol and Drug Abuse Patient Records regulations: The Federal rules restrict any use of the information to criminally investigate or prosecute any alcohol or drug abuse patient.[facility] CenterIn the event this information is protected by the Federal Confidentiality of Alcohol and Drug Abuse Patient Records regulations: The Federal rules restrict any use of the information to criminally investigate or prosecute any alcohol or drug abuse patient.[facility] CenterIn the event this information is protected by the Federal Confidentiality of Alcohol and Drug Abuse Patient Records regulations: The Federal rules restrict any use of the information to criminally investigate or prosecute any alcohol or drug abuse patient.[facility] CenterIn the event this information is protected by the Federal Confidentiality of Alcohol and Drug Abuse Patient Records regulations: The Federal rules restrict any use of the information to criminally investigate or prosecute any alcohol or drug abuse patient.[facility] CenterIn the event this information is protected by the Federal Confidentiality of Alcohol and Drug Abuse Patient Records regulations: The Federal rules restrict any use of the information to criminally investigate or prosecute any alcohol or drug abuse patient.[facility] the event this information is protected by the Federal Confidentiality of Alcohol and Drug Abuse Patient Records regulations: The Federal rules restrict any use of the information to criminally investigate or prosecute any alcohol or drug abuse patient.[facility] CenterIn the event this information is protected by the Federal Confidentiality of Alcohol and Drug Abuse Patient Records regulations: The Federal rules restrict any use of the information to criminally investigate or prosecute any alcohol or drug abuse patient.[facility] CenterIn the event this information is protected by the Federal Confidentiality of Alcohol and Drug Abuse Patient Records regulations: The Federal rules restrict any use of the information to criminally investigate or prosecute any alcohol or drug abuse patient.[facility] CenterIn the event this information is protected by the Federal Confidentiality of Alcohol and Drug Abuse Patient Records regulations: The Federal rules restrict any use of the information to criminally investigate or prosecute any alcohol or drug abuse patient.[facility] CenterIn the event this information is protected by the Federal Confidentiality of Alcohol and Drug Abuse Patient Records regulations: The Federal rules restrict any use of the information to criminally investigate or prosecute any alcohol or drug abuse patient.[facility] CenterIn the event this information is protected by the Federal Confidentiality of Alcohol and Drug Abuse Patient Records regulations: The Federal rules restrict any use of the information to criminally investigate or prosecute any alcohol or drug abuse patient.[facility] CenterIn the event this information is protected by the Federal Confidentiality of Alcohol and Drug Abuse Patient Records regulations: The Federal rules restrict any use of the information to criminally investigate or prosecute any alcohol or drug abuse patient.[facility] CenterIn the event this information is protected by the Federal Confidentiality of Alcohol and Drug Abuse Patient Records regulations: The Federal rules restrict any use of the information to criminally investigate or prosecute any alcohol or drug abuse patient.[facility] CenterIn the event this information is protected by the Federal Confidentiality of Alcohol and Drug Abuse Patient Records regulations: The Federal rules restrict any use of the information to criminally investigate or prosecute any alcohol or drug abuse patient.[facility] CenterIn the event this information is protected by the Federal Confidentiality of Alcohol and Drug Abuse Patient Records regulations: The Federal rules restrict any use of the information to criminally investigate or prosecute any alcohol or drug abuse patient.[facility] CenterIn the event this information is protected by the Federal Confidentiality of Alcohol and Drug Abuse Patient Records regulations: The Federal rules restrict any use of the information to criminally investigate or prosecute any alcohol or drug abuse patient.[facility] CenterIn the event this information is protected by the Federal Confidentiality of Alcohol and Drug Abuse Patient Records regulations: The Federal rules restrict any use of the information to criminally investigate or prosecute any alcohol or drug abuse patient.[facility] CenterIn the event this information is protected by the Federal Confidentiality of Alcohol and Drug Abuse Patient Records regulations: The Federal rules restrict any use of the information to criminally investigate or prosecute any alcohol or drug abuse patient.[facility] CenterIn the event this information is protected by the Federal Confidentiality of Alcohol and Drug Abuse Patient Records regulations: The Federal rules restrict any use of the information to criminally investigate or prosecute any alcohol or drug abuse patient.[facility] CenterIn the event this information is protected by the Federal Confidentiality of Alcohol and Drug Abuse Patient Records regulations: The Federal rules restrict any use of the information to criminally investigate or prosecute any alcohol or drug abuse patient.[facility] CenterIn the event this information is protected by the Federal Confidentiality of Alcohol and Drug Abuse Patient Records regulations: The Federal rules restrict any use of the information to criminally investigate or prosecute any alcohol or drug abuse patient.[facility] CenterIn the event this information is protected by the Federal Confidentiality of Alcohol and Drug Abuse Patient Records regulations: The Federal rules restrict any use of the information to criminally investigate or prosecute any alcohol or drug abuse patient.[facility] CenterIn the event this information is protected by the Federal Confidentiality of Alcohol and Drug Abuse Patient Records regulations: The Federal rules restrict any use of the information to criminally investigate or prosecute any alcohol or drug abuse patient.[facility] CenterIn the event this information is protected by the Federal Confidentiality of Alcohol and Drug Abuse Patient Records regulations: The Federal rules restrict any use of the information to criminally investigate or prosecute any alcohol or drug abuse patient.[facility] CenterIn the event this information is protected by the Federal Confidentiality of Alcohol and Drug Abuse Patient Records regulations: The Federal rules restrict any use of the information to criminally investigate or prosecute any alcohol or drug abuse patient.[facility] CenterIn the event this information is protected by the Federal Confidentiality of Alcohol and Drug Abuse Patient Records regulations: The Federal rules restrict any use of the information to criminally investigate or prosecute any alcohol or drug abuse patient.[facility] CenterIn the event this information is protected by the Federal Confidentiality of Alcohol and Drug Abuse Patient Records regulations: The Federal rules restrict any use of the information to criminally investigate or prosecute any alcohol or drug abuse patient.[facility] CenterIn the event this information is protected by the Federal Confidentiality of Alcohol and Drug Abuse Patient Records regulations: The Federal rules restrict any use of the information to criminally investigate or prosecute any alcohol or drug abuse patient.[facility] CenterIn the event this information is protected by the Federal Confidentiality of Alcohol and Drug Abuse Patient Records regulations: The Federal rules restrict any use of the information to criminally investigate or prosecute any alcohol or drug abuse patient.[facility] CenterIn the event this information is protected by the Federal Confidentiality of Alcohol and Drug Abuse Patient Records regulations: The Federal rules restrict any use of the information to criminally investigate or prosecute any alcohol or drug abuse patient.[facility] CenterIn the event this information is protected by the Federal Confidentiality of Alcohol and Drug Abuse Patient Records regulations: The Federal rules restrict any use of the information to criminally investigate or prosecute any alcohol or drug abuse patient.[facility] CenterIn the event this information is protected by the Federal Confidentiality of Alcohol and Drug Abuse Patient Records regulations: The Federal rules restrict any use of the information to criminally investigate or prosecute any alcohol or drug abuse patient.[facility] CenterIn the event this information is protected by the Federal Confidentiality of Alcohol and Drug Abuse Patient Records regulations: The Federal rules restrict any use of the information to criminally investigate or prosecute any alcohol or drug abuse patient.[facility] CenterIn the event this information is protected by the Federal Confidentiality of Alcohol and Drug Abuse Patient Records regulations: The Federal rules restrict any use of the information to criminally investigate or prosecute any alcohol or drug abuse patient.[facility] CenterIn the event this information is protected by the Federal Confidentiality of Alcohol and Drug Abuse Patient Records regulations: The Federal rules restrict any use of the information to criminally investigate or prosecute any alcohol or drug abuse patient.[facility] CenterIn the event this information is protected by the Federal Confidentiality of Alcohol and Drug Abuse Patient Records regulations: The Federal rules restrict any use of the information to criminally investigate or prosecute any alcohol or drug abuse patient.[facility] CenterIn the event this information is protected by the Federal Confidentiality of Alcohol and Drug Abuse Patient Records regulations: The Federal rules restrict any use of the information to criminally investigate or prosecute any alcohol or drug abuse patient.[facility] Care Teams (unrecognized sec tion and content) Independent Distributor Relationship Specialty Start Date End Date Sheets, Navya Arroyo DO PCP - General Family Practice 09/29/14 Independent Distributor Relationship Specialty Start Date End Date Navya Rodríguez DO PCP - General Family Practice 09/29/14 Independent Distributor Relationship Specialty Start Date End Date Navya Rodríguez DO PCP - General Family Practice 09/29/14 Independent Distributor Relationship Specialty Start Date End Date Navya Rodríguez DO PCP - General Family Medicine 09/29/14 Independent Distributor Relationship Specialty Start Date End Date Navya Rodríguez DO PCP - General Family Medicine 09/29/14 Independent Distributor Relationship Specialty Start Date End Date Sheets, Navya Arroyo DO PCP - General Family Medicine 09/29/14 Independent Distributor Relationship Specialty Start Date End Date Sheets, Navya Arroyo DO PCP - General Family Medicine 09/29/14 Independent Distributor Relationship Specialty Start Date End Date Sheets, Navya Arroyo DO PCP - General Family Medicine 09/29/14 Independent Distributor Relationship Specialty Start Date End Date Sheets, Navya Arroyo DO PCP - General Family Medicine 09/29/14 Independent Distributor Relationship Specialty Start Date End Date SheetsNavya DO PCP - General Family Medicine 09/29/14 Independent Distributor Relationship Specialty Start Date End Date SheetsNavya DO PCP - General Family Medicine 09/29/14 Independent Distributor Relationship Specialty Start Date End Date SheetsNavya DO PCP - General Family Medicine 09/29/14 Independent Distributor Relationship Specialty Start Date End Date Navya Rodríguez DO PCP - General Family Medicine 09/29/14 Independent Distributor Relationship Specialty Start Date End Date SheetsNavya DO PCP - General Family Medicine 09/29/14 Independent Distributor Relationship Specialty Start Date End Date SheetsNavya DO PCP - General Family Medicine 09/29/14 Independent Distributor Relationship Specialty Start Date End Date Sheets Navya Arroyo DO PCP - General Family Medicine 09/29/14 Independent Distributor Relationship Specialty Start Date End Date Sheets Navya Arroyo DO PCP - General Family Medicine 09/29/14 Independent Distributor Relationship Specialty Start Date End Date Sheets Navya Arroyo DO PCP - General Family Medicine 09/29/14 Independent Distributor Relationship Specialty Start Date End Date Marcos Navya Arroyo DO PCP - General Family Medicine 09/29/14 Independent Distributor Relationship Specialty Start Date End Date Marcos Navya Arroyo DO PCP - General Family Medicine 09/29/14 Independent Distributor Relationship Specialty Start Date End Date Marcos Navya Arroyo DO PCP - General Family Medicine 09/29/14 Independent Distributor Relationship Specialty Start Date End Date Marcos Navya Arroyo DO PCP - General Family Medicine 09/29/14 Independent Distributor Relationship Specialty Start Date End Date Navya Rodríguez DO PCP - General Family Medicine 09/29/14 Independent Distributor Relationship Specialty Start Date End Date Lianet Alonzo MD [address] [place] [id number] Fellow Rheumatology 12/15/23 Independent Distributor Relationship Specialty Start Date End Date Navya Rodríguez DO PCP - General Family Medicine 09/29/14 Independent Distributor Relationship Specialty Start Date End Date Lianet Aolnzo MD [address] [place] [address] Fellow Rheumatology 12/15/23 Independent Distributor Relationship Specialty Start Date End Date Navya Rodríguez DO PCP - General Family Medicine 09/29/14 Independent Distributor Relationship Specialty Start Date End Date Lianet Alonzo MD [address] [place] [address] Fellow Rheumatology 12/15/23 Independent Distributor Relationship Specialty Start Date End Date Lianet Alonzo MD [address] [place] [address] Fellow Rheumatology 12/15/23 Independent Distributor Relationship Specialty Start Date End Date Lianet Alonzo MD [address] [place] [address] Fellow Rheumatology 12/15/23 Independent Distributor Relationship Specialty Start Date End Date Lianet Alonzo MD [address] [place], [place] [id number] Fellow Rheumatology 12/15/23 Independent Distributor Relationship Specialty Start Date End Date Navya Rodríguez DO PCP - General Family Medicine 09/29/14 Independent Distributor Relationship Specialty Start Date End Date Navya Rodríguez DO PCP - General Family Medicine 09/29/14 Independent Distributor Relationship Specialty Start Date End Date Lianet Alonzo MD [address] [place] [address] Fellow Rheumatology 12/15/23 Team Status: Active Member Role/Relationship Status Dates Dr. Navya Rodríguez DO Family Provider Active Dr. Navya Rodríguez DO Primary Care Provider Active Team Status: Inactive Member Role/Relationship Status Dates Dr. Navya Rodríguez DO Primary Care Provider Active Start: October 30, 2024 End: October 30, 2024 Dr. Michael King MD Attending Provider Active Start: October 30, 2024 End: October 30, 2024 Dr. Michael King MD Referring Provider Active Start: October 30, 2024 End: October 30, 2024 Goals (unrecognized section and content) Goals may be documented in a n alternate sectionGoals may be documented in an alternate section Inactive Administered Medications - up to 3 most recent administrations Administered Medications (un recognized section and content) Medication Order MAR Action Action Date Dose Rate Site betamethasone acetate-betamethasone sodium phosphate 6 mg injection (CELESTONE) 6 mg, Injection - FOR ORTHO USE ONLY, ONCE, 1 dose, Starting on Sun04/23/23 at 0911, Until Sun04/23/23 at 0911 Given 04/23/2023 9:11 AM EST 6 mg Hand, Right lidocaine 10 mg/mL (1 %) 1 mL injection (XYLOCAINE) 1 mL, Injection - FOR ORTHO USE ONLY, ONCE, 1 dose, Starting on Sun04/23/23 at 0911, Until Sun04/23/23 at 0911 Given 04/23/2023 9:11 AM EST 1 mL Hand, Right FOR RECORDS PERTAINING TO PATIENTS WHO ARE OR HAVE BEEN ENROLLED IN A CHEMICAL DEPENDENCY/SUBSTANCEABUSE PROGRAM, SOME INFORMATION MAY BE OMITTED. This clinical summary was aggregated from multiple sources. Caution should be exercised in using it in the provision of clinical care. This summary normalizes information from multiple sources, and as a consequence, information in this document may materially change the coding, format and clinical context of patient data. In addition, data may be omitted in some cases. CLINICAL DECISIONS SHOULD BE BASED ON THE PRIMARY CLINICAL RECORDS. [facility]. provides no warranty or guarantee of the accuracy or completeness of information in this document.
== END | disposition home or self-care (01) ==
PROVIDERS: PCP Family Medicine; Referring Provider Anesthesiology Pain Medicine; Visit Provider Anesthesiology Pain Medicine
DX: M54.12 Radiculopathy, cervical region (principal)
CPT/HCPCS: 72141